=== PATIENT | male | born 1955 | race Caucasian/White ===

== ENCOUNTER 2019-09-21 15:20 | Inpatient (IN) | payer MEDICARE ==
[~2019-09-21] VITALS: Ht 172.7 cm; Wt 65.2 kg
[2019-09-21 15:52] LABS: Basophils # (auto) 0.1 10 ^3/uL (0-0.2); Basophils % (auto) 0.5 % (0.0-2.0); Eosinophils # (auto) 0 10 ^3/uL (0-0.8); Hematocrit 40.3 % (41.0-53.0); Hemoglobin 13.6 g/dL (13.5-17.5); Lymphocytes # (auto) 0.5 10 ^3/uL (0.4-5.4); Lymphocytes % (auto) 2.5 % (10.0-50.0); Mean Corpuscular Hemoglobin 29.3 pg (28.0-32.0); Mean Corpuscular Hgb Conc. 33.7 g/dL (32.0-36.0); Monocytes # (auto) 1.9 10 ^3/uL (0-1.3); Monocytes % (auto) 9.1 % (0.0-12.0); Neutrophils # (auto) 18.2 10 ^3/uL (1.6-8.6); Neutrophils % (auto) 87.9 % (37.0-80.0); Platelet Count (auto) 355 10^3/uL (140-450); Red Blood Cells 4.63 10^6/uL (4.5-5.90); Red Cell Distribution Width 14.8 % (11.8-14.3); White Blood Cell 20.7 10^3/uL (4.4-10.8)
[2019-09-21 16:08] LABS: Albumin 3.5 g/dL (3.4-5.0); BUN/Creatinine Ratio 14.9; Potassium 3.7 mmol/L (3.5-5.1)
[2019-09-21 16:20] LABS: Bilirubin, Total 0.9 mg/dL (0.2-1.0); Total Protein 8.4 g/dL (6.4-8.2)
[2019-09-21] MEDS ORDERED: SODIUM CHLORIDE 0.9% 500 ML IV ONE ×2 (17:45→21:45)
[2019-09-21] MEDS ORDERED: cefTRIAXone 1GM/50ML D5W 50 ML IV ONE (17:45)
[2019-09-21] MEDS ORDERED: levoFLOXacin 500MG 100 ML IV ONE (19:15)
[2019-09-21] MEDS ORDERED: ASPirin-EC 81 mg tab PO ONE (21:15)
[2019-09-21] MEDS ORDERED: ONDANSETRON HCL 4 MG/2 ML VIAL IV ONE (21:15)
[2019-09-21] MEDS ORDERED: KETOROLAC TROMETH 15 mg/ml 1ML VL IV ONE (21:30)
[2019-09-21] MEDS ORDERED: TEMAZEPAM 15 MG CAP PO PRN (21:45)
[2019-09-21] MEDS ORDERED: TAMSULOSIN HYDROCHLORIDE 0.4 MG CAP PO ONE (21:45)
[2019-09-21] MEDS ORDERED: ACETAMINOPHEN 325 MG TAB PO PRN (21:45)
[2019-09-21] MEDS ORDERED: ONDANSETRON HCL 4 MG/2 ML VIAL IV PRN (21:45)
[2019-09-21] MEDS ORDERED: MORPHINE SULF INJ 2 MG/ML SYRINGE 1ML IV PRN (22:00)
[2019-09-21] MEDS ORDERED: NITROGLYCERIN 0.4 MG SL TAB SL PRN (22:00)
[2019-09-21 22:32] LABS: Urine Bacteria MOD /hpf (None Seen); Urine Blood 1+ /uL (Negative); Urine Specific Gravity 1.007 (1.001-1.035); Urine WBC 126 /hpf (0 - 3); Urine WBC Clumps PRESENT /hpf (None Seen)
[2019-09-21 22:47] LABS: Alcohol, Urine < 3.0 mg/dL (0-5); Amphetamine Screen, Urine POSITIVE (NEGATIVE); Barbiturate Scree,Urine NEGATIVE (NEGATIVE); Benzodiazephine Screen, Urine NEGATIVE (NEGATIVE); Cannabinoid Screen, Urine NEGATIVE (NEGATIVE); Cocaine Screen, Urine NEGATIVE (NEGATIVE); Phencyclidine Screen, Urine NEGATIVE (NEGATIVE)
[2019-09-21 22:55] LABS: Opiate Scree,Urine NEGATIVE (NEGATIVE)
[2019-09-21] MEDS: SODIUM CHLORIDE 0.9% 1,000 ML IV SCH (23:00)
[2019-09-21] MEDS ORDERED: LABETALOL HCL 5 MG/ML 4ML SYRINGE IV ONE (23:00)
[2019-09-21] MEDS ORDERED: LABETALOL HCL 5 MG/ML ML 20ML VIAL IV ONE (23:28)
[2019-09-22] VITALS (8 sets, daily range): BP systolic 121–139; BP diastolic 75–95
[2019-09-22 06:56] LABS: Basophils # (auto) 0.1 10 ^3/uL (0-0.2); Basophils % (auto) 0.5 % (0.0-2.0); Eosinophils # (auto) 0 10 ^3/uL (0-0.8); Eosinophils % (auto) 0.1 % (0.0-7.0); Hematocrit 40.3 % (41.0-53.0); Hemoglobin 13.9 g/dL (13.5-17.5); Lymphocytes # (auto) 2.1 10 ^3/uL (0.4-5.4); Lymphocytes % (auto) 11.2 % (10.0-50.0); Mean Corpuscular Hemoglobin 30.2 pg (28.0-32.0); Mean Corpuscular Hgb Conc. 34.5 g/dL (32.0-36.0); Mean Corpuscular Volume 87.4 fL (80.0-100.0); Monocytes # (auto) 2.9 10 ^3/uL (0-1.3); Monocytes % (auto) 15.4 % (0.0-12.0); Neutrophils # (auto) 13.6 10 ^3/uL (1.6-8.6); Neutrophils % (auto) 72.8 % (37.0-80.0); Platelet Count (auto) 315 10^3/uL (140-450); Red Blood Cells 4.61 10^6/uL (4.5-5.90); White Blood Cell 18.6 10^3/uL (4.4-10.8)
[2019-09-22 07:18] LABS: Albumin 2.8 g/dL (3.4-5.0); Calcium 8.6 mg/dL (8.5-10.1); Potassium 4.2 mmol/L (3.5-5.1)
[2019-09-22 07:20] LABS: BUN/Creatinine Ratio 15.4
[2019-09-22 07:23] LABS: Bilirubin, Total 0.7 mg/dL (0.2-1.0); Total Protein 7.4 g/dL (6.4-8.2)
[2019-09-22] MEDS: cefTRIAXone 1GM/50ML D5W 50 ML IV SCH (08:22)
[2019-09-22] MEDS: SODIUM CHLORIDE 0.9% 1,000 ML IV SCH (08:23)
[2019-09-22] MEDS: PANTOPRAZOLE 40 MG/10 ML VIAL INJ IV SCH (09:46)
[2019-09-22] MEDS: METOPROLOL TARTRATE 50 MG TAB PO SCH ×2 (09:47→21:44)
[2019-09-22] MEDS ORDERED: ASPirin 81 mg TAB PO SCH (10:00)
[2019-09-22] MEDS: TAMSULOSIN HYDROCHLORIDE 0.4 MG CAP PO SCH (17:25)
[2019-09-22] MEDS ORDERED: MAGNESIUM OXIDE 400 MG TAB PO ONE (20:00)
[2019-09-23] MEDS: SODIUM CHLORIDE 0.9% 1,000 ML IV SCH ×2 (04:48→13:54)
[2019-09-23 05:00] VITALS: BP 135/87
[2019-09-23 05:42] LABS: Basophils # (auto) 0.1 10 ^3/uL (0-0.2); Basophils % (auto) 0.8 % (0.0-2.0); Eosinophils # (auto) 0.2 10 ^3/uL (0-0.8); Eosinophils % (auto) 1.4 % (0.0-7.0); Hematocrit 39.3 % (41.0-53.0); Hemoglobin 13.3 g/dL (13.5-17.5); Lymphocytes # (auto) 1.8 10 ^3/uL (0.4-5.4); Lymphocytes % (auto) 15.3 % (10.0-50.0); Mean Corpuscular Hemoglobin 29.5 pg (28.0-32.0); Mean Corpuscular Hgb Conc. 33.8 g/dL (32.0-36.0); Mean Corpuscular Volume 87.3 fL (80.0-100.0); Monocytes % (auto) 16.5 % (0.0-12.0); Nucleated Red Blood Cells % 0.1 %; Platelet Count (auto) 311 10^3/uL (140-450); Red Cell Distribution Width 15.1 % (11.8-14.3); White Blood Cell 12.1 10^3/uL (4.4-10.8)
[2019-09-23 05:57] LABS: BUN/Creatinine Ratio 17.4; Calcium 8.6 mg/dL (8.5-10.1); Potassium 4.4 mmol/L (3.5-5.1)
[2019-09-23 09:00] VITALS: BP 143/92
[2019-09-23] MEDS: cefTRIAXone 1GM/50ML D5W 50 ML IV SCH (09:00)
[2019-09-23] MEDS ORDERED: ADENOSINE 63 MG in GIVE UN-DILUTED 0 ML IV ONE (09:15)
[2019-09-23] MEDS: MAGNESIUM OXIDE 400 MG TAB PO SCH (10:48)
[2019-09-23] MEDS: METOPROLOL TARTRATE 50 MG TAB PO SCH ×2 (10:48→22:01)
[2019-09-23] MEDS: PANTOPRAZOLE 40 MG/10 ML VIAL INJ IV SCH (10:48)
[2019-09-23] MEDS: ASPirin 81 mg TAB PO SCH (10:52)
[2019-09-23 13:00] VITALS: BP 154/90
[2019-09-23] MEDS: AMPICILLIN INJ 1 GM in SODIUM CHL 0.9% 50 ML IV SCH ×3 (13:14→23:37)
[2019-09-23 17:00] VITALS: BP 131/82
[2019-09-23] MEDS: TAMSULOSIN HYDROCHLORIDE 0.4 MG CAP PO SCH (18:06)
[2019-09-23 22:00] VITALS: BP 145/85
[2019-09-24 05:00] VITALS: BP 132/79
[2019-09-24] MEDS: AMPICILLIN INJ 1 GM in SODIUM CHL 0.9% 50 ML IV SCH ×4 (05:41→23:33)
[2019-09-24 06:40] LABS: Basophils # (auto) 0.1 10 ^3/uL (0-0.2); Basophils % (auto) 1.2 % (0.0-2.0); Eosinophils # (auto) 0.4 10 ^3/uL (0-0.8); Eosinophils % (auto) 3.8 % (0.0-7.0); Hematocrit 40.3 % (41.0-53.0); Hemoglobin 13.5 g/dL (13.5-17.5); Lymphocytes # (auto) 1.8 10 ^3/uL (0.4-5.4); Lymphocytes % (auto) 17.2 % (10.0-50.0); Mean Corpuscular Hemoglobin 29.3 pg (28.0-32.0); Mean Corpuscular Hgb Conc. 33.5 g/dL (32.0-36.0); Mean Corpuscular Volume 87.3 fL (80.0-100.0); Monocytes # (auto) 1.2 10 ^3/uL (0-1.3); Monocytes % (auto) 11.2 % (0.0-12.0); Neutrophils # (auto) 7.1 10 ^3/uL (1.6-8.6); Neutrophils % (auto) 66.6 % (37.0-80.0); Platelet Count (auto) 376 10^3/uL (140-450); Red Blood Cells 4.61 10^6/uL (4.5-5.90); Red Cell Distribution Width 14.6 % (11.8-14.3); White Blood Cell 10.6 10^3/uL (4.4-10.8)
[2019-09-24 07:01] LABS: Albumin 2.6 g/dL (3.4-5.0); Calcium 8.7 mg/dL (8.5-10.1); Potassium 4.4 mmol/L (3.5-5.1)
[2019-09-24 07:02] LABS: BUN/Creatinine Ratio 17.6
[2019-09-24 07:05] LABS: Bilirubin, Total 0.5 mg/dL (0.2-1.0); Total Protein 7.9 g/dL (6.4-8.2)
[2019-09-24 08:44] VITALS: BP 146/87
[2019-09-24] MEDS: MAGNESIUM OXIDE 400 MG TAB PO SCH (10:02)
[2019-09-24] MEDS: SODIUM CHLORIDE 0.9% 1,000 ML IV SCH ×2 (10:03→17:39)
[2019-09-24] MEDS: ASPirin 81 mg TAB PO SCH (10:03)
[2019-09-24] MEDS: PANTOPRAZOLE 40 MG/10 ML VIAL INJ IV SCH (10:03)
[2019-09-24] MEDS: METOPROLOL TARTRATE 50 MG TAB PO SCH ×2 (10:03→22:11)
[2019-09-24 12:29] VITALS: BP 133/81
[2019-09-24 16:33] VITALS: BP 137/78
[2019-09-24] MEDS: TAMSULOSIN HYDROCHLORIDE 0.4 MG CAP PO SCH (17:39)
[2019-09-24 22:00] VITALS: BP 148/79
[2019-09-25 05:00] VITALS: BP 142/85
[2019-09-25] MEDS: SODIUM CHLORIDE 0.9% 1,000 ML IV SCH ×2 (05:18→17:45)
[2019-09-25] MEDS: AMPICILLIN INJ 1 GM in SODIUM CHL 0.9% 50 ML IV SCH ×4 (05:37→23:39)
[2019-09-25 06:06] LABS: Basophils # (auto) 0.1 10 ^3/uL (0-0.2); Basophils % (auto) 0.9 % (0.0-2.0); Eosinophils # (auto) 0.5 10 ^3/uL (0-0.8); Eosinophils % (auto) 4.2 % (0.0-7.0); Hemoglobin 14.1 g/dL (13.5-17.5); Lymphocytes % (auto) 16.4 % (10.0-50.0); Mean Corpuscular Hemoglobin 29.6 pg (28.0-32.0); Mean Corpuscular Hgb Conc. 34.3 g/dL (32.0-36.0); Mean Corpuscular Volume 86.3 fL (80.0-100.0); Monocytes # (auto) 1.4 10 ^3/uL (0-1.3); Monocytes % (auto) 11.6 % (0.0-12.0); Neutrophils # (auto) 8.3 10 ^3/uL (1.6-8.6); Neutrophils % (auto) 66.9 % (37.0-80.0); Nucleated Red Blood Cells % 0.2 %; Platelet Count (auto) 412 10^3/uL (140-450); Red Blood Cells 4.75 10^6/uL (4.5-5.90); Red Cell Distribution Width 14.5 % (11.8-14.3); White Blood Cell 12.5 10^3/uL (4.4-10.8)
[2019-09-25 06:27] LABS: Albumin 2.9 g/dL (3.4-5.0); Calcium 9.1 mg/dL (8.5-10.1); Potassium 4.5 mmol/L (3.5-5.1)
[2019-09-25 06:31] LABS: BUN/Creatinine Ratio 18.2; Bilirubin, Total 0.3 mg/dL (0.2-1.0); Total Protein 8.2 g/dL (6.4-8.2)
[2019-09-25 09:09] VITALS: BP 150/86
[2019-09-25] MEDS: PANTOPRAZOLE 40 MG/10 ML VIAL INJ IV SCH (10:13)
[2019-09-25] MEDS: ASPirin 81 mg TAB PO SCH (10:13)
[2019-09-25] MEDS: METOPROLOL TARTRATE 50 MG TAB PO SCH ×2 (10:14→22:10)
[2019-09-25 13:00] VITALS: BP 136/86
[2019-09-25 16:38] VITALS: BP 132/78
[2019-09-25] MEDS: TAMSULOSIN HYDROCHLORIDE 0.4 MG CAP PO SCH (17:44)
[2019-09-25 22:00] VITALS: BP 140/75
[2019-09-26] MEDS ORDERED: SODIUM CHLORIDE 0.9% 1,000 ML IV SCH (00:01)
[2019-09-26 05:00] VITALS: BP 130/80
[2019-09-26 05:24] LABS: Basophils # (auto) 0.1 10 ^3/uL (0-0.2); Basophils % (auto) 1.2 % (0.0-2.0); Eosinophils # (auto) 0.6 10 ^3/uL (0-0.8); Eosinophils % (auto) 4.9 % (0.0-7.0); Hematocrit 42.7 % (41.0-53.0); Hemoglobin 14.3 g/dL (13.5-17.5); Lymphocytes # (auto) 2.9 10 ^3/uL (0.4-5.4); Lymphocytes % (auto) 25.4 % (10.0-50.0); Mean Corpuscular Hemoglobin 29.3 pg (28.0-32.0); Mean Corpuscular Hgb Conc. 33.4 g/dL (32.0-36.0); Mean Corpuscular Volume 87.8 fL (80.0-100.0); Monocytes # (auto) 1.3 10 ^3/uL (0-1.3); Monocytes % (auto) 11.7 % (0.0-12.0); Neutrophils # (auto) 6.5 10 ^3/uL (1.6-8.6); Neutrophils % (auto) 56.8 % (37.0-80.0); Platelet Count (auto) 421 10^3/uL (140-450); Red Blood Cells 4.86 10^6/uL (4.5-5.90); Red Cell Distribution Width 15.1 % (11.8-14.3); White Blood Cell 11.5 10^3/uL (4.4-10.8)
[2019-09-26 05:42] LABS: Albumin 2.7 g/dL (3.4-5.0); BUN/Creatinine Ratio 19.4; Calcium 8.8 mg/dL (8.5-10.1); INR 1.06 (0.9-1.15); Partial Thromboplastin Time 27.9 sec (23.64-32.05); Potassium 4.4 mmol/L (3.5-5.1)
[2019-09-26 05:45] LABS: Bilirubin, Total 0.4 mg/dL (0.2-1.0); Total Protein 8.1 g/dL (6.4-8.2)
[2019-09-26] MEDS: AMPICILLIN INJ 1 GM in SODIUM CHL 0.9% 50 ML IV SCH ×3 (06:07→18:40)
[2019-09-26] MEDS: SODIUM CHLORIDE 0.9% 1,000 ML IV SCH ×2 (06:08→21:42)
[2019-09-26 08:00] VITALS: BP 124/73
[2019-09-26] MEDS: PANTOPRAZOLE 40 MG/10 ML VIAL INJ IV SCH (10:05)
[2019-09-26] MEDS: ASPirin 81 mg TAB PO SCH (10:05)
[2019-09-26] MEDS: METOPROLOL TARTRATE 50 MG TAB PO SCH ×2 (10:06→21:42)
[2019-09-26 12:00] VITALS: BP 139/87
[2019-09-26 17:00] VITALS: BP 127/77
[2019-09-26] MEDS: TAMSULOSIN HYDROCHLORIDE 0.4 MG CAP PO SCH (18:40)
[2019-09-26 22:00] VITALS: BP 131/77
[2019-09-27] MEDS: AMPICILLIN INJ 1 GM in SODIUM CHL 0.9% 50 ML IV SCH ×4 (00:10→18:45)
[2019-09-27 05:00] VITALS: BP 122/72
[2019-09-27 06:38] LABS: Calcium 9.5 mg/dL (8.5-10.1); Potassium 4.5 mmol/L (3.5-5.1)
[2019-09-27 06:41] LABS: BUN/Creatinine Ratio 22.7
[2019-09-27 08:00] VITALS: BP 130/72
[2019-09-27] MEDS: PANTOPRAZOLE 40 MG/10 ML VIAL INJ IV SCH (09:56)
[2019-09-27] MEDS: METOPROLOL TARTRATE 50 MG TAB PO SCH ×2 (09:57→21:56)
[2019-09-27] MEDS: ASPirin 81 mg TAB PO SCH (09:57)
[2019-09-27] MEDS: SODIUM CHLORIDE 0.9% 1,000 ML IV SCH ×2 (09:57→19:58)
[2019-09-27 13:00] VITALS: BP 120/71
[2019-09-27 17:00] VITALS: BP 135/70
[2019-09-27] MEDS: TAMSULOSIN HYDROCHLORIDE 0.4 MG CAP PO SCH (18:45)
[2019-09-27 22:00] VITALS: BP 131/72
[2019-09-28 05:00] VITALS: BP 133/72
[2019-09-28] MEDS: SODIUM CHLORIDE 0.9% 1,000 ML IV SCH ×2 (05:45→15:56)
[2019-09-28] MEDS: AMPICILLIN INJ 1 GM in SODIUM CHL 0.9% 50 ML IV SCH ×5 (05:45→18:37)
[2019-09-28] MEDS: PANTOPRAZOLE 40 MG TAB PO SCH (05:46)
[2019-09-28 07:11] LABS: Basophils # (auto) 0.1 10 ^3/uL (0-0.2); Basophils % (auto) 0.9 % (0.0-2.0); Eosinophils # (auto) 0.4 10 ^3/uL (0-0.8); Eosinophils % (auto) 3.5 % (0.0-7.0); Hematocrit 40.5 % (41.0-53.0); Hemoglobin 13.8 g/dL (13.5-17.5); Lymphocytes # (auto) 3.4 10 ^3/uL (0.4-5.4); Lymphocytes % (auto) 26.5 % (10.0-50.0); Mean Corpuscular Hemoglobin 29.7 pg (28.0-32.0); Mean Corpuscular Hgb Conc. 34.1 g/dL (32.0-36.0); Mean Corpuscular Volume 87.2 fL (80.0-100.0); Monocytes # (auto) 1.2 10 ^3/uL (0-1.3); Monocytes % (auto) 9.2 % (0.0-12.0); Neutrophils # (auto) 7.6 10 ^3/uL (1.6-8.6); Neutrophils % (auto) 59.9 % (37.0-80.0); Nucleated Red Blood Cells % 0.1 %; Platelet Count (auto) 432 10^3/uL (140-450); Red Blood Cells 4.64 10^6/uL (4.5-5.90); Red Cell Distribution Width 14.5 % (11.8-14.3); White Blood Cell 12.6 10^3/uL (4.4-10.8)
[2019-09-28 07:23] LABS: INR 1.04 (0.9-1.15); Partial Thromboplastin Time 27.1 sec (23.64-32.05)
[2019-09-28 07:28] LABS: BUN/Creatinine Ratio 20.9; Calcium 9.2 mg/dL (8.5-10.1); Potassium 4.7 mmol/L (3.5-5.1)
[2019-09-28 09:00] VITALS: BP 122/70
[2019-09-28 13:00] VITALS: BP 140/83
[2019-09-28] MEDS: ASPirin 81 mg TAB PO SCH (15:55)
[2019-09-28] MEDS: METOPROLOL TARTRATE 50 MG TAB PO SCH ×2 (15:55→22:19)
[2019-09-28 17:29] VITALS: BP 135/80
[2019-09-28] MEDS: TAMSULOSIN HYDROCHLORIDE 0.4 MG CAP PO SCH (18:37)
[2019-09-28 22:00] VITALS: BP 132/73
[2019-09-29] MEDS: AMPICILLIN INJ 1 GM in SODIUM CHL 0.9% 50 ML IV SCH ×4 (01:04→18:35)
[2019-09-29] MEDS: SODIUM CHLORIDE 0.9% 1,000 ML IV SCH ×3 (01:30→22:33)
[2019-09-29 05:00] VITALS: BP_SYST 124; BP_SYST 134; BP_DIAS 72; BP_DIAS 79
[2019-09-29] MEDS: PANTOPRAZOLE 40 MG TAB PO SCH (06:00)
[2019-09-29] MEDS ORDERED: FUROSEMIDE 100 MG/10ML VIAL IV ONE ×2 (08:00→10:45)
[2019-09-29 09:02] LABS: Basophils # (auto) 0.1 10 ^3/uL (0-0.2); Basophils % (auto) 0.9 % (0.0-2.0); Eosinophils # (auto) 0.5 10 ^3/uL (0-0.8); Eosinophils % (auto) 3.6 % (0.0-7.0); Hematocrit 39.4 % (41.0-53.0); Hemoglobin 13.3 g/dL (13.5-17.5); Lymphocytes # (auto) 2.8 10 ^3/uL (0.4-5.4); Lymphocytes % (auto) 22.5 % (10.0-50.0); Mean Corpuscular Hemoglobin 29.4 pg (28.0-32.0); Mean Corpuscular Hgb Conc. 33.8 g/dL (32.0-36.0); Mean Corpuscular Volume 87.1 fL (80.0-100.0); Monocytes # (auto) 1.2 10 ^3/uL (0-1.3); Monocytes % (auto) 9.8 % (0.0-12.0); Neutrophils # (auto) 7.9 10 ^3/uL (1.6-8.6); Neutrophils % (auto) 63.2 % (37.0-80.0); Nucleated Red Blood Cells % 0.1 %; Platelet Count (auto) 431 10^3/uL (140-450); Red Blood Cells 4.53 10^6/uL (4.5-5.90); Red Cell Distribution Width 14.5 % (11.8-14.3); White Blood Cell 12.6 10^3/uL (4.4-10.8)
[2019-09-29 09:19] LABS: BUN/Creatinine Ratio 22.5; Calcium 8.8 mg/dL (8.5-10.1); Potassium 4.5 mmol/L (3.5-5.1)
[2019-09-29] MEDS: METOPROLOL TARTRATE 50 MG TAB PO SCH ×2 (10:00→22:00)
[2019-09-29] MEDS: ASPirin 81 mg TAB PO SCH (10:00)
[2019-09-29] MEDS ORDERED: ceFAZolin 1GM/50ML 50 ML IV ONE (14:51)
[2019-09-29] MEDS ORDERED: SODIUM CHLORIDE LOCK 10 ML ONE (16:05)
[2019-09-29] MEDS ORDERED: MIDAZOLAM HCL 1MG/1ML-2 ML VIAL ONE (16:05)
[2019-09-29] MEDS ORDERED: ONDANSETRON HCL 4 MG/2 ML VIAL ONE (16:05)
[2019-09-29] MEDS ORDERED: fentaNYL CITRATE 100 MCG/2 ML VL ONE (16:05)
[2019-09-29] MEDS ORDERED: PROPOFOL 10 MG/ML 20 ML IV ONE (16:05)
[2019-09-29] MEDS ORDERED: METOCLOPRAMIDE HCL 5MG/ml INJ 2ml VIAL IV PRN (17:15)
[2019-09-29] MEDS ORDERED: HYDROmorphone HCL 2 MG/ML VL IV PRN (17:15)
[2019-09-29] MEDS ORDERED: fentaNYL CITRATE 100 MCG/2 ML VL IV PRN (17:15)
[2019-09-29] MEDS ORDERED: MORPHINE SULFATE 4 MG/ML SYR/VIAL IV PRN (17:15)
[2019-09-29] MEDS: TAMSULOSIN HYDROCHLORIDE 0.4 MG CAP PO SCH (18:35)
[2019-09-29 22:00] VITALS: BP 116/62
[2019-09-30 05:00] VITALS: BP 127/70
[2019-09-30 06:13] LABS: Calcium 8.8 mg/dL (8.5-10.1); Potassium 3.9 mmol/L (3.5-5.1)
[2019-09-30 06:16] LABS: BUN/Creatinine Ratio 22.1
[2019-09-30] MEDS: PANTOPRAZOLE 40 MG TAB PO SCH (06:22)
[2019-09-30] MEDS: AMPICILLIN INJ 1 GM in SODIUM CHL 0.9% 50 ML IV SCH ×5 (06:22→17:46)
[2019-09-30] MEDS: SODIUM CHLORIDE 0.9% 1,000 ML IV SCH ×2 (07:30→17:46)
[2019-09-30 09:00] VITALS: BP_SYST 145; BP_SYST 166; BP_DIAS 100; BP_DIAS 86
[2019-09-30] MEDS: FINASTERIDE 5 MG TAB PO SCH (10:21)
[2019-09-30] MEDS: METOPROLOL TARTRATE 50 MG TAB PO SCH ×2 (10:22→22:08)
[2019-09-30] MEDS: ASPirin 81 mg TAB PO SCH (10:22)
[2019-09-30 13:00] VITALS: BP 138/81
[2019-09-30 16:43] VITALS: BP 121/75
[2019-09-30] MEDS: TAMSULOSIN HYDROCHLORIDE 0.4 MG CAP PO SCH (17:47)
[2019-09-30 22:00] VITALS: BP 130/69
[2019-10-01] MEDS: AMPICILLIN INJ 1 GM in SODIUM CHL 0.9% 50 ML IV SCH ×4 (01:00→18:53)
[2019-10-01 05:00] VITALS: BP 126/76
[2019-10-01 05:40] LABS: Basophils # (auto) 0.1 10 ^3/uL (0-0.2); Basophils % (auto) 1.2 % (0.0-2.0); Eosinophils # (auto) 0.3 10 ^3/uL (0-0.8); Eosinophils % (auto) 2.9 % (0.0-7.0); Hematocrit 40.2 % (41.0-53.0); Hemoglobin 13.5 g/dL (13.5-17.5); Lymphocytes % (auto) 29.6 % (10.0-50.0); Mean Corpuscular Hemoglobin 29.4 pg (28.0-32.0); Mean Corpuscular Hgb Conc. 33.6 g/dL (32.0-36.0); Mean Corpuscular Volume 87.5 fL (80.0-100.0); Monocytes # (auto) 1.3 10 ^3/uL (0-1.3); Monocytes % (auto) 12.4 % (0.0-12.0); Neutrophils # (auto) 5.5 10 ^3/uL (1.6-8.6); Neutrophils % (auto) 53.9 % (37.0-80.0); Nucleated Red Blood Cells % 0.1 %; Platelet Count (auto) 434 10^3/uL (140-450); Red Cell Distribution Width 14.3 % (11.8-14.3); White Blood Cell 10.2 10^3/uL (4.4-10.8)
[2019-10-01 05:49] LABS: Albumin 2.9 g/dL (3.4-5.0); BUN/Creatinine Ratio 23.3; Calcium 8.8 mg/dL (8.5-10.1); Potassium 4.4 mmol/L (3.5-5.1)
[2019-10-01 05:51] LABS: Bilirubin, Total 0.4 mg/dL (0.2-1.0); Total Protein 7.8 g/dL (6.4-8.2)
[2019-10-01] MEDS: PANTOPRAZOLE 40 MG TAB PO SCH (06:49)
[2019-10-01 08:00] VITALS: BP 126/76
[2019-10-01 08:30] VITALS: BP 127/75
[2019-10-01] MEDS: METOPROLOL TARTRATE 50 MG TAB PO SCH ×2 (09:51→22:18)
[2019-10-01] MEDS: ASPirin 81 mg TAB PO SCH (09:51)
[2019-10-01] MEDS: FINASTERIDE 5 MG TAB PO SCH (09:51)
[2019-10-01 12:36] VITALS: BP 136/77
[2019-10-01 17:00] VITALS: BP 141/79
[2019-10-01] MEDS: TAMSULOSIN HYDROCHLORIDE 0.4 MG CAP PO SCH (18:53)
[2019-10-01 21:29] VITALS: BP 134/65
[2019-10-02] VITALS (8 sets, daily range): BP systolic 109–146; BP diastolic 53–77
[2019-10-02] MEDS: AMPICILLIN INJ 1 GM in SODIUM CHL 0.9% 50 ML IV SCH ×5 (00:23→23:52)
[2019-10-02 06:23] LABS: Basophils # (auto) 0.2 10 ^3/uL (0-0.2); Basophils % (auto) 2.2 % (0.0-2.0); Eosinophils # (auto) 0.4 10 ^3/uL (0-0.8); Eosinophils % (auto) 3.9 % (0.0-7.0); Hematocrit 38.6 % (41.0-53.0); Hemoglobin 12.9 g/dL (13.5-17.5); Lymphocytes # (auto) 3.4 10 ^3/uL (0.4-5.4); Lymphocytes % (auto) 33.5 % (10.0-50.0); Mean Corpuscular Hemoglobin 29.3 pg (28.0-32.0); Mean Corpuscular Hgb Conc. 33.4 g/dL (32.0-36.0); Mean Corpuscular Volume 87.8 fL (80.0-100.0); Monocytes # (auto) 1.2 10 ^3/uL (0-1.3); Monocytes % (auto) 12.2 % (0.0-12.0); Neutrophils # (auto) 4.9 10 ^3/uL (1.6-8.6); Neutrophils % (auto) 48.2 % (37.0-80.0); Nucleated Red Blood Cells % 0.1 %; Platelet Count (auto) 403 10^3/uL (140-450); Red Cell Distribution Width 14.6 % (11.8-14.3); White Blood Cell 10.1 10^3/uL (4.4-10.8)
[2019-10-02 06:42] LABS: Albumin 2.6 g/dL (3.4-5.0); BUN/Creatinine Ratio 21.9; Calcium 8.7 mg/dL (8.5-10.1); Potassium 4.5 mmol/L (3.5-5.1)
[2019-10-02 06:45] LABS: Bilirubin, Total 0.2 mg/dL (0.2-1.0); Total Protein 7.2 g/dL (6.4-8.2)
[2019-10-02] MEDS: PANTOPRAZOLE 40 MG TAB PO SCH (06:49)
[2019-10-02] MEDS: ASPirin 81 mg TAB PO SCH (09:41)
[2019-10-02] MEDS: METOPROLOL TARTRATE 50 MG TAB PO SCH ×2 (09:41→23:08)
[2019-10-02] MEDS: FINASTERIDE 5 MG TAB PO SCH (09:41)
[2019-10-02] MEDS: TAMSULOSIN HYDROCHLORIDE 0.4 MG CAP PO SCH (17:56)
[2019-10-03 04:56] LABS: Basophils # (auto) 0.2 10 ^3/uL (0-0.2); Basophils % (auto) 1.9 % (0.0-2.0); Eosinophils # (auto) 0.4 10 ^3/uL (0-0.8); Hematocrit 38.7 % (41.0-53.0); Hemoglobin 12.9 g/dL (13.5-17.5); Lymphocytes # (auto) 3.2 10 ^3/uL (0.4-5.4); Lymphocytes % (auto) 28.8 % (10.0-50.0); Mean Corpuscular Hemoglobin 29.2 pg (28.0-32.0); Mean Corpuscular Hgb Conc. 33.4 g/dL (32.0-36.0); Mean Corpuscular Volume 87.5 fL (80.0-100.0); Monocytes # (auto) 1.2 10 ^3/uL (0-1.3); Monocytes % (auto) 10.3 % (0.0-12.0); Neutrophils # (auto) 6.2 10 ^3/uL (1.6-8.6); Platelet Count (auto) 396 10^3/uL (140-450); Red Blood Cells 4.43 10^6/uL (4.5-5.90); Red Cell Distribution Width 14.7 % (11.8-14.3); White Blood Cell 11.2 10^3/uL (4.4-10.8)
[2019-10-03 05:00] VITALS: BP 108/75
[2019-10-03 05:15] LABS: Albumin 2.8 g/dL (3.4-5.0); Calcium 8.6 mg/dL (8.5-10.1); Potassium 4.6 mmol/L (3.5-5.1)
[2019-10-03 05:19] LABS: BUN/Creatinine Ratio 21.7; Bilirubin, Total 0.3 mg/dL (0.2-1.0); Total Protein 7.5 g/dL (6.4-8.2)
[2019-10-03 05:30] LABS: INR 1.05 (0.9-1.15); Partial Thromboplastin Time 27.6 sec (23.64-32.05)
[2019-10-03] MEDS: PANTOPRAZOLE 40 MG TAB PO SCH (05:54)
[2019-10-03] MEDS: AMPICILLIN INJ 1 GM in SODIUM CHL 0.9% 50 ML IV SCH ×2 (05:54→11:45)
[2019-10-03 08:00] VITALS: BP 126/66
[2019-10-03 09:02] VITALS: BP 126/66
[2019-10-03] MEDS ORDERED: IODIXANOL 320MG/ML 100ML BTL IV ONE (09:21)
[2019-10-03] MEDS ORDERED: LIDOCAINE 2%HCL (LOCAL ANESTH.) INJ 20ML MDV ONE (09:21)
[2019-10-03] MEDS ORDERED: ANGIOMAX 250 MG VIAL IV ONE (09:33)
[2019-10-03] MEDS ORDERED: VERAPAMIL 2.5MG/ML INJ 2ML VIAL IV ONE (09:33)
[2019-10-03] MEDS ORDERED: fentaNYL CITRATE 100 MCG/2 ML VL ONE (09:33)
[2019-10-03] MEDS ORDERED: MIDAZOLAM HCL 1MG/1ML-2 ML VIAL ONE (09:33)
[2019-10-03] MEDS ORDERED: HEPARIN SODIUM (PORCINE) 5000 UNITS/ML 1ML VIAL ONE (09:33)
[2019-10-03] MEDS ORDERED: SODIUM CHL 0.9% 0 ML ONE (09:33)
[2019-10-03] MEDS: METOPROLOL TARTRATE 50 MG TAB PO SCH (11:42)
[2019-10-03] MEDS: ASPirin 81 mg TAB PO SCH (11:44)
[2019-10-03] MEDS: FINASTERIDE 5 MG TAB PO SCH (11:44)
[2019-10-03 13:00] VITALS: BP 121/56
[2019-10-03 16:27] VITALS: BP 117/60
[2019-10-03] MEDS ORDERED: SODIUM CHLORIDE 0.9% 1,000 ML IV ONE (17:15)
[2019-10-03] MEDS: TAMSULOSIN HYDROCHLORIDE 0.4 MG CAP PO SCH (18:23)
[2019-10-03] MEDS: METOPROLOL TARTRATE 25 MG TAB PO SCH (21:55)
[2019-10-03 22:00] VITALS: BP 121/71
[2019-10-04 05:00] VITALS: BP 126/71
[2019-10-04] MEDS: PANTOPRAZOLE 40 MG TAB PO SCH (05:58)
[2019-10-04 06:50] LABS: Calcium 9.5 mg/dL (8.5-10.1); Magnesium 1.9 mg/dL (1.6-2.6); Potassium 4.6 mmol/L (3.5-5.1)
[2019-10-04 06:53] LABS: BUN/Creatinine Ratio 22.8
[2019-10-04 09:00] VITALS: BP 141/88
[2019-10-04] MEDS ORDERED: MAGNESIUM OXIDE 400 MG TAB PO ONE (10:00)
[2019-10-04] MEDS: FINASTERIDE 5 MG TAB PO SCH (10:20)
[2019-10-04] MEDS: ASPirin 81 mg TAB PO SCH (10:20)
[2019-10-04] MEDS: METOPROLOL TARTRATE 25 MG TAB PO SCH ×2 (10:20→21:23)
[2019-10-04 13:00] VITALS: BP 138/72
[2019-10-04 14:54] VITALS: BP 141/88
[2019-10-04 17:00] VITALS: BP 130/74
[2019-10-04] MEDS: TAMSULOSIN HYDROCHLORIDE 0.4 MG CAP PO SCH (19:06)
[2019-10-04 21:44] VITALS: BP 119/77
[2019-10-05 04:46] VITALS: BP 110/82
[2019-10-05] MEDS: PANTOPRAZOLE 40 MG TAB PO SCH (05:50)
[2019-10-05 06:23] LABS: BUN/Creatinine Ratio 23.9; Potassium 4.3 mmol/L (3.5-5.1)
[2019-10-05 09:00] VITALS: BP 122/68
[2019-10-05] MEDS: ASPirin 81 mg TAB PO SCH (10:09)
[2019-10-05] MEDS: METOPROLOL TARTRATE 25 MG TAB PO SCH (10:10)
[2019-10-05] MEDS: FINASTERIDE 5 MG TAB PO SCH (10:11)
[2019-10-05 17:00] VITALS: BP 151/77
== END 2019-10-05 18:30 | disposition home or self-care (01) | DRG 853 ==
LOC: ER 15:20 → EDBD 15:20 → TELE 15:21 → TELE-WESTW 23:19
PROVIDERS: ADMIT Nurse Practitioner; ATTEND Family Medicine
PROC: 0T768DZ Dilation of Right Ureter with Intraluminal Device, Via Natural or Artificial Opening Endoscopic (ICD-10-PCS; 2019-09-29)
PROC: 4A023N7 Measurement of Cardiac Sampling and Pressure, Left Heart, Percutaneous Approach (ICD-10-PCS; principal; 2019-10-03)
PROC: B211YZZ Fluoroscopy of Multiple Coronary Arteries using Other Contrast (ICD-10-PCS; 2019-10-03)
PROC: B215YZZ Fluoroscopy of Left Heart using Other Contrast (ICD-10-PCS; 2019-10-03)
DX: A41.9 Sepsis, unspecified organism (principal); I50.23 Acute on chronic systolic (congestive) heart failure; I21.A1 Myocardial infarction type 2; N39.0 Urinary tract infection, site not specified; N17.9 Acute kidney failure, unspecified; N10 Acute pyelonephritis; I13.0 Hypertensive heart and chronic kidney disease with heart failure and stage 1 through stage 4 chronic kidney disease, or unspecified chronic kidney disease; N13.30 Unspecified hydronephrosis; N13.9 Obstructive and reflux uropathy, unspecified; E86.0 Dehydration; R33.9 Retention of urine, unspecified; F15.10 Other stimulant abuse, uncomplicated; N18.3 Chronic kidney disease, stage 3 (moderate); R65.20 Severe sepsis without septic shock; B95.1 Streptococcus, group B, as the cause of diseases classified elsewhere; Z91.19 Patient's noncompliance with other medical treatment and regimen; Z88.5 Allergy status to narcotic agent; Z87.891 Personal history of nicotine dependence
CPT/HCPCS: 36415; 71045; 74018; 74176; 76000; 76775; 78452; 78707; 80048; 80053; 80307; 81001; 82962; 83605; 83735; 83880; 84154; 84484; 85025; 85610; 85730; 86850; 86900; 86901; 87040; 87086; 93005; 93017; 93306; 93458; 96365; 96367; 96375; 97163; 99152; C9113; G0378; J0153; J0690; J0696; J1956; J2250; J2405; J2704; Q9967

== ENCOUNTER 2019-10-30 16:00 | Emergency (ER) | payer MEDICARE ==
[~2019-10-30] VITALS: Ht 167.6 cm; Wt 72.6 kg
[2019-10-30 17:20] VITALS: BP 141/74
[2019-10-30] MEDS ORDERED: cefTRIAXone W LIDOCAINE 1 GM IM IM ONE (17:30)
[2019-10-30] MEDS ORDERED: cefTRIAXone SOD 1,000 MG VL ONE (17:44)
== END 2019-10-30 17:51 | disposition home or self-care (01) ==
LOC: ER 16:00
DX: Z46.6 Encounter for fitting and adjustment of urinary device (principal); N39.0 Urinary tract infection, site not specified; I10 Essential (primary) hypertension; Z87.891 Personal history of nicotine dependence
CPT/HCPCS: 81002; 96372; 99283; J0696

== ENCOUNTER → 2019-10-31 | Emergency (ER) | payer MEDICARE ==
[~2019-10-31] VITALS: Ht 167.6 cm; Wt 81.6 kg
[2019-10-31 11:27] VITALS: BP 147/76
== END | disposition home or self-care (01) ==
LOC: EDUNIT# 11:16 → ER 11:25 → EDBD 11:25
DX: Z46.6 Encounter for fitting and adjustment of urinary device (principal); R33.9 Retention of urine, unspecified; I10 Essential (primary) hypertension; F17.210 Nicotine dependence, cigarettes, uncomplicated; Z88.5 Allergy status to narcotic agent
CPT/HCPCS: 51702

== ENCOUNTER 2019-11-10 23:59 | Emergency (ER) | payer MEDICARE ==
[~2019-11-10] VITALS: Ht 167.6 cm; Wt 72.6 kg
[2019-11-11 01:59] LABS: Basophils # (auto) 0.1 10 ^3/uL (0-0.2); Basophils % (auto) 0.6 % (0.0-2.0); Eosinophils # (auto) 0.2 10 ^3/uL (0-0.8); Hematocrit 36.5 % (41.0-53.0); Lymphocytes # (auto) 1.6 10 ^3/uL (0.4-5.4); Lymphocytes % (auto) 7.9 % (10.0-50.0); Mean Corpuscular Hgb Conc. 32.9 g/dL (32.0-36.0); Mean Corpuscular Volume 88.2 fL (80.0-100.0); Monocytes % (auto) 10.3 % (0.0-12.0); Neutrophils # (auto) 15.9 10 ^3/uL (1.6-8.6); Neutrophils % (auto) 80.2 % (37.0-80.0); Platelet Count (auto) 617 10^3/uL (140-450); Red Blood Cells 4.14 10^6/uL (4.5-5.90); Red Cell Distribution Width 14.8 % (11.8-14.3); White Blood Cell 19.8 10^3/uL (4.4-10.8)
[2019-11-11 02:20] LABS: Calcium 8.8 mg/dL (8.5-10.1)
[2019-11-11 02:23] LABS: BUN/Creatinine Ratio 13.9
[2019-11-11 02:25] LABS: Urine Bacteria NONE SEEN /hpf (None Seen); Urine Blood 3+ /uL (Negative); Urine WBC 3213 /hpf (0 - 3)
[2019-11-11 02:26] LABS: Bilirubin, Total 0.5 mg/dL (0.2-1.0); Total Protein 7.8 g/dL (6.4-8.2)
[2019-11-11 02:26] LABS: Urine Specific Gravity 1.018 (1.001-1.035)
[2019-11-11 02:34] LABS: Amphetamine Screen, Urine POSITIVE (NEGATIVE); Barbiturate Scree,Urine NEGATIVE (NEGATIVE); Benzodiazephine Screen, Urine NEGATIVE (NEGATIVE); Cannabinoid Screen, Urine POSITIVE (NEGATIVE); Cocaine Screen, Urine NEGATIVE (NEGATIVE); Opiate Scree,Urine NEGATIVE (NEGATIVE); Phencyclidine Screen, Urine NEGATIVE (NEGATIVE)
[2019-11-11 02:45] VITALS: BP 147/95
[2019-11-11] MEDS ORDERED: cefTRIAXone SOD 1,000 MG VL IM ONE (02:45)
== END 2019-11-11 03:09 | disposition home or self-care (01) ==
LOC: EDBD 23:59 → ER 11-11 00:01
DX: R33.9 Retention of urine, unspecified (principal); R10.9 Unspecified abdominal pain; R53.83 Other fatigue; I10 Essential (primary) hypertension; F17.210 Nicotine dependence, cigarettes, uncomplicated
CPT/HCPCS: 36415; 51702; 80053; 80307; 81001; 83605; 84153; 85025; 87040; 87086; 93005; 96372; 99284; J0696; 87088; 87186

== ENCOUNTER 2019-12-25 23:25 | Inpatient (IN) | payer MEDICARE ==
[~2019-12-25] VITALS: Ht 167.6 cm; Wt 62.9 kg
[2019-12-26 00:13] LABS: Urine Amorphous Crystal MOD /hpf (None Seen); Urine Bacteria MANY /hpf (None Seen); Urine Blood 3+ /uL (Negative); Urine Specific Gravity 1.013 (1.001-1.035); Urine WBC 4303 /hpf (0 - 3); Urine WBC Clumps PRESENT /hpf (None Seen)
[2019-12-26] MEDS ORDERED: cefTRIAXone SOD 1,000 MG VL IM ONE (03:00)
[2019-12-26 03:04] LABS: Calcium 9.2 mg/dL (8.5-10.1); Potassium 4.5 mmol/L (3.5-5.1)
[2019-12-26 03:07] LABS: Bilirubin, Total 0.5 mg/dL (0.2-1.0)
[2019-12-26 03:26] LABS: Hemoglobin 14.1 g/dL (13.5-17.5)
[2019-12-26 03:30] LABS: Hematocrit 43.3 % (41.0-53.0); Mean Corpuscular Hemoglobin 29.2 pg (28.0-32.0); Mean Corpuscular Hgb Conc. 32.7 g/dL (32.0-36.0); Mean Corpuscular Volume 89.2 fL (80.0-100.0); Platelet Count (auto) 529 10^3/uL (140-450); Red Blood Cells 4.85 10^6/uL (4.5-5.90); White Blood Cell 16.1 10^3/uL (4.4-10.8)
[2019-12-26 03:36] LABS: Basophils % (manual) 0 (0.0-2.0); Blast Cells 0; Eosinophils % (manual) 0 (0-7); Metamyelocytes % 0; Myelocytes % 0; Promyelocytes % 0; Reactive Lymphocytes 0
[2019-12-26] MEDS ORDERED: LIDOCAINE 1% HCL (LOCAL ANESTH.) INJ 20ML MDV ONE (04:33)
[2019-12-26] MEDS ORDERED: SODIUM CHLORIDE 0.9% 2,000 ML IV ONE (04:45)
[2019-12-26] MEDS ORDERED: DOCUSATE SOD 100 MG CAP PO PRN (05:00)
[2019-12-26] MEDS ORDERED: ACETAMINOPHEN 325 MG TAB PO PRN (05:00)
[2019-12-26] MEDS ORDERED: ONDANSETRON HCL 4 MG/2 ML VIAL IV PRN (05:00)
[2019-12-26] MEDS ORDERED: cloNIDine HCL 0.1 MG TAB PO PRN (05:00)
[2019-12-26 05:13] LABS: Band Neutrophils % (manual) 3; Lymphocytes % (manual) 33 (10.0-50.0); Monocytes % (manual) 13 (0-12)
[2019-12-26 06:26] LABS: Basophils # (auto) 0.1 10 ^3/uL (0-0.2); Basophils % (auto) 0.8 % (0.0-2.0); Eosinophils # (auto) 0.4 10 ^3/uL (0-0.8); Eosinophils % (auto) 3.1 % (0.0-7.0); Hematocrit 40.9 % (41.0-53.0); Hemoglobin 13.6 g/dL (13.5-17.5); Lymphocytes # (auto) 2.2 10 ^3/uL (0.4-5.4); Lymphocytes % (auto) 18.4 % (10.0-50.0); Mean Corpuscular Hemoglobin 29.4 pg (28.0-32.0); Mean Corpuscular Hgb Conc. 33.3 g/dL (32.0-36.0); Mean Corpuscular Volume 88.3 fL (80.0-100.0); Monocytes % (auto) 16.6 % (0.0-12.0); Neutrophils # (auto) 7.5 10 ^3/uL (1.6-8.6); Neutrophils % (auto) 61.1 % (37.0-80.0); Platelet Count (auto) 527 10^3/uL (140-450); Red Blood Cells 4.63 10^6/uL (4.5-5.90); Red Cell Distribution Width 14.1 % (11.8-14.3); White Blood Cell 12.2 10^3/uL (4.4-10.8)
[2019-12-26 06:54] LABS: Calcium 8.7 mg/dL (8.5-10.1); Potassium 4.2 mmol/L (3.5-5.1)
[2019-12-26 06:57] LABS: BUN/Creatinine Ratio 19.2
[2019-12-26] MEDS: SODIUM CHLORIDE 0.9% 1,000 ML IV SCH ×2 (06:58→21:38)
--- NOTE | 2019-12-26 08:11 | NUR ---
Report Report received from MODULAR SET CREW MEMBERMargot.
--- NOTE | 2019-12-26 08:30 | NUR ---
Patient Arrived Patient arrived to unit, no signs of distress at this time. Respirations even and unlabored. Safety precautions in place, patient oriented to room. Will continue to monitor.
[2019-12-26] MEDS ORDERED: TAMS0.4C36 (08:57)
[2019-12-26 09:02] VITALS: BP 140/80
--- NOTE | 2019-12-26 10:47 | NUR ---
at Station Dr. Casillas at station. Per , placed order for urology consult.
[2019-12-26] MEDS: TAMSULOSIN HYDROCHLORIDE 0.4 MG CAP PO SCH (11:07)
[2019-12-26] MEDS: FINASTERIDE 5 MG TAB PO SCH (11:07)
--- NOTE | 2019-12-26 11:40 | NUR ---
Called Received call from Dr. Butler. Patient to be scheduled for TURP on . New orders received.
[2019-12-26] MEDS: cefTRIAXone 1GM/50ML D5W 50 ML IV SCH (15:00)
--- NOTE | 2019-12-26 15:00 | NUR ---
Urine Sample Urine Sample sent to lab; obtained from Viera Catheter, urine is pale yellow, cloudy and contains sediment.
[2019-12-26 16:12] LABS: Amphetamine Screen, Urine POSITIVE (NEGATIVE); Barbiturate Scree,Urine NEGATIVE (NEGATIVE); Benzodiazephine Screen, Urine NEGATIVE (NEGATIVE); Cannabinoid Screen, Urine POSITIVE (NEGATIVE); Cocaine Screen, Urine NEGATIVE (NEGATIVE); Opiate Scree,Urine NEGATIVE (NEGATIVE); Phencyclidine Screen, Urine NEGATIVE (NEGATIVE)
[2019-12-26 16:17] LABS: Alcohol, Urine < 3.0 mg/dL (0-10)
[2019-12-26 16:57] VITALS: BP 137/79
--- NOTE | 2019-12-26 19:15 | NUR ---
Closing Note Report given to NOC RN, Tanya. Patient is currently sitting up in bed watching t.v. AOx4, patient shows no signs of distress at this time. Respirations even and unlabored. Safety precautions are in place.
[2019-12-26 21:59] VITALS: BP 142/79
[2019-12-27] MEDS: SODIUM CHLORIDE 0.9% 1,000 ML IV SCH ×2 (03:19→21:28)
[2019-12-27 05:00] VITALS: BP 159/84
[2019-12-27 06:27] LABS: Basophils # (auto) 0.1 10 ^3/uL (0-0.2); Lymphocytes # (auto) 1.7 10 ^3/uL (0.4-5.4); Monocytes # (auto) 1.8 10 ^3/uL (0-1.3); Neutrophils # (auto) 7.9 10 ^3/uL (1.6-8.6)
[2019-12-27 06:29] LABS: Basophils % (auto) 0.8 % (0.0-2.0); Eosinophils # (auto) 0.6 10 ^3/uL (0-0.8); Eosinophils % (auto) 5.2 % (0.0-7.0); Hematocrit 36.8 % (41.0-53.0); Hemoglobin 12.2 g/dL (13.5-17.5); Lymphocytes % (auto) 14.1 % (10.0-50.0); Mean Corpuscular Hgb Conc. 33.1 g/dL (32.0-36.0); Mean Corpuscular Volume 87.5 fL (80.0-100.0); Monocytes % (auto) 14.8 % (0.0-12.0); Neutrophils % (auto) 65.1 % (37.0-80.0); Nucleated Red Blood Cells % 0.2 %; Platelet Count (auto) 478 10^3/uL (140-450); Red Blood Cells 4.21 10^6/uL (4.5-5.90); Red Cell Distribution Width 13.8 % (11.8-14.3); White Blood Cell 12.1 10^3/uL (4.4-10.8)
[2019-12-27 06:48] LABS: Potassium 4.7 mmol/L (3.5-5.1)
[2019-12-27 06:57] LABS: BUN/Creatinine Ratio 24.2; Calcium 8.6 mg/dL (8.5-10.1)
--- NOTE | 2019-12-27 07:30 | NUR ---
Opening Shift Note Report received and assumed care of patient, awake,alert and oriented No S/S of distress/SOB,No c/o pain.Instructed on POC,disease process,nursing routines and turning q 2 hour, call light within reach patient reminded,instructed to call for assistance,patient verbalized understanding. will continue to monitor for changes Q1hr and PRN.
--- NOTE | 2019-12-27 07:45 | NUR ---
IV site accidentally pulled by patient,patient reassured will re start a new one,verbalized understanding.
--- NOTE | 2019-12-27 08:00 | NUR ---
IV G#20 re started to left wrist
[2019-12-27 09:01] VITALS: BP 152/78
[2019-12-27] MEDS: cefTRIAXone 1GM/50ML D5W 50 ML IV SCH (10:29)
[2019-12-27] MEDS: FINASTERIDE 5 MG TAB PO SCH (10:29)
[2019-12-27] MEDS: TAMSULOSIN HYDROCHLORIDE 0.4 MG CAP PO SCH (10:29)
[2019-12-27] MEDS ORDERED: DEXTROSE (50%) 50ML SYRG IV PRN (11:30)
[2019-12-27] MEDS ORDERED: amLODIPine BESYLATE 5 MG TAB PO ONE (11:30)
[2019-12-27] MEDS: InsuLIN REG 1unit/0.01ml Soln (100units/ml) SC SCH ×3 (12:08→21:28)
[2019-12-27] MEDS: ACCU-CHEK COMFORT CURVE STRIP VI SCH ×3 (12:08→21:28)
[2019-12-27 12:49] VITALS: BP 151/74
--- NOTE | 2019-12-27 16:00 | NUR ---
ASLEEP,RESTING QUIETLY NO DISTRESS
[2019-12-27 17:08] VITALS: BP 147/81
--- NOTE | 2019-12-27 19:23 | NUR ---
STATUS UNCHANGED,REPORT GIVEN TO INCOMING NOC SHIFT RN
--- NOTE | 2019-12-27 21:00 | NUR ---
REFUSED ACCU CHECK NOW. REQUESTED IF I COULD CHECK BLOOD SUGAR, INSTEAD IN THE AM. NOTED.
[2019-12-27 22:00] VITALS: BP 137/79
--- NOTE | 2019-12-27 23:00 | NUR ---
PATIENT ACCIDENTALLY PULLED OUT HIS IV WHILE GETTING OUT OF BED. STARTED A NEW IV ACCESS ON THE RIGHT HAND, GAUGE 22. BENIGN AND PATENT.
[2019-12-28 04:55] VITALS: BP 135/85
[2019-12-28] MEDS: ACCU-CHEK COMFORT CURVE STRIP VI SCH ×4 (05:35→21:45)
[2019-12-28] MEDS: InsuLIN REG 1unit/0.01ml Soln (100units/ml) SC SCH ×4 (05:35→21:45)
[2019-12-28 06:30] LABS: Potassium 4.6 mmol/L (3.5-5.1)
[2019-12-28 06:43] LABS: BUN/Creatinine Ratio 23.8; Calcium 8.8 mg/dL (8.5-10.1)
--- NOTE | 2019-12-28 07:35 | NUR ---
RECEIVED REPORT AND ASSUMED CARE OF PT. A/OX4. DENIED S/S ACUTE DISTRESS. UPDATE PT WITH POC. BED AT LOWEST POSITION.CALL LIGHT AND BELONGINGS WITHIN REACH. WILL CONT TO MONITOR
[2019-12-28 08:53] VITALS: BP 162/106
[2019-12-28] MEDS: TAMSULOSIN HYDROCHLORIDE 0.4 MG CAP PO SCH (09:43)
[2019-12-28] MEDS: FINASTERIDE 5 MG TAB PO SCH (09:43)
[2019-12-28] MEDS: cefTRIAXone 1GM/50ML D5W 50 ML IV SCH (09:44)
[2019-12-28] MEDS ORDERED: amLODIPine BESYLATE 5 MG TAB PO SCH (10:00)
[2019-12-28] MEDS ORDERED: hydrALAZINE HCL 20 MG/ML VL IV PRN (12:00)
[2019-12-28 12:57] VITALS: BP 138/87
[2019-12-28] MEDS ORDERED: levoFLOXacin 500MG 100 ML IV ONE (15:15)
[2019-12-28] MEDS: SODIUM CHLORIDE 0.9% 1,000 ML IV SCH (15:17)
[2019-12-28 17:00] VITALS: BP 126/90
--- NOTE | 2019-12-28 20:00 | NUR ---
Opening Shift Note Assumed care of patient, awake and alert. No S/S of distress/SOB or pain. Instructed on POC and to call for assist PRN. Bed in lowest locked position, call light within reach, side rails up x2, fall precautions in place. Will continue to monitor for changes Q1hr and PRN.
[2019-12-28 22:00] VITALS: BP 149/95
[2019-12-29 05:00] VITALS: BP 143/87
--- NOTE | 2019-12-29 06:00 | NUR ---
Rounds Patient refusing CHG wipes and linen change at this time. Patient stating he would like it to be done at a later time. Will endorse to day shift RN.
[2019-12-29 06:33] LABS: Basophils # (auto) 0.1 10 ^3/uL (0-0.2); Basophils % (auto) 0.8 % (0.0-2.0); Eosinophils # (auto) 0.6 10 ^3/uL (0-0.8); Eosinophils % (auto) 3.5 % (0.0-7.0); Hematocrit 38.8 % (41.0-53.0); Hemoglobin 12.8 g/dL (13.5-17.5); Lymphocytes # (auto) 2.2 10 ^3/uL (0.4-5.4); Lymphocytes % (auto) 12.3 % (10.0-50.0); Mean Corpuscular Hemoglobin 28.8 pg (28.0-32.0); Mean Corpuscular Hgb Conc. 32.8 g/dL (32.0-36.0); Mean Corpuscular Volume 87.8 fL (80.0-100.0); Monocytes % (auto) 11.7 % (0.0-12.0); Neutrophils # (auto) 12.6 10 ^3/uL (1.6-8.6); Neutrophils % (auto) 71.7 % (37.0-80.0); Nucleated Red Blood Cells % 0.1 %; Platelet Count (auto) 542 10^3/uL (140-450); Red Blood Cells 4.43 10^6/uL (4.5-5.90); White Blood Cell 17.6 10^3/uL (4.4-10.8)
[2019-12-29] MEDS: ACCU-CHEK COMFORT CURVE STRIP VI SCH ×4 (06:34→22:58)
[2019-12-29] MEDS: InsuLIN REG 1unit/0.01ml Soln (100units/ml) SC SCH ×4 (06:34→22:58)
[2019-12-29 06:40] LABS: INR 1.07 (0.9-1.15); Partial Thromboplastin Time 32.2 sec (23.64-32.05)
[2019-12-29 06:47] LABS: Potassium 4.5 mmol/L (3.5-5.1)
--- NOTE | 2019-12-29 07:50 | NUR ---
Opening Shift Note Assumed care of patient, asleep but easily aroused. No S/S of distress/SOB or pain. Instructed on POC and to call for assist PRN, will continue to monitor for changes Q1hr and PRN. NPO status maintained for procedure today.
[2019-12-29 09:00] VITALS: BP 141/86
[2019-12-29] MEDS: TAMSULOSIN HYDROCHLORIDE 0.4 MG CAP PO SCH (09:55)
[2019-12-29] MEDS: amLODIPine BESYLATE 5 MG TAB PO SCH (09:55)
[2019-12-29] MEDS: FINASTERIDE 5 MG TAB PO SCH (09:56)
[2019-12-29] MEDS ORDERED: levoFLOXacin 250MG 50 ML IV SCH (10:00)
--- NOTE | 2019-12-29 11:50 | NUR ---
Est energy needs 0955-3149 kcal (25-30 kcal/kg BW 65.7kg) Est protein needs 39-53g (0.6-0.8 g/kg BW 65.7kg r/t acute renal failure) Will reassess prn Addendum: 12/29/19 at [address] Amended: Links added.
[2019-12-29 13:00] VITALS: BP 129/77
[2019-12-29] MEDS ORDERED: PIPERACILLIN-TAZOB 3.375GM 100 ML IV ONE (13:45)
--- NOTE | 2019-12-29 15:45 | NUR ---
Off Unit Patient brought to PACU for procedure with Dr. Butler
[2019-12-29] MEDS ORDERED: MIDAZOLAM HCL 1MG/1ML-2 ML VIAL ONE (15:47)
[2019-12-29] MEDS ORDERED: fentaNYL CITRATE 100 MCG/2 ML VL ONE (15:47)
[2019-12-29] MEDS ORDERED: MEPERIDINE HCL (50 MG/ML) 1 ML VIAL ONE (15:47)
[2019-12-29] MEDS ORDERED: MORPHINE SULFATE 4 MG/ML SYR/VIAL IV PRN (16:00)
[2019-12-29] MEDS ORDERED: ONDANSETRON HCL 4 MG/2 ML VIAL IV PRN (16:00)
[2019-12-29] MEDS ORDERED: ePHEDrine SULFATE 50 MG/ML AMP IV PRN (16:00)
[2019-12-29] MEDS ORDERED: MIDAZOLAM HCL 1MG/1ML-2 ML VIAL IV PRN (16:00)
[2019-12-29] MEDS ORDERED: LABETALOL HCL 5 MG/ML 4ML SYRINGE IV PRN (16:00)
[2019-12-29] MEDS ORDERED: HYDROmorphone HCL 2 MG/ML VL IV PRN (16:00)
[2019-12-29] MEDS ORDERED: ACCU-CHEK COMFORT CURVE STRIP VI ONE (16:00)
[2019-12-29] MEDS ORDERED: PROPOFOL 10 MG/ML 20 ML IV ONE (16:24)
--- NOTE | 2019-12-29 18:10 | NUR ---
On Unit Patient brought back to unit from PACU after having TURP and stent removal done. Patient is awake but drowsy. No complaints of pain. Bed locked in lowest position, call light placed within reach and patient encouraged to call for assistance. Bed alarm on for safety. CBI in process, urine pale yellow with no sediments or signs of bleeding. Abdomen flat, soft and non-tender. Will continue to monitor.
[2019-12-29] MEDS: PIPERACILLIN-TAZOB 3.375GM 100 ML IV SCH ×2 (18:14→23:44)
[2019-12-29] MEDS: SODIUM CHLORIDE 0.9% 1,000 ML IV SCH (18:22)
--- NOTE | 2019-12-29 18:48 | NUR ---
CBI Urine 2300mls pale yellow urine emptied, no sediments or blood visible.
[2019-12-29 21:53] VITALS: BP 136/80
[2019-12-30 05:00] VITALS: BP 117/77
[2019-12-30 05:25] LABS: Basophils # (auto) 0 10 ^3/uL (0-0.2); Basophils % (auto) 0.1 % (0.0-2.0); Eosinophils # (auto) 0 10 ^3/uL (0-0.8); Hematocrit 37.8 % (41.0-53.0); Hemoglobin 12.3 g/dL (13.5-17.5); Lymphocytes # (auto) 0.9 10 ^3/uL (0.4-5.4); Lymphocytes % (auto) 4.6 % (10.0-50.0); Mean Corpuscular Hemoglobin 28.7 pg (28.0-32.0); Mean Corpuscular Hgb Conc. 32.6 g/dL (32.0-36.0); Mean Corpuscular Volume 87.9 fL (80.0-100.0); Monocytes # (auto) 0.2 10 ^3/uL (0-1.3); Monocytes % (auto) 1.2 % (0.0-12.0); Neutrophils # (auto) 18.1 10 ^3/uL (1.6-8.6); Neutrophils % (auto) 94.1 % (37.0-80.0); Platelet Count (auto) 550 10^3/uL (140-450); Red Cell Distribution Width 13.7 % (11.8-14.3); White Blood Cell 19.2 10^3/uL (4.4-10.8)
[2019-12-30 05:31] LABS: BUN/Creatinine Ratio 22.5; Calcium 8.8 mg/dL (8.5-10.1); Magnesium 1.8 mg/dL (1.6-2.6)
[2019-12-30] MEDS: PIPERACILLIN-TAZOB 3.375GM 100 ML IV SCH ×3 (05:39→18:07)
[2019-12-30] MEDS: ACCU-CHEK COMFORT CURVE STRIP VI SCH ×4 (06:40→22:26)
[2019-12-30] MEDS: InsuLIN REG 1unit/0.01ml Soln (100units/ml) SC SCH ×4 (06:59→22:30)
[2019-12-30 08:52] VITALS: BP 124/78
[2019-12-30] MEDS: TAMSULOSIN HYDROCHLORIDE 0.4 MG CAP PO SCH (10:04)
[2019-12-30] MEDS: FINASTERIDE 5 MG TAB PO SCH (10:04)
[2019-12-30] MEDS: amLODIPine BESYLATE 5 MG TAB PO SCH (10:05)
[2019-12-30] MEDS: SODIUM CHLORIDE 0.9% 1,000 ML IV SCH (10:06)
[2019-12-30] MEDS ORDERED: MAGNESIUM SULFATE 1GM/100ML 100 ML IV ONE (11:30)
[2019-12-30] MEDS: BELLADONNA ALKAL/OPIUM (16.2/30MG) RECT SUPP PR SCH (11:43)
[2019-12-30 12:54] VITALS: BP 144/95
[2019-12-30 17:00] VITALS: BP 133/76
--- NOTE | 2019-12-30 19:10 | NUR ---
Opening Shift Note Assumed care of patient. Patient is awake, alert, and oriented X 4. No S/S of respiratory distress, no pain. Respirations are regular and non-labored. Bed in lowest position, brakes locked, call light within reach, bed rail up x 2. CBI at bed side and is not functioning. IV is patent and asymptomatic. POC discussed with the patient. Patient instructed to call for assistance PRN. Will continue to monitor for changes Q1hr and PRN.
[2019-12-30 20:00] VITALS: BP 125/70
[2019-12-30 22:00] VITALS: BP 125/70
[2019-12-31] MEDS: PIPERACILLIN-TAZOB 3.375GM 100 ML IV SCH ×5 (00:14→23:43)
[2019-12-31] MEDS: SODIUM CHLORIDE 0.9% 1,000 ML IV SCH ×2 (01:55→18:18)
[2019-12-31 05:00] VITALS: BP 116/77
--- NOTE | 2019-12-31 05:45 | NUR ---
IV removal/insertion Patient pulled accidently his IV out. Catheter is fully intact. No bleeding from the insertion site. Pressure dressing applied and Co band wrapped around. Patient tolerated well. New IV access obtained via clean sterile technique by inserting 20 gauge catheter at left forearm after 1 attempt. IV secured properly. No trauma to site. Patient tolerated procedure well.
[2019-12-31] MEDS: ACCU-CHEK COMFORT CURVE STRIP VI SCH ×4 (06:37→22:06)
[2019-12-31] MEDS: InsuLIN REG 1unit/0.01ml Soln (100units/ml) SC SCH ×4 (06:37→22:06)
[2019-12-31 06:48] LABS: Basophils # (auto) 0.2 10 ^3/uL (0-0.2); Basophils % (auto) 0.6 % (0.0-2.0); Eosinophils # (auto) 0.1 10 ^3/uL (0-0.8); Eosinophils % (auto) 0.5 % (0.0-7.0); Hematocrit 39.7 % (41.0-53.0); Hemoglobin 12.6 g/dL (13.5-17.5); Lymphocytes # (auto) 3.6 10 ^3/uL (0.4-5.4); Lymphocytes % (auto) 13.3 % (10.0-50.0); Mean Corpuscular Hgb Conc. 31.7 g/dL (32.0-36.0); Mean Corpuscular Volume 88.2 fL (80.0-100.0); Monocytes # (auto) 2.1 10 ^3/uL (0-1.3); Monocytes % (auto) 7.8 % (0.0-12.0); Neutrophils # (auto) 21.1 10 ^3/uL (1.6-8.6); Neutrophils % (auto) 77.8 % (37.0-80.0); Nucleated Red Blood Cells % 0.1 %; Platelet Count (auto) 594 10^3/uL (140-450); Red Cell Distribution Width 14.1 % (11.8-14.3); White Blood Cell 27.1 10^3/uL (4.4-10.8)
[2019-12-31 07:08] LABS: Calcium 8.5 mg/dL (8.5-10.1); Magnesium 1.8 mg/dL (1.6-2.6); Potassium 4.4 mmol/L (3.5-5.1)
[2019-12-31 07:11] LABS: BUN/Creatinine Ratio 26.2
--- NOTE | 2019-12-31 07:30 | NUR ---
Opening Shift Note Assumed care of patient, awake and alert. No S/S of distress/SOB or pain. Instructed on POC and to call for assist PRN, will continue to monitor for changes Q1hr and PRN.
[2019-12-31 08:55] VITALS: BP 125/69
[2019-12-31] MEDS: amLODIPine BESYLATE 5 MG TAB PO SCH (09:47)
[2019-12-31] MEDS: TAMSULOSIN HYDROCHLORIDE 0.4 MG CAP PO SCH (09:47)
[2019-12-31] MEDS: FINASTERIDE 5 MG TAB PO SCH (09:47)
[2019-12-31] MEDS: BELLADONNA ALKAL/OPIUM (16.2/30MG) RECT SUPP PR SCH (09:52)
--- NOTE | 2019-12-31 12:10 | NUR ---
Dr. Duong in to see patient as hospitalist.
[2019-12-31 12:43] VITALS: BP 140/89
[2019-12-31 16:48] VITALS: BP 124/76
--- NOTE | 2019-12-31 19:20 | NUR ---
Opening Shift Note Received report from Annie KILPATRICK. Assumed care of patient, awake and alert. No S/S of distress/SOB or pain. Instructed on POC and to call for assist PRN, will continue to monitor for changes Q1hr and PRN.
[2019-12-31 22:00] VITALS: BP 113/72
[2020-01-01 05:00] VITALS: BP 106/65
[2020-01-01] MEDS: PIPERACILLIN-TAZOB 3.375GM 100 ML IV SCH ×2 (06:07→12:00)
[2020-01-01] MEDS: InsuLIN REG 1unit/0.01ml Soln (100units/ml) SC SCH ×2 (06:29→11:30)
[2020-01-01] MEDS: ACCU-CHEK COMFORT CURVE STRIP VI SCH ×2 (06:29→11:30)
[2020-01-01 06:52] LABS: Basophils # (auto) 0.1 10 ^3/uL (0-0.2); Basophils % (auto) 0.4 % (0.0-2.0); Eosinophils # (auto) 0.7 10 ^3/uL (0-0.8); Eosinophils % (auto) 3.8 % (0.0-7.0); Hematocrit 38.6 % (41.0-53.0); Hemoglobin 12.7 g/dL (13.5-17.5); Lymphocytes # (auto) 3.2 10 ^3/uL (0.4-5.4); Lymphocytes % (auto) 18.2 % (10.0-50.0); Mean Corpuscular Hemoglobin 28.7 pg (28.0-32.0); Mean Corpuscular Hgb Conc. 32.9 g/dL (32.0-36.0); Mean Corpuscular Volume 87.2 fL (80.0-100.0); Monocytes % (auto) 11.6 % (0.0-12.0); Neutrophils # (auto) 11.6 10 ^3/uL (1.6-8.6); Platelet Count (auto) 585 10^3/uL (140-450); Red Blood Cells 4.43 10^6/uL (4.5-5.90); Red Cell Distribution Width 13.8 % (11.8-14.3); White Blood Cell 17.6 10^3/uL (4.4-10.8)
[2020-01-01 07:13] LABS: Potassium 4.4 mmol/L (3.5-5.1)
[2020-01-01 07:23] LABS: INR 1.07 (0.9-1.15); Partial Thromboplastin Time 28.8 sec (23.64-32.05)
[2020-01-01 07:25] LABS: Albumin 2.5 g/dL (3.4-5.0); BUN/Creatinine Ratio 22.7; Calcium 8.6 mg/dL (8.5-10.1); Phosphorus 3.9 mg/dL (2.5-4.90)
[2020-01-01 07:27] LABS: Bilirubin, Total 0.4 mg/dL (0.2-1.0); Total Protein 7.7 g/dL (6.4-8.2)
--- NOTE | 2020-01-01 07:30 | NUR ---
Opening Shift Note Assumed care of patient, awake and alert. No S/S of distress/SOB or pain. Instructed on POC and to call for assist PRN, will continue to monitor for changes Q1hr and PRN. Viera catheter patent. Urine pale yellow some sediment noted.
[2020-01-01 09:00] VITALS: BP 117/83
[2020-01-01] MEDS: BELLADONNA ALKAL/OPIUM (16.2/30MG) RECT SUPP PR SCH (10:00)
[2020-01-01] MEDS: TAMSULOSIN HYDROCHLORIDE 0.4 MG CAP PO SCH (10:34)
[2020-01-01] MEDS: amLODIPine BESYLATE 5 MG TAB PO SCH (10:34)
[2020-01-01] MEDS: FINASTERIDE 5 MG TAB PO SCH (10:34)
[2020-01-01 12:38] VITALS: BP 123/70
--- NOTE | 2020-01-01 12:47 | NUR ---
Nutrition Followup Notes Pt wt is 62.9 kg Pt is with a Renal Standard diet, appetite is good aeb ave 88% x4 PO intake per RN doc. Pt with no noted distress per RN doc. Noted pt is not with HD. Please see recommendations noted below under Comments. Will continue to monitor PO status, skin status, pertinent labs and weight trends. Will f/u in 3-5 days. Est energy needs 1015-0372 kcal (25-30 kcal/kg BW 65.7kg) Est protein needs 39-53g (0.6-0.8 g/kg BW 65.7kg r/t acute renal failure) Will reassess prn LABS: Cl 110 H, BUN 42 H, Cr 1.85 H, GFR 39 L, Alb 2.5 L GI: Pt had 1 BM on 12/31 per RN doc BS: 19 low risk Please refer to wound assessment report for full details. PES: Altered nutrition related labs r/t current medical condition of ARF aeb pt with elevated RFTs Comments 1) Continue to monitor po intake, labs, skin 2) Suggest a Renal Specific 40gPro,2gNa,K2,lowphos diet 3) Refer pt to OPD on dc 3) Continue current plan of care
--- NOTE | 2020-01-01 13:37 | NUR ---
Dr. Sanchez in to see patient as hospitalist.
[2020-01-01] MEDS ORDERED: FIN5T PO (16:09)
[2020-01-01] MEDS ORDERED: DOCU100C8 PO (16:09)
[2020-01-01] MEDS ORDERED: GLIP5TAB12 PO (16:09)
[2020-01-01] MEDS ORDERED: CEPH-37 PO (16:09)
[2020-01-01] MEDS ORDERED: AML5T PO (16:09)
[2020-01-01] MEDS ORDERED: TAM04C PO (16:09)
[2020-01-01 16:28] VITALS: BP 123/70
[2020-01-01 16:50] VITALS: BP 118/70
--- NOTE | 2020-01-01 17:05 | NUR ---
Viera bag converted to leg bag. Patient education given re emptying of leg bag.
--- NOTE | 2020-01-01 17:45 | NUR ---
Discharge instructions given as ordered. Encourage to follow up with PMD as instructed. All questions and concerns addressed. Patient verbalized understanding. Medication reconciliation form completed and copy given to patient. IV removed with catheter intact, pressure dressing applied. T Patient taken to taxi via wheelchair with all personal belongings, accompanied by staff. No distress noted at time of departure.
== END 2020-01-01 17:45 | disposition home or self-care (01) | DRG 665 ==
LOC: ER 23:26 → OVERFLOW 23:27 → WEST WING 12-26 08:17
PROVIDERS: ADMIT Hospitalist; ATTEND Internal Medicine
PROC: 0VT08ZZ Resection of Prostate, Via Natural or Artificial Opening Endoscopic (ICD-10-PCS; principal; 2019-12-29 16:11)
PROC: 0TP97DZ Removal of Intraluminal Device from Ureter, Via Natural or Artificial Opening (ICD-10-PCS; 2019-12-29 16:11)
DX: T83.511A Infection and inflammatory reaction due to indwelling urethral catheter, initial encounter (principal); A41.01 Sepsis due to Methicillin susceptible Staphylococcus aureus; N17.9 Acute kidney failure, unspecified; N13.8 Other obstructive and reflux uropathy; N13.6 Pyonephrosis; N40.1 Benign prostatic hyperplasia with lower urinary tract symptoms; N18.3 Chronic kidney disease, stage 3 (moderate); R33.8 Other retention of urine; I12.9 Hypertensive chronic kidney disease with stage 1 through stage 4 chronic kidney disease, or unspecified chronic kidney disease; N32.0 Bladder-neck obstruction; N32.3 Diverticulum of bladder; R73.03 Prediabetes; R31.0 Gross hematuria; F15.90 Other stimulant use, unspecified, uncomplicated; B95.2 Enterococcus as the cause of diseases classified elsewhere; D63.8 Anemia in other chronic diseases classified elsewhere; Y84.6 Urinary catheterization as the cause of abnormal reaction of the patient, or of later complication, without mention of misadventure at the time of the procedure; Z90.79 Acquired absence of other genital organ(s); Z88.5 Allergy status to narcotic agent; Z91.19 Patient's noncompliance with other medical treatment and regimen; Z79.899 Other long term (current) drug therapy; Y92.89 Other specified places as the place of occurrence of the external cause
CPT/HCPCS: 36415; 71045; 74176; 80048; 80053; 80061; 80307; 81001; 82962; 83036; 83735; 84100; 85007; 85025; 85027; 85610; 85730; 87086; 87088; 87186; 96372; G0378; J0696; J1815; J1956; J2001; J2250; J2405; J2543; J2704; J7042

== ENCOUNTER 2020-02-01 09:47 | Emergency (ER) | payer MEDICARE ==
[~2020-02-01] VITALS: Ht 167.6 cm; Wt 61.2 kg
[~2020-02-01 09:47] MED LIST: AML5T PO; CEPH-37 PO; DOCU100C8 PO; FIN5T PO; GLIP5TAB12 PO; TAM04C PO
[2020-02-01 11:27] VITALS: BP 122/80
[2020-02-01 12:12] LABS: Basophils # (auto) 0.1 10 ^3/uL (0-0.2); Basophils % (auto) 1.1 % (0.0-2.0); Eosinophils # (auto) 0.6 10 ^3/uL (0-0.8); Hematocrit 39.2 % (41.0-53.0); Hemoglobin 12.5 g/dL (13.5-17.5); Lymphocytes # (auto) 2.9 10 ^3/uL (0.4-5.4); Lymphocytes % (auto) 28.2 % (10.0-50.0); Mean Corpuscular Hemoglobin 27.6 pg (28.0-32.0); Mean Corpuscular Hgb Conc. 31.8 g/dL (32.0-36.0); Mean Corpuscular Volume 86.8 fL (80.0-100.0); Monocytes # (auto) 1.1 10 ^3/uL (0-1.3); Monocytes % (auto) 11.1 % (0.0-12.0); Neutrophils # (auto) 5.5 10 ^3/uL (1.6-8.6); Neutrophils % (auto) 53.6 % (37.0-80.0); Red Blood Cells 4.52 10^6/uL (4.5-5.90); Red Cell Distribution Width 14.7 % (11.8-14.3); White Blood Cell 10.3 10^3/uL (4.4-10.8)
[2020-02-01 12:24] LABS: Urine Blood 2+ /uL (Negative); Urine Budding Yeast OCCASIONAL /hpf (None Seen); Urine Specific Gravity 1.019 (1.001-1.035); Urine WBC 1552 /hpf (0 - 3); Urine WBC Clumps PRESENT /hpf (None Seen)
[2020-02-01 12:24] LABS: Calcium 8.6 mg/dL (8.5-10.1); Potassium 3.9 mmol/L (3.5-5.1)
[2020-02-01 12:25] LABS: Urine Bacteria MODERATE /hpf (None Seen)
[2020-02-01 12:28] LABS: BUN/Creatinine Ratio 11.6; Bilirubin, Total 0.3 mg/dL (0.2-1.0); Total Protein 7.9 g/dL (6.4-8.2)
[2020-02-01 12:41] LABS: Platelet Count (auto) 538 10^3/uL (140-450)
[2020-02-01] MEDS ORDERED: cefTRIAXone SOD 1,000 MG VL IM ONE (15:30)
== END 2020-02-01 16:07 | disposition home or self-care (01) ==
LOC: ER 09:47
DX: N39.0 Urinary tract infection, site not specified (principal); F17.210 Nicotine dependence, cigarettes, uncomplicated; I10 Essential (primary) hypertension; Z88.6 Allergy status to analgesic agent; Z46.6 Encounter for fitting and adjustment of urinary device; Z76.0 Encounter for issue of repeat prescription
CPT/HCPCS: 36415; 80053; 81001; 85025; 96372; 99283; J0696

== ENCOUNTER 2020-02-28 11:55 | Emergency (ER) | payer MEDICARE ==
[~2020-02-28] VITALS: Ht 167.6 cm; Wt 65.8 kg
[2020-02-28 15:34] VITALS: BP 126/84
[2020-02-28] MEDS ORDERED: LIDOCAINE 2% JELLY 11ml (GLYDO) ONE (16:01)
[2020-02-28 17:35] LABS: Urine Bacteria MANY /hpf (None Seen); Urine Blood 3+ /uL (Negative); Urine WBC 3913 /hpf (0 - 3); Urine WBC Clumps PRESENT /hpf (None Seen)
[2020-02-28] MEDS ORDERED: cefTRIAXone SOD 1,000 MG VL IM ONE (18:00)
[2020-02-28 18:12] LABS: Urine Specific Gravity 1.015 (1.001-1.035)
== END 2020-02-28 17:19 | disposition home or self-care (01) ==
LOC: ER 11:55
DX: T83.511D Infection and inflammatory reaction due to indwelling urethral catheter, subsequent encounter (principal); N39.0 Urinary tract infection, site not specified
CPT/HCPCS: 81001; 87086; 96372; 99283; J0696

== ENCOUNTER 2023-01-11 10:56 | Emergency (ER) | payer BC, MEDICARE ==
[~2023-01-11] VITALS: Ht 167.6 cm; Wt 59.0 kg
[~2023-01-11 10:56] MED LIST changes: +DOCU-265 PO; -DOCU100C8 PO; -TAM04C PO; +TAMS-35 PO
[2023-01-11 11:50] LABS: Basophils # (auto) 0.1 10 ^3/uL (0-0.2); Basophils % (auto) 0.6 % (0.0-2.0); Eosinophils # (auto) 0 10 ^3/uL (0-0.8); Eosinophils % (auto) 0.3 % (0.0-7.0); Hematocrit 51.5 % (41.0-53.0); Hemoglobin 17.1 g/dL (13.5-17.5); Lymphocytes # (auto) 2.5 10 ^3/uL (0.4-5.4); Lymphocytes % (auto) 24.9 % (10.0-50.0); Mean Corpuscular Hemoglobin 29.3 pg (28.0-32.0); Mean Corpuscular Hgb Conc. 33.2 g/dL (32.0-36.0); Mean Corpuscular Volume 88.2 fL (80.0-100.0); Monocytes # (auto) 1.8 10 ^3/uL (0-1.3); Monocytes % (auto) 17.9 % (0.0-12.0); Neutrophils # (auto) 5.6 10 ^3/uL (1.6-8.6); Neutrophils % (auto) 56.3 % (37.0-80.0); Nucleated Red Blood Cells % 0.3 %; Red Blood Cells 5.84 10^6/uL (4.5-5.90); Red Cell Distribution Width 14.5 % (11.8-14.3)
[2023-01-11 12:01] LABS: Calcium 8.6 mg/dL (8.5-10.1); Potassium 3.8 mmol/L (3.5-5.1)
[2023-01-11 12:11] LABS: Bilirubin, Total 0.3 mg/dL (0.2-1.0); Total Protein 8.4 g/dL (6.4-8.2)
[2023-01-11] MEDS ORDERED: ONDANSETRON HCL 4 MG/2 ML VIAL IV ONE (16:00)
[2023-01-11] MEDS ORDERED: SODIUM CHLORIDE 0.9% 1,000 ML IV ONE (16:00)
[2023-01-11 19:02] LABS: Urine Bacteria NONE SEEN /hpf (None Seen); Urine Blood 2+ /uL (Negative); Urine WBC 3193 /hpf (0 - 3); Urine WBC Clumps PRESENT /hpf (None Seen)
[2023-01-11 19:05] LABS: Urine Specific Gravity 1.018 (1.001-1.035)
[2023-01-11] MEDS ORDERED: ZOFR4T PO (19:27)
[2023-01-11] MEDS ORDERED: BACDST PO (19:29)
[2023-01-11] MEDS ORDERED: cefTRIAXone 1GM/50ML D5W 50 ML IV ONE (19:30)
[2023-01-11 20:00] VITALS: BP 120/73
== END 2023-01-11 20:23 | disposition home or self-care (01) ==
LOC: EDBD 10:56 → ER 10:56
DX: N32.0 Bladder-neck obstruction (principal); N13.30 Unspecified hydronephrosis; N32.3 Diverticulum of bladder; N30.00 Acute cystitis without hematuria; E11.22 Type 2 diabetes mellitus with diabetic chronic kidney disease; I12.9 Hypertensive chronic kidney disease with stage 1 through stage 4 chronic kidney disease, or unspecified chronic kidney disease; N18.9 Chronic kidney disease, unspecified; F17.210 Nicotine dependence, cigarettes, uncomplicated; F12.10 Cannabis abuse, uncomplicated; F15.10 Other stimulant abuse, uncomplicated; Z88.6 Allergy status to analgesic agent
CPT/HCPCS: 36415; 74176; 80053; 81001; 82962; 83605; 83690; 85025; 93005; 96361; 96365; 96375; 99285; J0696; J2405; J7030

== ENCOUNTER 2023-10-20 16:13 | Inpatient (IN) | payer BC, MEDICAID ==
[~2023-10-20] VITALS: Ht 172.7 cm; Wt 63.2 kg
[~2023-10-20 16:13] MED LIST changes: +BACDST PO; -GLIP5TAB12 PO; +GLIP5TAB21 PO; +ZOFR4T PO
[2023-10-20 19:56] LABS: Basophils # (auto) 0.1 10 ^3/uL (0-0.2); Basophils % (auto) 0.6 % (0.0-2.0); Eosinophils # (auto) 0.3 10 ^3/uL (0-0.8); Eosinophils % (auto) 1.7 % (0.0-7.0); Hemoglobin 15.7 g/dL (13.5-17.5); Lymphocytes # (auto) 1.8 10 ^3/uL (0.4-5.4); Mean Corpuscular Hemoglobin 29.2 pg (28.0-32.0); Mean Corpuscular Hgb Conc. 33.3 g/dL (32.0-36.0); Mean Corpuscular Volume 87.5 fL (80.0-100.0); Monocytes # (auto) 1.4 10 ^3/uL (0-1.3); Neutrophils # (auto) 12.5 10 ^3/uL (1.6-8.6); Neutrophils % (auto) 77.7 % (37.0-80.0); Nucleated Red Blood Cells % 0.2 %; Red Blood Cells 5.37 10^6/uL (4.5-5.90); Red Cell Distribution Width 14.1 % (11.8-14.3); White Blood Cell 16.1 10^3/uL (4.4-10.8)
[2023-10-20 20:13] LABS: Alanine Aminotransferase 18 U/L (7-40); Albumin 3.9 g/dL (3.2-4.8); Alkaline Phosphatase 77 U/L (46-116); Anion Gap 4 (5-15); Aspartate Aminotransferase 11 U/L (13-40); BUN/Creatinine Ratio 15.5 (10.0-20.0); Bilirubin, Total 0.3 mg/dL (0.2-1.0); Blood Urea Nitrogen 28 mg/dL (9-23); Calcium 11.3 mg/dL (8.7-10.4); Carbon Dioxide 30 mmol/L (20-30); Chloride 100 mmol/L (98-107); Glucose 150 mg/dL (74-106); Lipase 46 U/L (12-53); Potassium 4.4 mmol/L (3.5-5.1); Sodium 134 mmol/L (136-145); Total Protein 7.5 g/dL (5.7-8.2)
[2023-10-20 20:26] LABS: Urine Bacteria None Seen /hpf (None Seen)
[2023-10-20 20:34] LABS: Urine Amorphous Crystal FEW /hpf (None Seen); Urine Blood Negative /uL (Negative); Urine Clarity Clear (Clear); Urine Color Yellow (Yellow); Urine Protein, UAD 2+ (Negative); Urine Urobilinogen Normal (Negative); Urine WBC 23 /hpf (0 - 3); Urine pH 5.5 (5.0-9.0)
[2023-10-20] MEDS ORDERED: DEXTROSE (50%) 50ML SYRG IV PRN (22:30)
[2023-10-20] MEDS ORDERED: ACETAMINOPHEN 325 MG TAB PO PRN (22:30)
[2023-10-20] MEDS ORDERED: NITROGLYCERIN 0.4 MG SL TAB SL PRN (22:30)
[2023-10-20] MEDS ORDERED: ONDANSETRON HCL 4 MG/2 ML VIAL IV PRN (22:30)
[2023-10-20] MEDS ORDERED: HYDROcodone-ACET 5/325MG TAB PO PRN (22:30)
[2023-10-20] MEDS ORDERED: MORPHINE SULFATE INJ 2 MG/ml SYRG IV PRN (22:30)
[2023-10-20] MEDS: ONDANSETRON HCL 4 MG/2 ML VIAL IV ONE (23:07)
[2023-10-20] MEDS: FUROSEMIDE 40 MG/4 ML VIAL IV ONE (23:07)
[2023-10-20] MEDS: SODIUM CHLORIDE 0.9% 1,000 ML IV ONE (23:07)
[2023-10-20] MEDS: cefTRIAXone 1GM/50ML D5W 50 ML IV ONE (23:08)
[2023-10-21 01:09] LABS: INR 1.02 (0.9-1.15); Partial Thromboplastin Time 30.5 SEC (24.5-34.5); Prothrombin Time 10.7 sec (9.3-11.8)
[2023-10-21] MEDS ORDERED: hydrALAZINE HCL 20 MG/ML VL IV PRN (03:30)
[2023-10-21 05:32] LABS: Basophils # (auto) 0.1 10 ^3/uL (0-0.2); Basophils % (auto) 0.5 % (0.0-2.0); Eosinophils # (auto) 0.2 10 ^3/uL (0-0.8); Eosinophils % (auto) 1.3 % (0.0-7.0); Hematocrit 45.4 % (41.0-53.0); Hemoglobin 15.1 g/dL (13.5-17.5); Lymphocytes # (auto) 2.1 10 ^3/uL (0.4-5.4); Lymphocytes % (auto) 10.8 % (10.0-50.0); Mean Corpuscular Hemoglobin 29.1 pg (28.0-32.0); Mean Corpuscular Hgb Conc. 33.2 g/dL (32.0-36.0); Mean Corpuscular Volume 87.7 fL (80.0-100.0); Monocytes # (auto) 1.7 10 ^3/uL (0-1.3); Neutrophils % (auto) 78.4 % (37.0-80.0); Red Blood Cells 5.18 10^6/uL (4.5-5.90); Red Cell Distribution Width 14.7 % (11.8-14.3); White Blood Cell 19.2 10^3/uL (4.4-10.8)
[2023-10-21 05:42] LABS: Chloride 103 mmol/L (98-107); Potassium 4.4 mmol/L (3.5-5.1); Sodium 133 mmol/L (136-145)
[2023-10-21 05:43] LABS: Anion Gap 5 (5-15); Calcium 9.8 mg/dL (8.7-10.4); Carbon Dioxide 25 mmol/L (20-30)
[2023-10-21 05:48] LABS: BUN/Creatinine Ratio 15.6 (10.0-20.0); Blood Urea Nitrogen 26 mg/dL (9-23); Glucose 133 mg/dL (74-106)
[2023-10-21] MEDS: ACCU-CHEK COMFORT CURVE STRIP VI SCH (06:45)
[2023-10-21] MEDS: InsuLIN REG 1unit/0.01ml Soln (100units/ml) SC SCH (06:54)
[2023-10-21 07:55] VITALS: PULSE 117; RESP 22; O2SAT 96
[2023-10-21 10:00] VITALS: PULSE 109; RESP 18; O2SAT 95
[2023-10-21] MEDS: AZITHROMYCIN 500MG/ 250ML 250 ML IV SCH (10:51)
[2023-10-21 13:00] VITALS: BP 129/75; PULSE 106; RESP 19; TEMP 98.4; O2SAT 96
[2023-10-21 17:00] VITALS: BP 115/86; PULSE 112; RESP 20; TEMP 99.9; O2SAT 98
[2023-10-21 20:00] VITALS: PULSE 127; PULSE 89; RESP 17; O2SAT 98
[2023-10-21] MEDS: methylPREDNISolone SOD SUCC 40 MG/ML VL IV SCH (21:20)
[2023-10-21] MEDS: cefTRIAXone 1GM/50ML D5W 50 ML IV SCH (21:25)
[2023-10-21 22:00] VITALS: BP 129/83; PULSE 89; RESP 19; TEMP 98.6; O2SAT 98
[2023-10-22 01:00] VITALS: BP 126/82; PULSE 43; RESP 20; TEMP 98.5; O2SAT 93
[2023-10-22 05:00] VITALS: BP 117/80; PULSE 63; RESP 18; TEMP 98.6; O2SAT 92
[2023-10-22 05:39] LABS: Hematocrit 47.7 % (41.0-53.0); Hemoglobin 15.7 g/dL (13.5-17.5); Mean Corpuscular Hemoglobin 28.9 pg (28.0-32.0); Mean Corpuscular Volume 87.8 fL (80.0-100.0); Red Blood Cells 5.43 10^6/uL (4.5-5.90); Red Cell Distribution Width 14.1 % (11.8-14.3); White Blood Cell 19.8 10^3/uL (4.4-10.8)
[2023-10-22 05:42] LABS: Chloride 102 mmol/L (98-107); Potassium 4.6 mmol/L (3.5-5.1); Sodium 134 mmol/L (136-145)
[2023-10-22 05:43] LABS: Anion Gap 9 (5-15); Calcium 9.7 mg/dL (8.7-10.4); Carbon Dioxide 23 mmol/L (20-30)
[2023-10-22 05:48] LABS: BUN/Creatinine Ratio 19.8 (10.0-20.0); Blood Urea Nitrogen 33 mg/dL (9-23); Glucose 204 mg/dL (74-106)
[2023-10-22 05:54] LABS: Basophils % (manual) 0 (0.0-2.0); Blast Cells 0; Eosinophils % (manual) 0 (0-7); Metamyelocytes % 0; Myelocytes % 0; Promyelocytes % 0; Reactive Lymphocytes 0
[2023-10-22 06:44] LABS: Band Neutrophils % (manual) 2; Lymphocytes % (manual) 6 (10.0-50.0); Monocytes % (manual) 2 (0-12); Platelet Estimate Increased
[2023-10-22 08:00] VITALS: PULSE 89; PULSE 97; RESP 18; O2SAT 96
[2023-10-22 09:00] VITALS: BP 125/84; PULSE 66; RESP 18; TEMP 98; O2SAT 100
[2023-10-22] MEDS: NICOTINE 14 MG/24HR TOPICAL PATCH TD SCH (09:47)
[2023-10-22] MEDS: DOCUSATE SOD 100 MG CAP PO PRN (11:58)
[2023-10-22 13:00] VITALS: BP 126/87; PULSE 98; RESP 16; TEMP 98.2; O2SAT 91
[2023-10-22 16:30] VITALS: BP 139/74; PULSE 106; RESP 17; TEMP 98.1; O2SAT 90
== END 2023-10-22 17:54 | disposition home or self-care (01) | DRG 177 ==
LOC: ER 16:13 → TELE 22:33 → TELE-WESTW 10-21 09:53
PROVIDERS: ADMIT Nurse Practitioner Family; ATTEND Nurse Practitioner Family
DX: J15.69 Pneumonia due to other Gram-negative bacteria (principal); J96.01 Acute respiratory failure with hypoxia; N17.0 Acute kidney failure with tubular necrosis; J90 Pleural effusion, not elsewhere classified; J44.1 Chronic obstructive pulmonary disease with (acute) exacerbation; N39.0 Urinary tract infection, site not specified; J44.0 Chronic obstructive pulmonary disease with (acute) lower respiratory infection; J15.9 Unspecified bacterial pneumonia; E11.9 Type 2 diabetes mellitus without complications; E27.8 Other specified disorders of adrenal gland; F17.210 Nicotine dependence, cigarettes, uncomplicated; I10 Essential (primary) hypertension; N26.1 Atrophy of kidney (terminal); N28.89 Other specified disorders of kidney and ureter; N40.0 Benign prostatic hyperplasia without lower urinary tract symptoms; F15.90 Other stimulant use, unspecified, uncomplicated; Z79.4 Long term (current) use of insulin; Z82.5 Family history of asthma and other chronic lower respiratory diseases
CPT/HCPCS: 36415; 71045; 74176; 76604; 80048; 80053; 81001; 82962; 83605; 83690; 84484; 85007; 85025; 85027; 85610; 85730; 87040; G0378; J1815; J2405

== ENCOUNTER 2024-01-07 08:40 | Inpatient (IN) | payer BC, MEDICAID ==
[~2024-01-07] VITALS: Ht 167.6 cm; Wt 77.8 kg
[2024-01-07] MEDS: SODIUM CHLORIDE 0.9% 1,000 ML IV ONE ×2 (09:06)
[2024-01-07 09:13] LABS: Eosinophils # (auto) 0 10 ^3/uL (0-0.8); Eosinophils % (auto) 0.1 % (0.0-7.0); Hemoglobin 18.2 g/dL (13.5-17.5); Lymphocytes # (auto) 1.6 10 ^3/uL (0.4-5.4)
[2024-01-07] MEDS: ONDANSETRON HCL 4 MG/2 ML VIAL IV ONE (09:13)
[2024-01-07 09:16] LABS: Basophils # (auto) 0.1 10 ^3/uL (0-0.2); Basophils % (auto) 0.3 % (0.0-2.0); Hematocrit 53.6 % (41.0-53.0); Lymphocytes % (auto) 8.8 % (10.0-50.0); Mean Corpuscular Hemoglobin 29.6 pg (28.0-32.0); Mean Corpuscular Hgb Conc. 33.9 g/dL (32.0-36.0); Mean Corpuscular Volume 87.2 fL (80.0-100.0); Monocytes # (auto) 1.4 10 ^3/uL (0-1.3); Monocytes % (auto) 7.6 % (0.0-12.0); Neutrophils # (auto) 15.1 10 ^3/uL (1.6-8.6); Neutrophils % (auto) 83.2 % (37.0-80.0); Nucleated Red Blood Cells % 0.1 %; Red Blood Cells 6.15 10^6/uL (4.5-5.90); Red Cell Distribution Width 15.4 % (11.8-14.3); White Blood Cell 18.2 10^3/uL (4.4-10.8)
[2024-01-07 09:23] LABS: Chloride 104 mmol/L (98-107); Potassium 3.9 mmol/L (3.5-5.1); Sodium 134 mmol/L (136-145)
[2024-01-07 09:24] LABS: Anion Gap 9 (5-15); Calcium 9.4 mg/dL (8.5-10.1); Carbon Dioxide 21 mmol/L (20-30)
[2024-01-07 09:29] LABS: BUN/Creatinine Ratio 23.5 (10.0-20.0); Blood Urea Nitrogen 32 mg/dL (9-23); Glucose 192 mg/dL (74-106)
[2024-01-07 09:50] VITALS: PULSE 79; RESP 16; O2SAT 95
[2024-01-07 11:10] LABS: Urine Bacteria None Seen /hpf (None Seen)
[2024-01-07 11:26] LABS: Urine Blood 1+ /uL (Negative); Urine Clarity Clear (Clear); Urine Color Yellow (Yellow); Urine Mucus FEW (None Seen); Urine Protein, UAD 3+ (Negative); Urine Urobilinogen Normal (Negative); Urine WBC 15 /hpf (0 - 3)
[2024-01-07 11:39] LABS: Amphetamine Screen, Urine Pos (NEGATIVE); Barbiturate Scree,Urine Neg (NEGATIVE); Benzodiazephine Screen, Urine Neg (NEGATIVE)
[2024-01-07 11:40] LABS: Cannabinoid Screen, Urine Pos (NEGATIVE); Cocaine Screen, Urine Neg (NEGATIVE); Opiate Scree,Urine Neg (NEGATIVE); Phencyclidine Screen, Urine Neg (NEGATIVE)
[2024-01-07] MEDS: cloNIDine HCL 0.1 MG TAB PO ONE (11:45)
[2024-01-07] MEDS ORDERED: VANCOMYCIN PER PHARMACY 0 MG IV SCH (11:45)
[2024-01-07] MEDS ORDERED: SODIUM CHLORIDE 0.9% 1,000 ML IV SCH (12:00)
[2024-01-07] MEDS: SODIUM CHLORIDE 0.9% 1,900 ML IV ONE (12:20)
[2024-01-07] MEDS: cefTRIAXone 1GM/50ML D5W 50 ML IV ONE (12:20)
[2024-01-07 12:55] LABS: Alanine Aminotransferase 22 U/L (7-40); Albumin 4.2 g/dL (3.2-4.8); Alkaline Phosphatase 101 U/L (46-116); Aspartate Aminotransferase 19 U/L (13-40); Bilirubin, Direct 0.2 mg/dL (<0.3); Blood Alcohol < 3.0 mg/dL (<10); Cholesterol 132 mg/dL (< 200); HDL Cholesterol 54 mg/dL (40-59); LDL Cholesterol 64 mg/dL (< 100); Triglycerides 73 mg/dL (< 150)
[2024-01-07 12:56] LABS: Bilirubin, Total 0.5 mg/dL (0.2-1.0); Total Protein 7.6 g/dL (5.7-8.2)
[2024-01-07 13:51] LABS: Lipase 34 U/L (12-53)
[2024-01-07] MEDS ORDERED: ONDANSETRON HCL 4 MG/2 ML VIAL IV PRN (15:45)
[2024-01-07] MEDS ORDERED: DEXTROSE (50%) 50ML SYRG IV PRN (15:45)
[2024-01-07] MEDS ORDERED: ACETAMINOPHEN 325 MG TAB PO PRN (15:45)
[2024-01-07] MEDS ORDERED: MORPHINE SULFATE INJ 2 MG/ml SYRG IV PRN (15:45)
[2024-01-07] MEDS ORDERED: NITROGLYCERIN 0.4 MG SL TAB SL PRN (15:45)
[2024-01-07] MEDS ORDERED: METOPROLOL TARTRATE 1MG/1ML-5ML VIAL IV PRN (16:00)
[2024-01-07] MEDS: VANCOMYCIN 1GM/200ML 200 ML IV ONE (16:31)
[2024-01-07] MEDS: IOHEXOL 300 MG/ML 100ML BOTTLE IJ ONE (16:40)
[2024-01-07] MEDS: ACCU-CHEK COMFORT CURVE STRIP VI SCH (17:00)
[2024-01-07] MEDS: InsuLIN REG 1unit/0.01ml Soln (100units/ml) SC SCH (17:00)
[2024-01-07 18:47] VITALS: BP 169/100; PULSE 92; RESP 16; TEMP 97.9; O2SAT 93
[2024-01-07] MEDS: SODIUM CHLORIDE 0.9% 1,000 ML IV SCH (18:57)
[2024-01-07 20:00] VITALS: PULSE 101; PULSE 89; RESP 18; O2SAT 98
[2024-01-07] MEDS: metroNIDAZOLE 500MG/100ML 100 ML IV ONE (20:29)
[2024-01-07] MEDS ORDERED: hydrALAZINE HCL 20 MG/ML VL IV PRN (20:30)
[2024-01-07 21:00] VITALS: BP 148/87; PULSE 101; RESP 18; TEMP 98.4; O2SAT 100
[2024-01-07] MEDS: PANTOPRAZOLE 40 MG/10 ML VIAL INJ IV SCH (21:43)
[2024-01-07] MEDS: LISINOPRIL 20 MG TAB PO SCH (21:43)
[2024-01-07] MEDS: METOPROLOL TARTRATE 25 MG TAB PO SCH (21:46)
[2024-01-08] VITALS (7 sets, daily range): BP systolic 99–136; BP diastolic 55–68; PULSE 51–87; RESP 14–19; TEMP 98–98.9; O2SAT 93–99
[2024-01-08] MEDS: metroNIDAZOLE 500MG/100ML 100 ML IV SCH (05:07)
[2024-01-08 07:42] LABS: Basophils # (auto) 0.1 10 ^3/uL (0-0.2); Basophils % (auto) 0.4 % (0.0-2.0); Eosinophils # (auto) 0.1 10 ^3/uL (0-0.8); Eosinophils % (auto) 0.5 % (0.0-7.0); Hematocrit 47.3 % (41.0-53.0); Hemoglobin 15.8 g/dL (13.5-17.5); Lymphocytes # (auto) 3.3 10 ^3/uL (0.4-5.4); Lymphocytes % (auto) 22.1 % (10.0-50.0); Mean Corpuscular Hemoglobin 29.5 pg (28.0-32.0); Mean Corpuscular Hgb Conc. 33.5 g/dL (32.0-36.0); Mean Corpuscular Volume 88.1 fL (80.0-100.0); Monocytes # (auto) 1.6 10 ^3/uL (0-1.3); Monocytes % (auto) 10.7 % (0.0-12.0); Neutrophils % (auto) 66.3 % (37.0-80.0); Nucleated Red Blood Cells % 0.1 %; Red Blood Cells 5.36 10^6/uL (4.5-5.90); Red Cell Distribution Width 15.3 % (11.8-14.3)
[2024-01-08 07:49] LABS: Anion Gap 6 (5-15); Carbon Dioxide 22 mmol/L (20-30); Chloride 110 mmol/L (98-107); Potassium 4.3 mmol/L (3.5-5.1); Sodium 138 mmol/L (136-145)
[2024-01-08 07:50] LABS: Calcium 8.7 mg/dL (8.7-10.4)
[2024-01-08 07:55] LABS: BUN/Creatinine Ratio 18.8 (10.0-20.0); Blood Urea Nitrogen 25 mg/dL (9-23); Glucose 100 mg/dL (74-106)
[2024-01-08] MEDS: cefTRIAXone 1GM/50ML D5W 50 ML IV SCH (08:46)
[2024-01-09] VITALS (7 sets, daily range): BP systolic 124–142; BP diastolic 55–77; PULSE 53–79; RESP 14–17; TEMP 97.8–98.7; O2SAT 93–97
[2024-01-09 05:45] LABS: Basophils # (auto) 0.1 10 ^3/uL (0-0.2); Eosinophils # (auto) 0.2 10 ^3/uL (0-0.8); Eosinophils % (auto) 1.8 % (0.0-7.0); Hematocrit 41.9 % (41.0-53.0); Hemoglobin 13.9 g/dL (13.5-17.5); Lymphocytes # (auto) 4.5 10 ^3/uL (0.4-5.4); Lymphocytes % (auto) 34.4 % (10.0-50.0); Mean Corpuscular Hemoglobin 29.4 pg (28.0-32.0); Mean Corpuscular Hgb Conc. 33.2 g/dL (32.0-36.0); Mean Corpuscular Volume 88.4 fL (80.0-100.0); Monocytes # (auto) 1.4 10 ^3/uL (0-1.3); Monocytes % (auto) 11.1 % (0.0-12.0); Neutrophils # (auto) 6.7 10 ^3/uL (1.6-8.6); Neutrophils % (auto) 51.7 % (37.0-80.0); Nucleated Red Blood Cells % 0.2 %; Red Blood Cells 4.74 10^6/uL (4.5-5.90); Red Cell Distribution Width 15.2 % (11.8-14.3)
[2024-01-09 05:48] LABS: Anion Gap 6 (5-15); Calcium 8.8 mg/dL (8.5-10.1); Carbon Dioxide 23 mmol/L (20-30); Chloride 109 mmol/L (98-107); Potassium 4.4 mmol/L (3.5-5.1); Sodium 138 mmol/L (136-145)
[2024-01-09 05:54] LABS: BUN/Creatinine Ratio 21.9 (10.0-20.0); Blood Urea Nitrogen 32 mg/dL (9-23); Glucose 106 mg/dL (74-106)
[2024-01-09] MEDS ORDERED: METO25TA5 PO (15:24)
[2024-01-09] MEDS ORDERED: METR-344 PO (15:24)
[2024-01-09] MEDS ORDERED: LISI10TA34 PO (15:24)
== END 2024-01-09 16:46 | disposition home or self-care (01) | DRG 392 ==
LOC: ER 08:46 → TELE-WESTW 15:36 → TELE 15:36 → WEST WING 18:00 → TELE-WESTW 01-08 02:32 → WEST WING 01-08 12:45
PROVIDERS: ADMIT Hospitalist; ATTEND Internal Medicine
DX: K52.9 Noninfective gastroenteritis and colitis, unspecified (principal); I42.9 Cardiomyopathy, unspecified; E11.65 Type 2 diabetes mellitus with hyperglycemia; F15.10 Other stimulant abuse, uncomplicated; I10 Essential (primary) hypertension; F12.10 Cannabis abuse, uncomplicated; Z87.891 Personal history of nicotine dependence; Z88.5 Allergy status to narcotic agent; Z79.899 Other long term (current) drug therapy
CPT/HCPCS: 36415; 71045; 74177; 80048; 80061; 80076; 80307; 80320; 81001; 82962; 83036; 83605; 83690; 85025; 87040; 93306; 96361; 96365; 96367; 96375; C9113; G0378; J1815; J2405; J3490

== ENCOUNTER 2024-07-04 13:50 | Inpatient (IN) | payer BC, MEDICAID ==
[2024-07-04] VITALS (8 sets, daily range): BP systolic 110; BP diastolic 66; PULSE 115–122; RESP 18–28; TEMP 98.1; O2SAT 90–96
[~2024-07-04] VITALS: Ht 167.6 cm; Wt 96.0 kg
[~2024-07-04 13:50] MED LIST changes: -AML5T PO; -BACDST PO; -CEPH-37 PO; -DOCU-265 PO; -FIN5T PO; -GLIP5TAB21 PO; +LISI10TA34 PO; +METO25TA5 PO; +METR-344 PO; -TAMS-35 PO; -ZOFR4T PO
--- NOTE | 2024-07-04 14:20 | ED.PDOC ---
SOB-HPI HPI Comments 69 year old male GAGE presents to the ED with chief complaint of SOB. Patient reports that he has been experiencing SOB with associated right sided 5/10 chest pain, bilateral leg swelling, and cough with green phlegm production since last night at 8pm. Patient relays that he was at his sister's house today when he also experienced a syncopal episode, prompting his sister to call 911. Patient admits to cigarette, marijuana, and methamphetamine usage. Patient notes history of COPD, A-Fib, and HTN. Patient denies any fever, N/V/D, dizziness, headache, or chills. Chief Complaint: Shortness of Breath Time Seen by MD: 14:17 Primary Care Provider: ARISTEO Bridges notes: Nurses Notes, Bottler Helper Notes, Medications, Allergies Information Source: Patient, Emergency Med Personnel Mode of Arrival: EMS Severity: Moderate Timing: Hours Duration: Since onset Context: At Rest PE Risk Factors: None History of: COPD Prehospital treatment: Oxygen Modifying Factors: Nothing Associated Signs and Symptoms: Cough, Chest Pain Quality: Sharp Radiation: No Radiation Location: Chest (R) If cough with SOB: Productive, Green Past Medical History PAST MEDICAL HISTORY: AFIB, COPD, DM, High Lipids, HTN Surgical History: Hernia Repair Surgical History (Other): Cataract surgery Family History Family History: Reviewed,noncontributory to illness, Family hx of DM Social History Smoker: Cigarettes Alcohol: Denies ETOH Use Drugs: Marijuana, Methamphetamine Lives In: Home Constitutional: denies: chills, diaphoresis, fatigue, fever, malaise, sweats, weakness, others EENTM: denies: blurred vision, double vision, ear bleeding, ear discharge, ear drainage, ear pain, ear ringing, eye pain, eye redness, hearing loss, mouth pain, mouth swelling, nasal discharge, nose bleeding, nose congestion, nose pain, photophobia, tearing, throat pain, throat swelling, voice changes, others Respiratory: reports: cough, shortness of breath; denies: hemoptysis, orthopnea, SOB at rest, SOB with excertion, stridor, wheezing, others Cardiovascular: reports: chest pain, edema (Legs), syncope; denies: dizzy spells, diaphoresis, Dyspnea on exertion, irregular heart beat, left arm pain, lightheadedness, palpitations, PND, others Gastrointestinal: denies: abdomen distended, abdominal pain, blood streaked bowels, constipated, diarrhea, dysphagia, difficulty swallowing, hematemesis, melena, nausea, poor appetite, poor fluid intake, rectal bleeding, rectal pain, vomiting, others Genitourinary: denies: burning, dysuria, flank pain, frequency, hematuria, incontinence, penile discharge, penile sore, pain, testicle pain, testicle swelling, urgency, others Neurological: denies: dizziness, fainting, headache, left sided numbness, left sided weakness, numbness, paresthesia, pre-existing deficit, right sided numbness, right sided weakness, seizure, speech problems, tingling, tremors, weakness, others Musculoskeletal: denies: back pain, gout, joint pain, joint swelling, muscle pain, muscle stiffness, neck pain, others Integumetry: denies: bruises, change in color, change in hair/nails, dryness, laceration, lesions, lumps, rash, wounds, others Allergic/Immunocompromised: denies: Difficulty Healing, Frequent Infections, Hives, Itching, others Hematologic/Lymphatic: denies: anemia, blood clots, easy bleeding, easy bruising, swollen glands, others Endocrine: denies: excessive hunger, excessive sweating, excessive thirst, excessive urination, flushing, intolerance to cold, intolerance to heat, unexplained weight gain, unexplained weight loss, others Psychiatric: denies: anxiety, bipolar disorder, depression, hopeless, panic disorder, schizophrenia, sleepless, suicidal, others All Other Systems: Reviewed and Negative Physical Exam General Appearance: Moderate Distress HEENT: Normal ENT Inspection, Pharynx Normal, TMs Normal Neck: Full Range of Motion, Non-Tender, Normal, Normal Inspection Respiratory: Chest Non-Tender, Decreased Breath Sounds, Lungs Clear, No Accessory Muscle Use, Respiratory Distress Cardiovascular: No Edema, No JVD, No Murmur, No Gallop, Tachycardia Breast Exam: Deferred Gastrointestinal: No Organomegaly, Non Tender, No Pulsatile Mass, Normal Bowel Sounds, Soft Genitalia: Deferred Pelvic: Deferred Rectal: Deferred Extremities: No calf tenderness, Normal capillary refill, Normal inspection, N ormal range of motion, Non-tender, No pedal edema Musculoskeletal : Apperance: Normal Neurologic: Alert, photographic processor II-XII nml as Tested, No Motor Deficits, Normal Affect, Normal Mood, No Sensory Deficits Cerebellar Function: Normal Reflexes: Normal Skin: Dry, Normal Color, Warm Lymphatic: No Adenopathy EKG EKG : Pulse Rate (adult): 129 Cardiac Rhythm: ST Block: None ST: Nonsp Was a procedure done? Was a procedure done?: No Differential Dx Differential Diagnosis: Asthma, Bronchitis, CHF, Pneumonia, Other (Pleural effusion) X-Ray, Labs, Meds, VS Vital Signs Date Time Temp Pulse Resp B/P (MAP) Pulse Ox O2 Delivery O2 Flow Rate FiO2 07/04/24 15:20 124 07/04/24 14:13 98.1 126 39 109/65 (80) 94 98.1 07/04/24 14:13 95 Nasal Cannula* 5 40 07/04/24 14:00 98.9 128 26 110/73 (85) 95 07/04/24 13:54 129 Lab Test 07/04/24 16:38 07/04/24 15:00 Range/Units Troponin I High Sensitivity Pending 440 *H </=54 ng/L White Blood Count 12.7 H 4.4-10.8 10^3/uL Red Blood Count 5.17 4.5-5.90 10^6/uL Hemoglobin 15.6 13.5-17.5 g/dL Hematocrit 47.4 41.0-53.0 % Mean Corpuscular Volume 91.7 80.0-100.0 fL Mean Corpuscular Hemoglobin 30.1 28.0-32.0 pg Mean Corpuscular Hemoglobin Concent 32.8 32.0-36.0 g/dL Red Cell Distribution Width 13.8 11.8-14.3 % Platelet Count 256 140-450 10^3/uL Mean Platelet Volume 7.9 6.9-10.8 fL Neutrophils (%) (Auto) 37.0-80.0 % Lymphocytes (%) (Auto) 10.0-50.0 % Monocytes (%) (Auto) 0.0-12.0 % Basophils (%) (Auto) 0.0-2.0 % Neutrophils # (Auto) 1.6-8.6 10 ^3/uL Lymphocytes # (Auto) 0.4-5.4 10 ^3/uL Monocytes # (Auto) 0-1.3 10 ^3/uL Differential Total Cells Counted 100.0 100 Neutrophils % (Manual) 61 37.0-80.0 Band Neutrophils % (Manual) 5 Lymphocytes % (Manual) 15 10.0-50.0 Monocytes % (Manual) 12 0-12 Eosinophils % (Manual) 0 0-7 Basophils % (Manual) 0 0.0-2.0 Metamyelocytes % (manual) 1 Myelocytes % (Manual) 0 Promyelocytes % (Manual) 0 Blast Cells % (Manual) 0 Reactive Lymphocytes 6 Platelet Estimate Adequate Sodium Level 139 136-145 mmol/L Potassium Level 4.5 3.5-5.1 mmol/L Chloride Level 108 H 98-107 mmol/L Carbon Dioxide Level 22 20-31 mmol/L Anion Gap 9 5-15 Blood Urea Nitrogen 38 H 9-23 mg/dL Creatinine 2.09 H 0.700-1.30 mg/dL Glomerular Filtration Rate Calc 33 >90 mL/min BUN/Creatinine Ratio 18.2 10.0-20.0 Serum Glucose 124 H 74-106 mg/dL Lactic Acid Level 2.8 *H 0.4-2.0 mmol/L Calcium Level 9.1 8.7-10.4 mg/dL Magnesium Level 1.3 L 1.6-2.6 mg/dL B-Type Natriuretic Peptide 837.83 0-100 pg/mL Current Medications Medications (Trade) Dose Ordered Sig/Antoinette Route Start Time Stop Time Status Last Admin Methylprednisolone Sodium Succinate (Solu Medrol) 125 mg ONCE ONCE IV 07/04/24 14:45 07/04/24 14:46 DC 07/04/24 14:53 Ceftriaxone Sodium 50 ml @ 100 mls/hr ONCE ONCE IV 07/04/24 15:30 07/04/24 15:59 DC 07/04/24 15:39 The chest x-ray shows: IMPRESSION: Ebnfy-asbfylb-vcit-left lower lung zone opacities which may represent pneumonia in the right clinical setting. The patient was given Solu-Medrol 125 mg IV push The lactic acid level is pending The blood culture x2 is being drawn After the blood cultures were drawn, the patient was being given Rocephin 1 g IV piggyback The patient was started on Rocephin IV piggyback for the bilateral pneumonia The patient's CBC shows an elevated white blood cell count of 12.7 The patient's troponin level came back initially elevated at 440 The BNP is elevated at 837 The lactic acid level is at 2.8 The patient was being admitted with the elevated troponin level as well as the other abnormalities We have discussed findings with the patient and he is in agreement with the management. Images Reviewed?: Images reviewed and evaluated by me Time of 1ST Reevaluation: 17:10 Reevaluation 1ST: Unchanged Patient Education/Counseling: Diagnosis, Treatment, Prognosis Family Education/Counseling: No Family Present Departure 1 Departure Time of Disposition: 15:25 Impression: Primary Impression: Bilateral pneumonia Qualified Codes: J18.9 - Pneumonia, unspecified organism Additional Impressions: Acute respiratory failure Qualified Codes: J96.01 - Acute respiratory failure with hypoxia Hyperkalemia Disposition: ADMITTED INPATIENT Admit to: [facility] Condition: Fair Critical Care Note Critical Care Time?: Yes (35 min-critical care time only) Stability Stability form required: Yes Unstable for transfer: Telemetry monitoring (Telemetry monitoring required), ED Physician Assesment (Clinical assesment) Heart Score Heart Score: Heart Score Response (Comments) Value History N/A 0 EKG N/A 0 Age N/A 0 Risk Factors N/A 0 Troponin N/A 0 Total 0 I personally scribed for MIKA LOPEZ MD ([email or web address]) on 07/04/24 at 14:20. Electronically submitted by Darrel Cam ([email or web address]). MIKA LOPEZ MD Jul 04, 2024 14:20
[2024-07-04] MEDS: methylPREDNISolone SOD SUCC 125 MG/2 ML VL IV ONE (14:53)
--- NOTE | 2024-07-04 15:07 | DVH ---
CHEST RADIOGRAPH Indication: sob Technique: Single frontal view of the chest was obtained Comparison: XY CHEST PORTABLE on DOS: 01/07/24, XY CHEST PORTABLE on DOS: 10/21/23, CHEST XRAY 1 VIEW o n DOS: 12/28/19 FINDINGS: Lines and Tubes: None Lungs: Right lower lung zone opacification. Minimal left lower lung zone opacification. Pleura: No effusion. No pneumothorax. Cardiomediastinal contours: Unremarkable Bones: No acute osseous abnormality. IMPRESSION: Bkudj-tgaujht-wwtd-left lower lung zone opacities which may represent pneumonia in the right clinical setting.
[2024-07-04] MEDS: cefTRIAXone 1GM/50ML D5W 50 ML IV ONE (15:39)
[2024-07-04 15:43] LABS: Anion Gap 9 (5-15); Carbon Dioxide 22 mmol/L (20-31); Potassium 4.5 mmol/L (3.5-5.1); Sodium 139 mmol/L (136-145)
[2024-07-04 15:44] LABS: Calcium 9.1 mg/dL (8.7-10.4)
[2024-07-04 15:49] LABS: BUN/Creatinine Ratio 18.2 (10.0-20.0)
[2024-07-04 15:50] LABS: Blood Urea Nitrogen 38 mg/dL (9-23); Chloride 108 mmol/L (98-107); Glucose 124 mg/dL (74-106)
[2024-07-04 15:51] LABS: Magnesium 1.3 mg/dL (1.6-2.6)
[2024-07-04 15:54] LABS: Lactic Acid w/Reflex 2.8 mmol/L (0.4-2.0)
[2024-07-04 16:18] LABS: Hematocrit 47.4 % (41.0-53.0); Hemoglobin 15.6 g/dL (13.5-17.5); Mean Corpuscular Hemoglobin 30.1 pg (28.0-32.0); Mean Corpuscular Hgb Conc. 32.8 g/dL (32.0-36.0); Mean Corpuscular Volume 91.7 fL (80.0-100.0); Platelet Count (auto) 256 10^3/uL (140-450); Red Blood Cells 5.17 10^6/uL (4.5-5.90); Red Cell Distribution Width 13.8 % (11.8-14.3); White Blood Cell 12.7 10^3/uL (4.4-10.8)
[2024-07-04 16:19] LABS: Basophils % (manual) 0 (0.0-2.0); Blast Cells 0; Eosinophils % (manual) 0 (0-7); Myelocytes % 0; Promyelocytes % 0
[2024-07-04 16:50] LABS: Band Neutrophils % (manual) 5; Lymphocytes % (manual) 15 (10.0-50.0); Metamyelocytes % 1; Monocytes % (manual) 12 (0-12); Platelet Estimate Adequate; Reactive Lymphocytes 6
[2024-07-04] MEDS ORDERED: MORPHINE SULFATE INJ 2 MG/ml SYRG IV PRN (17:00)
[2024-07-04] MEDS ORDERED: HYDROcodone-ACET 5/325MG TAB PO PRN (17:00)
[2024-07-04] MEDS: ALBUTEROL SULF 2.5 MG/0.5ML(0.5%) NEB SOLN NEB SCH (18:08)
[2024-07-04] MEDS: IPRATROPIUM BROM 0.5 MG/2.5ML INH SOL NEB SCH (18:08)
[2024-07-04 19:02] LABS: Urine Bacteria None Seen /hpf (None Seen)
--- NOTE | 2024-07-04 19:11 | ECG ---
[facility] Test Date: 2024-07-04 Test Time: 13:54:06 Pat Name: LESLEY ABEBE Department: ER Room: [address] [place] [address] Gender: M Packing Floor Worker: VIPUL : 1955 Requested By: ALYX LOWERY Order Number: [id number] Reading MD: Larry Cuellar Measurements Intervals [place] Rate: 129 P: 87 DE: 121 QRS: 91 QRSD: 73 T: 62 QT: 316 QTc: 463 Interpretive Statements Sinus tachycardia Multiple premature complexes, vent & supraven Aberrant complex Right axis deviation Borderline T wave abnormalities Electronically Signed On 07-05-2024 13:10:35 PST by Larry Cuellar Please click the below link to view image of tracing.
[2024-07-04 19:14] LABS: Urine Blood Negative /uL (Negative); Urine Clarity Clear (Clear); Urine Color Yellow (Yellow); Urine Mucus FEW (None Seen); Urine Protein, UAD 2+ (Negative); Urine Specific Gravity 1.018 (1.001-1.035); Urine Squamous Epithelial Cell FEW /hpf (<5); Urine Urobilinogen Normal (Negative); Urine WBC 1 /hpf (0 - 3); Urine pH 5.5 (5.0-9.0)
[2024-07-04 19:17] LABS: Hemoglobin 16.4 g/dL (13.5-17.5); Mean Corpuscular Hemoglobin 30.8 pg (28.0-32.0); Mean Corpuscular Hgb Conc. 33.4 g/dL (32.0-36.0); Mean Corpuscular Volume 92.1 fL (80.0-100.0); Platelet Count (auto) 267 10^3/uL (140-450); Red Blood Cells 5.32 10^6/uL (4.5-5.90); White Blood Cell 10.3 10^3/uL (4.4-10.8)
[2024-07-04 19:19] LABS: Basophils % (manual) 0 (0.0-2.0); Blast Cells 0; Eosinophils % (manual) 0 (0-7); Metamyelocytes % 0; Myelocytes % 0; Promyelocytes % 0
[2024-07-04 19:24] LABS: INR 1.18 (0.9-1.15); Partial Thromboplastin Time 32.5 SEC (24.5-34.5); Prothrombin Time 12.4 sec (9.3-11.8)
[2024-07-04] MEDS ORDERED: HEPARIN DRIP/D5W 100UNITS/ML 250 ML IV SCH (19:45)
[2024-07-04 20:58] LABS: Band Neutrophils % (manual) 17; Lymphocytes % (manual) 19 (10.0-50.0); Monocytes % (manual) 10 (0-12); Platelet Estimate Adequate; Reactive Lymphocytes 4
[2024-07-04] MEDS: HEPARIN SODIUM (PORCINE) 5000 UNITS/ML 1ML VIAL IV ONE (21:02)
[2024-07-04] MEDS: HEPARIN DRIP/D5W 100UNITS/ML 250 ML IV SCH (21:03)
--- NOTE | 2024-07-04 22:40 | DVHINCON2 ---
Date of service: Jul 04, 2024 Referring Physician Eldon Maki MD Reason for Consultation Acute hypoxic respiratory failure History of Present Illness A 69-year-old man with past medical history of diabetes mellitus, current smoker, who presents to the ED with c/o shortness of breath. Patient reported sudden onset shortness of breath for 2 hours prior to presentation. Chest x-ray was notable for [id number]-left lower lung zone opacities which may represent pneumonia. Patient was admitted for further care and pulmonary consultation is requested for evaluation and management of acute hypoxic respiratory failure. Review of Systems: 14-point review of systems negative unless otherwise noted above. Past Medical History: Diabetes mellitus. Past Surgical History: None. Medications: Reviewed. Allergies: Codeine Family History: Emphysema Social History: Smoker. No alcohol or illicit drug use. Family History: FHx: emphysema G8 MOTHER, Allergies: Coded Allergies: Codeine (Verified Allergy, Severe, 10/31/19) Home Meds Active Scripts Metronidazole (Flagyl) 500 Mg Tab, 1 TAB PO TID, #14 TAB Prov:DIOGO MITCHELL MD 01/09/24 Lisinopril (Lisinopril) 10 Mg Tab, 10 MG PO BID, #60 TAB Prov:DIOGO MITCHELL MD 01/09/24 Metoprolol Tartrate (Metoprolol Tartrate) 25 Mg Tab, 1 TAB PO BID, #60 TAB 1 Refill Prov:DIOGO MITCHELL MD 01/09/24 Current Medications Current Medications Medications (Trade) Dose Ordered Sig/Antoinette Route PRN Reason Start Time Stop Time Status Last Admin Acetaminophen/ Hydrocodone Bitart ([place] 5/325MG Tab) 1 tab Q4HP PRN PO MODERATE PAIN (4-6 PAIN SCALE) 07/04/24 17:00 Hold Ondansetron HCl (Zofran) 4 mg Q4HP PRN IV NAUSEA / VOMITING 07/04/24 17:00 Enoxaparin Sodium (Lovenox) 30 mg DAILY SC 07/05/24 10:00 07/04/24 18:44 DC Acetaminophen (Tylenol Tablet) 650 mg Q6HP PRN PO PAIN SCALE 1-3 OR TEMP>100.4 07/04/24 17:00 Nitroglycerin (Ntrostat Sublingual) 0.4 mg Q5MINP PRN SL FOR CHEST PAIN 07/04/24 17:00 Morphine Sulfate 2 mg Q30M PRN IV FOR CHEST PAIN 07/04/24 17:00 Hold Piperacillin Sod/ Tazobactam Sod 100 ml @ 25 mls/hr Q12HR IV 07/04/24 22:00 Albuterol (Ventolin Medneb) 2.5 mg Q4HWA [facility] 07/04/24 18:00 07/04/24 22:06 Ipratropium [place] (Atrovent Medneb) 0.5 mg Q4HWA [facility] 07/04/24 18:00 07/04/24 22:06 Methylprednisolone Sodium Succinate (Solu Medrol) 60 mg Q8HR IV 07/04/24 22:00 Heparin Sodium/ Dextrose 250 ml @ 7 mls/hr Q24H IV 07/04/24 19:45 07/04/24 20:22 DC Heparin Sodium/ Dextrose 250 ml @ 7 mls/hr Q24H IV 07/04/24 20:30 07/04/24 21:03 Vital Signs Vital Signs Date Time Temp Pulse Resp B/P (MAP) Pulse Ox O2 Delivery O2 Flow Rate FiO2 07/04/24 22:11 117 20 96 07/04/24 20:00 99.0 97/52 (67) 99.0 07/04/24 19:30 Nasal Cannula* 5 40 Physical Exam Gen.: Patient lying in bed in no apparent distress. On supplemental oxygen. Head: Normocephalic, atraumatic. Eyes: EOMI/PERRLA. Ears: Normal hearing. Normal anatomy. Neck/trachea: Trachea midline, supple. Nose: Normal external anatomy. Mouth: Moist mucous membranes. Chest: Decreased air entry bilaterally. No wheezing or rhonchi. Cardiovascular: Positive S1, positive S2. Regular rate and rhythm. Abdomen: Positive bowel sounds in all 4 quadrants. Soft, non-tender, non- distended. : Deferred. Rectal: Deferred. Skin: Warm, dry. Intact. Extremities: 2+ radial pulses bilaterally. No lower extremity edema. Neuro: Awake, alert, oriented x3. No gross motor or sensory deficits. Cranial nerves II through XII intact. Gait not assessed. Labs/Diagnostic Data Labs Test 07/04/24 18:55 07/04/24 18:38 07/04/24 17:46 07/04/24 15:00 Range/Units White Blood Count 10.3 4.4-10.8 10^3/uL Red Blood Count 5.32 4.5-5.90 10^6/uL Hemoglobin 16.4 13.5-17.5 g/dL Hematocrit 49.0 41.0-53.0 % Mean Corpuscular Volume 92.1 80.0-100.0 fL Mean Corpuscular Hemoglobin 30.8 28.0-32.0 pg Mean Corpuscular Hemoglobin Concent 33.4 32.0-36.0 g/dL Red Cell Distribution Width 14.0 11.8-14.3 % Platelet Count 267 140-450 10^3/uL Mean Platelet Volume 7.5 6.9-10.8 fL Neutrophils (%) (Auto) 37.0-80.0 % Lymphocytes (%) (Auto) 10.0-50.0 % Monocytes (%) (Auto) 0.0-12.0 % Basophils (%) (Auto) 0.0-2.0 % Neutrophils # (Auto) 1.6-8.6 10 ^3/uL Lymphocytes # (Auto) 0.4-5.4 10 ^3/uL Monocytes # (Auto) 0-1.3 10 ^3/uL Differential Total Cells Counted 100.0 100 Neutrophils % (Manual) 50 37.0-80.0 Band Neutrophils % (Manual) 17 Lymphocytes % (Manual) 19 10.0-50.0 Monocytes % (Manual) 10 0-12 Eosinophils % (Manual) 0 0-7 Basophils % (Manual) 0 0.0-2.0 Metamyelocytes % (manual) 0 Myelocytes % (Manual) 0 Promyelocytes % (Manual) 0 Blast Cells % (Manual) 0 Reactive Lymphocytes 4 Platelet Estimate Adequate Prothrombin Time 12.4 H 9.3-11.8 sec Prothrombin Time INR 1.18 H 0.9-1.15 Activated Partial Thromboplast Time 32.5 24.5-34.5 SEC Urine Color Yellow Yellow Urine Clarity Clear Clear Urine pH 5.5 5.0-9.0 Urine Specific [place] 1.018 1.001-1.035 Urine Protein 2+ H Negative Urine Ketones Negative Negative Urine Blood Negative Negative /uL Urine Nitrite Negative Negative Urine Bilirubin Negative Negative Urine Urobilinogen Normal Negative mg/dL Urine Leukocyte Esterase Negative Negative /uL Urine RBC 1 0 - 3 /hpf Urine WBC 1 0 - 3 /hpf Urine Squamous Epithelial Cells Few <5 /hpf Urine Bacteria None seen None Seen /hpf Urine Mucus Few None Seen Urine Glucose Normal Normal mg/dL Lactic Acid Level 2.4 *H 0.4-2.0 mmol/L Troponin I High Sensitivity 628 *H </=54 ng/L Sodium Level 139 136-145 mmol/L Potassium Level 4.5 3.5-5.1 mmol/L Chloride Level 108 H 98-107 mmol/L Carbon Dioxide Level 22 20-31 mmol/L Anion Gap 9 5-15 Blood Urea Nitrogen 38 H 9-23 mg/dL Creatinine 2.09 H 0.700-1.30 mg/dL Glomerular Filtration Rate Calc 33 >90 mL/min BUN/Creatinine Ratio 18.2 10.0-20.0 Serum Glucose 124 H 74-106 mg/dL Calcium Level 9.1 8.7-10.4 mg/dL Magnesium Level 1.3 L 1.6-2.6 mg/dL B-Type Natriuretic Peptide 837.83 0-100 pg/mL Assessment Impression: Acute hypoxic respiratory failure Acute exacerbation of COPD Nicotine dependence Cough Dyspnea Elevated troponin/NSTEMI DM type II Acute kidney injury. Plan: Supplemental oxygen 5 LPM NC Titrate to keep O2 sats above 92%. Taper O2 as tolerated. Continue bronchodilators. Continue antibiotics IV steroids Incentive spirometry Cardiology was consulted d/t elevated troponin. Nephrology consulted for ANGELA Monitor renal function. Monitor electrolytes. Supplement as necessary. Monitor ins and outs. Smoking cessation discussed for greater than 10 minutes Pt has no desire to quit at this time. DVT prophylaxis. Prognosis: Poor given patient's multiple co-morbidities. Rest of plan per hospitalist and other consultants. Thank you Dr. Eldon Maki MD, for allowing me to participate in this patient's care. Further recommendations will depend on the patient's clinical course. Please do not hesitate to contact me if you have any questions or concerns. This medical document was created using an electronic medical record system with [employer] system. Although these documentations are being carefully reviewed, there may still be some phonetic and typographical changes. The errors are purely typographical, due to imperfection on the software program, and do not reflect any compromise in the patient's medical care. Plan discussed with: Patient, Other (RN/MD Maki) KOKI HANSEN MD Jul 04, 2024 22:40
[2024-07-04] MEDS: methylPREDNISolone SOD SUCC 125 MG/2 ML VL IV SCH (22:53)
[2024-07-04] MEDS: PIPERACILLIN-TAZOB 3.375GM 100 ML IV SCH (22:54)
[2024-07-05] VITALS (15 sets, daily range): BP systolic 116–118; BP diastolic 74–79; PULSE 77–113; RESP 18–23; TEMP 97.7–98.8; O2SAT 91–100
--- NOTE | 2024-07-05 01:12 | DVHHP2 ---
Admitting Diagnosis: Pneumonia, ANGELA, elevated troponin History of Present Illness History Source: Patient Exam Limitations: No limitations HPI Mr. Hector Vuong is a 69 year old male with a history of a fib, COPD, HLD, hypertension, DM who presents with a chief complaint of shortness of breath. Patient reports that he has been experiencing SOB with associated right sided non radiating 5/10 chest pain, bilateral leg swelling, and cough with green phlegm production x 1 day. Patient endorses he was walking out in the cold from his sisters home where he resides without a jacket in the cold. Patient reports he smokes 1 pack of cigarettes daily and smokes methamphetamine last used x 2 days ago. Patient denies headaches, dizziness, nausea, vomiting, fevers, chills. Patient admitted for further evaluation. Home Meds Active Scripts Metronidazole (Flagyl) 500 Mg Tab, 1 TAB PO TID, #14 TAB Prov:DIOGO MITCHELL MD 01/09/24 Lisinopril (Lisinopril) 10 Mg Tab, 10 MG PO BID, #60 TAB Prov:DIOGO MITCHELL MD 01/09/24 Metoprolol Tartrate (Metoprolol Tartrate) 25 Mg Tab, 1 TAB PO BID, #60 TAB 1 Re fill Prov:DIOGO MITCHELL MD 01/09/24 Past Medical History Cardiac: AFIB, HTN, Hyperlipidemia Pulmonary: COPD Central Nervous System: No pertinent Hx GI: No pertinent Hx Hemotology/Oncology: No pertinent Hx Hepatobiliary: No pertinent Hx Psychiatric: No pertinent Hx Musculoskeletal: No pertinent Hx Rheumotologic: No pertinent Hx Infectious Disease: No peritnent Hx ENT: No pertinent Hx Renal/: No pertinent Hx Endocrine: NIDDM Dermatology: No pertinent Hx Patient Family History: FHx: emphysema G8 MOTHER, Smoker: 1 pack per day Alocohol: None Drugs: Amphetimines Lives with: With family Domestic Violence: Neg Review of Systems Constitutional: No symptom reported Ears, Nose, & Throat: No symptom reported Eyes: No symptom reported Pulmonary/Respiratory: Dyspnea, Cough (productive cough) Cardiovascular: Chest Pain Gastrointestinal: No symptom reported Genitourinary: No symptom reported Musculoskeletal: No symptom reported Skin: No symptom reported Psychiatric: No symptom reported Endocrine: No symptom reported Hemotologic/Lymphatic: No symptom reported H&P Exam Vital Signs Vital Signs Date Time Temp Pulse Resp B/P (MAP) Pulse Ox O2 Delivery O2 Flow Rate FiO2 07/05/24 00:00 112 07/04/24 22:11 20 96 07/04/24 21:45 Nasal Cannula* 5 40 07/04/24 20:00 99.0 97/52 (67) 99.0 General Appeara: Well developed, Well nourished Head Exam: Normal inspection Neck Exam: Normal inspection, Non-tender, Normal alignment Eye Exam: bilateral eye Normal inspection, bilateral eye PERRL, bilateral eye EOMI Ear Exam: bilateral ear Auricle normal Nasal Exam: Normal inspection Mouth: Normal Inspection Pulmonary/Respiratory: Normal inspection, Chest non-tender, Crackles, Rhonci Cardiovascular/Chest: Normal inspection, Regular rate, Normal Rhythm Peripheral Pulses: 2+ dorsalis pedis (R), 2+ dorsalis pedis (L), 2+ Radial (R), 2+ Radial (L) Abdominal Exam: Normal bowel sounds, Soft Rectal Exam: Deferred [employer] Exam: Normal hearing, Normal speech, PERRL Neuro/Mental St: Alert, Oriented Appearance: Appropriate appearance, Appropriate insight Eye contact/ Speech: Cooperative, Good eye contact, Normal speech Thoughts/Psych: Normal thought pattern Skin Exam: Normal inspection, Normal color, Warm/dry Labs/Xrays Labs Test 07/04/24 18:55 07/04/24 18:38 07/04/24 17:46 07/04/24 15:00 Range/Units White Blood Count 10.3 4.4-10.8 10^3/uL Red Blood Count 5.32 4.5-5.90 10^6/uL Hemoglobin 16.4 13.5-17.5 g/dL Hematocrit 49.0 41.0-53.0 % Mean Corpuscular Volume 92.1 80.0-100.0 fL Mean Corpuscular Hemoglobin 30.8 28.0-32.0 pg Mean Corpuscular Hemoglobin Concent 33.4 32.0-36.0 g/dL Red Cell Distribution Width 14.0 11.8-14.3 % Platelet Count 267 140-450 10^3/uL Mean Platelet Volume 7.5 6.9-10.8 fL Neutrophils (%) (Auto) 37.0-80.0 % Lymphocytes (%) (Auto) 10.0-50.0 % Monocytes (%) (Auto) 0.0-12.0 % Basophils (%) (Auto) 0.0-2.0 % Neutrophils # (Auto) 1.6-8.6 10 ^3/uL Lymphocytes # (Auto) 0.4-5.4 10 ^3/uL Monocytes # (Auto) 0-1.3 10 ^3/uL Differential Total Cells Counted 100.0 100 Neutrophils % (Manual) 50 37.0-80.0 Band Neutrophils % (Manual) 17 Lymphocytes % (Manual) 19 10.0-50.0 Monocytes % (Manual) 10 0-12 Eosinophils % (Manual) 0 0-7 Basophils % (Manual) 0 0.0-2.0 Metamyelocytes % (manual) 0 Myelocytes % (Manual) 0 Promyelocytes % (Manual) 0 Blast Cells % (Manual) 0 Reactive Lymphocytes 4 Platelet Estimate Adequate Prothrombin Time 12.4 H 9.3-11.8 sec Prothrombin Time INR 1.18 H 0.9-1.15 Activated Partial Thromboplast Time 32.5 24.5-34.5 SEC Urine Color Yellow Yellow Urine Clarity Clear Clear Urine pH 5.5 5.0-9.0 Urine Specific [place] 1.018 1.001-1.035 Urine Protein 2+ H Negative Urine Ketones Negative Negative Urine Blood Negative Negative /uL Urine Nitrite Negative Negative Urine Bilirubin Negative Negative Urine Urobilinogen Normal Negative mg/dL Urine Leukocyte Esterase Negative Negative /uL Urine RBC 1 0 - 3 /hpf Urine WBC 1 0 - 3 /hpf Urine Squamous Epithelial Cells Few <5 /hpf Urine Bacteria None seen None Seen /hpf Urine Mucus Few None Seen Urine Glucose Normal Normal mg/dL Lactic Acid Level 2.4 *H 0.4-2.0 mmol/L Troponin I High Sensitivity 628 *H </=54 ng/L Sodium Level 139 136-145 mmol/L Potassium Level 4.5 3.5-5.1 mmol/L Chloride Level 108 H 98-107 mmol/L Carbon Dioxide Level 22 20-31 mmol/L Anion Gap 9 5-15 Blood Urea Nitrogen 38 H 9-23 mg/dL Creatinine 2.09 H 0.700-1.30 mg/dL Glomerular Filtration Rate Calc 33 >90 mL/min BUN/Creatinine Ratio 18.2 10.0-20.0 Serum Glucose 124 H 74-106 mg/dL Calcium Level 9.1 8.7-10.4 mg/dL Magnesium Level 1.3 L 1.6-2.6 mg/dL B-Type Natriuretic Peptide 837.83 0-100 pg/mL Assessment/Plan Problem List: (1) Pneumonia (2) COPD (chronic obstructive pulmonary disease) (3) Elevated troponin (4) Acute kidney injury Plan 69 yo male with known history of a fib, COPD, Hyperlipidemia, hypertension, DM presents to the hospital with shortness of breath, chest pain. Patient found to have 1. Pneumonia 2. COPD exacerbation 3. Acute Kidney Injury 4. Elevated troponin levels Admit Telemetry unit Pulmonology consultation, Duo Neb treatments, IV steroids, IV antibiotic Nephrology consultation, monitor BMP Cardiology consultation, 2D echo, serial troponin levels, ASA, Heparin drip per pharmacy ACS protocol Discussed all above with patient who verbalizes agreement and understanding of care plan. All questions were answered. Discussed assessment and care plan with supervising MD . Plan discussed with: Patient, Other Code Visit Code Visit Total Time (mins): 45 Additional Comments Additional Comments Additional Comments Patient was seen and evaluated by me. Currently patient was on heparin drip. I agree with the assessment and plan as outlined by my nurse practitioner. PAMELA BYRD Jul 05, 2024 01:12 CARLEEN GUARDADO MD Jul 05, 2024 17:57
[2024-07-05 03:41] LABS: Basophils # (auto) 0 10 ^3/uL (0-0.2); Basophils % (auto) 0.2 % (0.0-2.0); Eosinophils # (auto) 0 10 ^3/uL (0-0.8); Hematocrit 52.9 % (41.0-53.0); Hemoglobin 16.9 g/dL (13.5-17.5); Lymphocytes % (auto) 7.3 % (10.0-50.0); Mean Corpuscular Hemoglobin 30.6 pg (28.0-32.0); Mean Corpuscular Hgb Conc. 32.1 g/dL (32.0-36.0); Mean Corpuscular Volume 95.4 fL (80.0-100.0); Monocytes % (auto) 6.7 % (0.0-12.0); Neutrophils # (auto) 12.3 10 ^3/uL (1.6-8.6); Neutrophils % (auto) 85.8 % (37.0-80.0); Nucleated Red Blood Cells % 0.1 %; Platelet Count (auto) 226 10^3/uL (140-450); Red Blood Cells 5.54 10^6/uL (4.5-5.90); Red Cell Distribution Width 14.6 % (11.8-14.3); White Blood Cell 14.3 10^3/uL (4.4-10.8)
[2024-07-05 03:47] LABS: Alanine Aminotransferase 20 U/L (7-40); Albumin 3.4 g/dL (3.2-4.8); Anion Gap 10 (5-15); Aspartate Aminotransferase 26 U/L (13-40); BUN/Creatinine Ratio 14.2 (10.0-20.0); Calcium 9.1 mg/dL (8.7-10.4); Chloride 106 mmol/L (98-107); Total Protein 6.6 g/dL (5.7-8.2)
[2024-07-05 03:53] LABS: INR 1.32 (0.9-1.15); Prothrombin Time 13.7 sec (9.3-11.8)
[2024-07-05 04:10] LABS: Alkaline Phosphatase 42 U/L (46-116); Bilirubin, Total 1.4 mg/dL (0.2-1.0); Blood Urea Nitrogen 29 mg/dL (9-23); Carbon Dioxide 18 mmol/L (20-31); Glucose 186 mg/dL (74-106); Potassium 5.3 mmol/L (3.5-5.1); Sodium 134 mmol/L (136-145)
[2024-07-05] MEDS: HEPARIN SODIUM (PORCINE) 5000 UNITS/ML 1ML VIAL ONE (04:41)
[2024-07-05] MEDS: HEPARIN SODIUM (PORCINE) 5000 UNITS/ML 1ML VIAL IV ONE (04:41)
[2024-07-05] MEDS: HEPARIN DRIP/D5W 100UNITS/ML 250 ML IV SCH ×3 (04:42→18:31)
[2024-07-05] MEDS: SODIUM BICARB 8.4% 50Meq/50ml SYR Vial IV ONE (05:36)
[2024-07-05] MEDS: SODIUM CHLORIDE 0.9% 1,000 ML IV SCH (10:00)
[2024-07-05] MEDS ORDERED: ENOXAPARIN SOD 30 MG/0.3 ML SYRINGE SC SCH (10:00)
[2024-07-05 11:30] LABS: Chloride 103 mmol/L (98-107); Potassium 4.9 mmol/L (3.5-5.1); Sodium 136 mmol/L (136-145)
[2024-07-05 11:31] LABS: Anion Gap 8 (5-15); Calcium 8.8 mg/dL (8.7-10.4); Carbon Dioxide 25 mmol/L (20-31)
[2024-07-05 11:36] LABS: BUN/Creatinine Ratio 22.7 (10.0-20.0)
[2024-07-05 11:38] LABS: Blood Urea Nitrogen 45 mg/dL (9-23); Glucose 262 mg/dL (74-106)
[2024-07-05 11:39] LABS: INR 1.34 (0.9-1.15); Partial Thromboplastin Time 40.2 SEC (24.5-34.5); Prothrombin Time 13.9 sec (9.3-11.8)
--- NOTE | 2024-07-05 12:54 | DVHSR ---
APPROVED REPORT EXAM: Two-dimensional and M-mode echocardiogram with Doppler and color Doppler. Blood Pressure: 118/75 mmHg INDICATION Congestive Heart Failure RISK FACTORS Height: 66, Weight: 130 DIMENSIONS LVDd (3.8-5.7cm)LA (2D)4.2 (1.9-4.0cm)Aortic Root3.4 (2.0-3.7cm) LVDs (2.5-4.0cm)LA (MM) (1.9-4.0cm)Aortic Cusp Exc1.8 (1.5-2.0cm) EF (%) 35.0 (55-70%)Rt. Atrium3.6 (1.9-4.0cm)Asc. Aorta cm Mitral Valve MitralMitral Stenosis E wave0.67m/sMV Mean GR.mmHg A wave1.02m/sMV Peak GR.62mmHg E/A ratio0.72D MVAcm2 DECEL [id number] 1/2 [id number] IVRTmsDop MVA4.94cm2 Aortic Valve Aortic ValveAortic Stenosis V10.86m/Aleksey Mean GR.3mmHg V21.21m/Aleksey Peak GR.6mmHg LVOT Diameter2.0 (1.8-2.4cm)Doppler AVA2.23cm2 Pulmonic Valve V20.68m/s Tricuspid Valve TR Velocity2.42m/s [id number] Conclusion Technically good study. Sinus rhythm. Left atrial enlargement. Valves are normal. EF of 35% with global hypokinesis. Dopplers unremarkable. Mild MR and mild pulmonic insufficiency. Mild tricuspid insufficiency. No pericardial effusion masses or vegetations.
--- NOTE | 2024-07-05 13:44 | DVHINCON2 ---
Date of service: Jul 05, [address] Maki Reason for Consultation Acute kidney injury History of Present Illness 69-year-old male with past medical history of congestive heart failure, methamphetamine abuse, COPD presents to the hospital complaining of shortness of breath and weakness. Patient is admitted for this reason. Nephrology consulted due to elevated creatinine level. 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 appears to have kidney function approximately stage III Allergies: Coded Allergies: Codeine (Verified Allergy, Severe, 10/31/19) Home Meds Active Scripts Metronidazole (Flagyl) 500 Mg Tab, 1 TAB PO TID, #14 TAB Prov:DIOGO MITCHELL MD 01/09/24 Lisinopril (Lisinopril) 10 Mg Tab, 10 MG PO BID, #60 TAB Prov:DIOGO MITCHELL MD 01/09/24 Metoprolol Tartrate (Metoprolol Tartrate) 25 Mg Tab, 1 TAB PO BID, #60 TAB 1 Refill Prov:DIOGO MITCHELL MD 01/09/24 Current Medications Current Medications Medications (Trade) Dose Ordered Sig/Antoinette Route PRN Reason Start Time Stop Time Status Last Admin Acetaminophen/ Hydrocodone Bitart ([place] 5/325MG Tab) 1 tab Q4HP PRN PO MODERATE PAIN (4-6 PAIN SCALE) 07/04/24 17:00 Hold Ondansetron HCl (Zofran) 4 mg Q4HP PRN IV NAUSEA / VOMITING 07/04/24 17:00 Enoxaparin Sodium (Lovenox) 30 mg DAILY SC 07/05/24 10:00 07/04/24 18:44 DC Acetaminophen (Tylenol Tablet) 650 mg Q6HP PRN PO PAIN SCALE 1-3 OR TEMP>100.4 07/04/24 17:00 Nitroglycerin (Ntrostat Sublingual) 0.4 mg Q5MINP PRN SL FOR CHEST PAIN 07/04/24 17:00 Morphine Sulfate 2 mg Q30M PRN IV FOR CHEST PAIN 07/04/24 17:00 Hold Piperacillin Sod/ Tazobactam Sod 100 ml @ 25 mls/hr Q12HR IV 07/04/24 22:00 07/05/24 10:00 Albuterol (Ventolin Medneb) 2.5 mg Q4HWA [facility] 07/04/24 18:00 07/05/24 09:36 Ipratropium [place] (Atrovent Medneb) 0.5 mg Q4HWA NEB 07/04/24 18:00 07/05/24 09:36 Methylprednisolone Sodium Succinate (Solu Medrol) 60 mg Q8HR IV 07/04/24 22:00 07/05/24 06:46 Heparin Sodium/ Dextrose 250 ml @ 7 mls/hr Q24H IV 07/04/24 19:45 07/04/24 20:22 DC Heparin Sodium/ Dextrose 250 ml @ 7 mls/hr Q24H IV 07/04/24 20:30 07/05/24 04:38 DC 07/04/24 21:03 Heparin Sodium/ Dextrose 250 ml @ 10 mls/hr Q24H IV 07/05/24 04:45 07/05/24 13:03 DC 07/05/24 04:42 Sodium Chloride 1,000 ml @ 75 mls/hr [id number] IV 07/05/24 10:00 07/05/24 10:00 Heparin Sodium/ Dextrose 250 ml @ 12 mls/hr [id number] IV 07/05/24 13:15 Family History: FHx: emphysema G8 MOTHER, Review of Systems Shortness of breath H&P Exam Vital Signs/I&O Vital Sign Date Time Temp Pulse Resp B/P (MAP) Pulse Ox O2 Delivery O2 Flow Rate FiO2 07/05/24 09:42 107 20 98 07/05/24 09:36 Nasal Cannula* 4 36 07/05/24 09:06 118/79 (92) 07/04/24 22:00 97.8 97.8 Intake and Output 07/04/24 07/05/24 19:00 07:00 Intake Total 174.25 ml Balance 174.25 ml Intake IV Total 174.25 ml Physical Exam Elderly male Nonacute distress Abdomen is soft No pitting edema Labs/Diagnostic Data Labs/Diagnostic Data Laboratory Tests Test 07/05/24 11:00 07/05/24 03:01 07/04/24 18:55 07/04/24 18:38 Range/Units Prothrombin Time 13.9 H 13.7 H 12.4 H 9.3-11.8 sec Prothrombin Time INR 1.34 H 1.32 H 1.18 H 0.9-1.15 Activated Partial Thromboplast Time 40.2 H 35.0 H 32.5 24.5-34.5 SEC Sodium Level 136 134 #L 136-145 mmol/L Potassium Level 4.9 5.3 H 3.5-5.1 mmol/L Chloride Level 103 106 98-107 mmol/L Carbon Dioxide Level 25 18 L 20-31 mmol/L Anion Gap 8 10 5-15 Blood Urea Nitrogen 45 #H 29 H 9-23 mg/dL Creatinine 1.98 H 2.04 H 0.700-1.30 mg/dL Glomerular Filtration Rate Calc 36 34 >90 mL/min BUN/Creatinine Ratio 22.7 H 14.2 10.0-20.0 Serum Glucose 262 H 186 H 74-106 mg/dL Calcium Level 8.8 9.1 8.7-10.4 mg/dL White Blood Count 14.3 #H 10.3 4.4-10.8 10^3/uL Red Blood Count 5.54 5.32 4.5-5.90 10^6/uL Hemoglobin 16.9 16.4 13.5-17.5 g/dL Hematocrit 52.9 49.0 41.0-53.0 % Mean Corpuscular Volume 95.4 92.1 80.0-100.0 fL Mean Corpuscular Hemoglobin 30.6 30.8 28.0-32.0 pg Mean Corpuscular Hemoglobin Concent 32.1 33.4 32.0-36.0 g/dL Red Cell Distribution Width 14.6 H 14.0 11.8-14.3 % Platelet Count 226 267 140-450 10^3/uL Mean Platelet Volume 7.6 7.5 6.9-10.8 fL Neutrophils (%) (Auto) 85.8 H 37.0-80.0 % Lymphocytes (%) (Auto) 7.3 L 10.0-50.0 % Monocytes (%) (Auto) 6.7 0.0-12.0 % Eosinophils (%) (Auto) 0.0 0.0-7.0 % Basophils (%) (Auto) 0.2 0.0-2.0 % Neutrophils # (Auto) 12.3 H 1.6-8.6 10 ^3/uL Lymphocytes # (Auto) 1.0 0.4-5.4 10 ^3/uL Monocytes # (Auto) 1.0 0-1.3 10 ^3/uL Eosinophils # (Auto) 0 0-0.8 10 ^3/uL Basophils # (Auto) 0 0-0.2 10 ^3/uL Nucleated Red Blood Cells 0.1 % Total Bilirubin 1.4 H 0.2-1.0 mg/dL Aspartate Amino Transferase (AST) 26 13-40 U/L Alanine Aminotransferase (ALT) 20 7-40 U/L Alkaline Phosphatase 42 L 46-116 U/L Total Protein 6.6 5.7-8.2 g/dL Albumin 3.4 3.2-4.8 g/dL Differential Total Cells Counted 100.0 100 Neutrophils % (Manual) 50 37.0-80.0 Band Neutrophils % (Manual) 17 Lymphocytes % (Manual) 19 10.0-50.0 Monocytes % (Manual) 10 0-12 Eosinophils % (Manual) 0 0-7 Basophils % (Manual) 0 0.0-2.0 Metamyelocytes % (manual) 0 Myelocytes % (Manual) 0 Promyelocytes % (Manual) 0 Blast Cells % (Manual) 0 Reactive Lymphocytes 4 Platelet Estimate Adequate Urine Color Yellow Yellow Urine Clarity Clear Clear Urine pH 5.5 5.0-9.0 Urine Specific [place] 1.018 1.001-1.035 Urine Protein 2+ H Negative Urine Ketones Negative Negative Urine Blood Negative Negative /uL Urine Nitrite Negative Negative Urine Bilirubin Negative Negative Urine Urobilinogen Normal Negative mg/dL Urine Leukocyte Esterase Negative Negative /uL Urine RBC 1 0 - 3 /hpf Urine WBC 1 0 - 3 /hpf Urine Squamous Epithelial Cells Few <5 /hpf Urine Bacteria None seen None Seen /hpf Urine Mucus Few None Seen Urine Glucose Normal Normal mg/dL Test 07/04/24 17:46 07/04/24 16:38 07/04/24 15:00 Range/Units Lactic Acid Level 2.4 *H 2.8 *H 0.4-2.0 mmol/L Troponin I High Sensitivity 628 *H 466 *H 440 *H </=54 ng/L White Blood Count 12.7 H 4.4-10.8 10^3/uL Red Blood Count 5.17 4.5-5.90 10^6/uL Hemoglobin 15.6 13.5-17.5 g/dL Hematocrit 47.4 41.0-53.0 % Mean Corpuscular Volume 91.7 80.0-100.0 fL Mean Corpuscular Hemoglobin 30.1 28.0-32.0 pg Mean Corpuscular Hemoglobin Concent 32.8 32.0-36.0 g/dL Red Cell Distribution Width 13.8 11.8-14.3 % Platelet Count 256 140-450 10^3/uL Mean Platelet Volume 7.9 6.9-10.8 fL Neutrophils (%) (Auto) 37.0-80.0 % Lymphocytes (%) (Auto) 10.0-50.0 % Monocytes (%) (Auto) 0.0-12.0 % Basophils (%) (Auto) 0.0-2.0 % Neutrophils # (Auto) 1.6-8.6 10 ^3/uL Lymphocytes # (Auto) 0.4-5.4 10 ^3/uL Monocytes # (Auto) 0-1.3 10 ^3/uL Differential Total Cells Counted 100.0 100 Neutrophils % (Manual) 61 37.0-80.0 Band Neutrophils % (Manual) 5 Lymphocytes % (Manual) 15 10.0-50.0 Monocytes % (Manual) 12 0-12 Eosinophils % (Manual) 0 0-7 Basophils % (Manual) 0 0.0-2.0 Metamyelocytes % (manual) 1 Myelocytes % (Manual) 0 Promyelocytes % (Manual) 0 Blast Cells % (Manual) 0 Reactive Lymphocytes 6 Platelet Estimate Adequate Sodium Level 139 136-145 mmol/L Potassium Level 4.5 3.5-5.1 mmol/L Chloride Level 108 H 98-107 mmol/L Carbon Dioxide Level 22 20-31 mmol/L Anion Gap 9 5-15 Blood Urea Nitrogen 38 H 9-23 mg/dL Creatinine 2.09 H 0.700-1.30 mg/dL Glomerular Filtration Rate Calc 33 >90 mL/min BUN/Creatinine Ratio 18.2 10.0-20.0 Serum Glucose 124 H 74-106 mg/dL Calcium Level 9.1 8.7-10.4 mg/dL Magnesium Level 1.3 L 1.6-2.6 mg/dL B-Type Natriuretic Peptide 837.83 0-100 pg/mL Assessment Acute kidney injury hemodynamically mediated Chronic kidney disease stage IIIA History of cardiomyopathy likely in the setting of methamphetamine abuse Pneumonia Sepsis Elevated troponin; non ST elevated myocardial infarction Hyperkalemia now resolved IV antibiotics treatment pneumonia IV fluid Avoid hypotension Obtain urine protein creatinine ratio given positive 2+ protein Obtain serologies in urinary drug screen patient endorsed recent methamphetamine abuse. Avoid contrast studies and avoid nonsteroidal agents at this time Plan discussed with: Patient RUI SHAFER MD Jul 05, 2024 13:44
--- NOTE | 2024-07-05 15:04 | DVHPN2 ---
Progress Note - Dictate Date Seen: Jul 05, 2024 Medical Necessity Reason Pt with a Central, PICC or Fol: No Subjective Patient seen and examined at bedside. Remains on supplemental oxygen Overnight events reviewed. vital signs Vital Sign Date Time Temp Pulse Resp B/P (MAP) Pulse Ox O2 Delivery O2 Flow Rate FiO2 07/05/24 14:06 106 19 99 07/05/24 14:00 Nasal Cannula 4.0 07/05/24 14:00 36 07/05/24 09:06 118/79 (92) 07/04/24 22:00 97.8 97.8 Total Intake and Output 07/04/24 07/04/24 07/05/24 15:00 23:00 07:00 Intake Total 39 ml 135.25 ml Balance 39 ml 135.25 ml medications Current Medications Medications Dose Ordered Sig/Antoinette Route Start Time Stop Time Status Last Admin Dose Admin Acetaminophen/ Hydrocodone Bitart 1 tab Q4HP PRN PO 07/04/24 17:00 Hold Ondansetron HCl 4 mg Q4HP PRN IV 07/04/24 17:00 Acetaminophen 650 mg Q6HP PRN PO 07/04/24 17:00 Nitroglycerin 0.4 mg Q5MINP PRN SL 07/04/24 17:00 Morphine Sulfate 2 mg Q30M PRN IV 07/04/24 17:00 Hold Piperacillin Sod/ Tazobactam Sod 100 ml @ 25 mls/hr Q12HR IV 07/04/24 22:00 07/05/24 10:00 25 MLS/HR Albuterol 2.5 mg Q4HWA [facility] 07/04/24 18:00 07/05/24 14:00 2.5 MG Ipratropium [place] 0.5 mg Q4HWA [facility] 07/04/24 18:00 07/05/24 14:00 0.5 MG Methylprednisolone Sodium Succinate 60 mg Q8HR IV 07/04/24 22:00 07/05/24 06:46 60 MG Sodium Chloride 1,000 ml @ 75 mls/hr [id number] IV 07/05/24 10:00 07/05/24 10:00 75 MLS/HR Heparin Sodium/ Dextrose 250 ml @ 12 mls/hr [id number] IV 07/05/24 13:15 07/05/24 13:15 12 MLS/HR objective Gen.: Patient lying in bed in no apparent distress. On supplemental oxygen. Head: Normocephalic, atraumatic. Eyes: EOMI/PERRLA. Ears: Normal hearing. Normal anatomy. Neck/trachea: Trachea midline, supple. Nose: Normal external anatomy. Mouth: Moist mucous membranes. Chest: Decreased air entry bilaterally. No wheezing or rhonchi. Cardiovascular: Positive S1, positive S2. Regular rate and rhythm. Abdomen: Positive bowel sounds in all 4 quadrants. Soft, non-tender, non- distended. : Deferred. Rectal: Deferred. Skin: Warm, dry. Intact. Extremities: 2+ radial pulses bilaterally. No lower extremity edema. Neuro: Awake, alert, oriented x3. No gross motor or sensory deficits. Cranial nerves II through XII intact. Gait not assessed. laboratory and microbiology Laboratory Tests 07/05/24 11:00 07/05/24 03:01 Test 07/05/24 11:00 Range/Units Serum Glucose 262 H 74-106 mg/dL Assessment/Plan Impression: Acute hypoxic respiratory failure Cough Dyspnea Elevated troponin/NSTEMI DM type II Acute kidney injury. Nicotine dependence Events: Remains on supplemental oxygen, 4 LPM NC Taper O2 as tolerated Continue bronchodilators Continue steroids Continue antibiotics - Zosyn Incentive spirometry Heparin drip. Cardiology recs appreciated. Monitor renal function Creatinine trending down. Lactic acid trending down. Labs and imaging reviewed. Rest of plan as noted below. Plan: Supplemental oxygen Titrate to keep O2 sats above 92%. Continue bronchodilators. Continue antibiotics IV steroids Incentive spirometry Cardiology was consulted d/t elevated troponin. Nephrology consulted for ANGELA Monitor renal function. Monitor electrolytes. Supplement as necessary. Monitor ins and outs. DVT prophylaxis. Prognosis: Poor given patient's multiple co-morbidities. Rest of plan per hospitalist and other consultants. Thank you Dr. Eldon Maki MD, for allowing me to participate in this patient's care. Further recommendations will depend on the patient's clinical course. Please do not hesitate to contact me if you have any questions or concerns. This medical document was created using an electronic medical record system with [employer] system. Although these documentations are being carefully reviewed, there may still be some phonetic and typographical changes. The errors are purely typographical, due to imperfection on the software program, and do not reflect any compromise in the patient's medical care. Plan discussed with: Patient, Other (RN) KOKI HANSEN MD Jul 05, 2024 15:04
[2024-07-05 17:10] LABS: INR 1.38 (0.9-1.15); Prothrombin Time 14.3 sec (9.3-11.8)
[2024-07-05 23:54] LABS: INR 1.14 (0.9-1.15); Partial Thromboplastin Time 34.9 SEC (24.5-34.5)
[2024-07-06] VITALS (19 sets, daily range): BP systolic 111–131; BP diastolic 71–85; PULSE 72–107; RESP 14–20; TEMP 97.5–98.7; O2SAT 93–100
[2024-07-06] MEDS: HEPARIN SODIUM (PORCINE) 5000 UNITS/ML 1ML VIAL IV ONE (01:15)
[2024-07-06] MEDS: HEPARIN DRIP/D5W 100UNITS/ML 250 ML IV SCH (01:19)
[2024-07-06 07:19] LABS: Basophils # (auto) 0 10 ^3/uL (0-0.2); Basophils % (auto) 0.1 % (0.0-2.0); Eosinophils # (auto) 0 10 ^3/uL (0-0.8); Hematocrit 39.3 % (41.0-53.0); Hemoglobin 13.6 g/dL (13.5-17.5); Lymphocytes # (auto) 0.8 10 ^3/uL (0.4-5.4); Lymphocytes % (auto) 4.8 % (10.0-50.0); Mean Corpuscular Hemoglobin 31.2 pg (28.0-32.0); Mean Corpuscular Hgb Conc. 34.7 g/dL (32.0-36.0); Mean Corpuscular Volume 89.8 fL (80.0-100.0); Monocytes # (auto) 1.1 10 ^3/uL (0-1.3); Monocytes % (auto) 6.7 % (0.0-12.0); Neutrophils # (auto) 14.3 10 ^3/uL (1.6-8.6); Neutrophils % (auto) 88.4 % (37.0-80.0); Platelet Count (auto) 233 10^3/uL (140-450); Red Blood Cells 4.38 10^6/uL (4.5-5.90); Red Cell Distribution Width 13.8 % (11.8-14.3); White Blood Cell 16.2 10^3/uL (4.4-10.8)
[2024-07-06 07:37] LABS: Anion Gap 7 (5-15); Carbon Dioxide 24 mmol/L (20-31)
[2024-07-06 07:40] LABS: INR 1.01 (0.9-1.15); Prothrombin Time 10.7 sec (9.3-11.8)
[2024-07-06 07:42] LABS: BUN/Creatinine Ratio 29.1 (10.0-20.0)
[2024-07-06 07:44] LABS: Blood Urea Nitrogen 53 mg/dL (9-23); Chloride 106 mmol/L (98-107); Glucose 206 mg/dL (74-106); Sodium 137 mmol/L (136-145)
[2024-07-06 07:45] LABS: Calcium 7.4 mg/dL (8.7-10.4)
[2024-07-06] MEDS: ONDANSETRON HCL 4 MG/2 ML VIAL IV PRN (09:07)
[2024-07-06] MEDS: MAALOX PLUS or MAALOX 30 ML PO ONE (10:52)
--- NOTE | 2024-07-06 11:39 | DVHPN2 ---
Progress Note Date Seen: Jul 06, 2024 Medical Necessity Reason Pt with a Central, PICC or Fol: No Subjective Patient reports: No new complaints Other Systems: Patient seen and examined by myself today in follow-up O2 nasal cannula Objective vital signs Vital Sign Date Time Temp Pulse Resp B/P (MAP) Pulse Ox O2 Delivery O2 Flow Rate FiO2 07/06/24 10:00 98 Nasal Cannula 2.0 07/06/24 10:00 28 07/06/24 09:30 103 16 07/06/24 09:00 97.5 126/85 (99) 97.5 Total Intake and Output 07/05/24 07/05/24 07/06/24 15:00 23:00 07:00 Intake Total 42 ml 0 ml 800 ml Balance 42 ml 0 ml 800 ml medications Current Medications Medications Dose Ordered Sig/Antoinette Route Start Time Stop Time Status Last Admin Dose Admin Acetaminophen/ Hydrocodone Bitart 1 tab Q4HP PRN PO 07/04/24 17:00 Hold Ondansetron HCl 4 mg Q4HP PRN IV 07/04/24 17:00 07/06/24 09:07 4 MG Acetaminophen 650 mg Q6HP PRN PO 07/04/24 17:00 Nitroglycerin 0.4 mg Q5MINP PRN SL 07/04/24 17:00 Morphine Sulfate 2 mg Q30M PRN IV 07/04/24 17:00 Hold Piperacillin Sod/ Tazobactam Sod 100 ml @ 25 mls/hr Q12HR IV 07/04/24 22:00 07/06/24 09:07 25 MLS/HR Albuterol 2.5 mg Q4HWA [facility] 07/04/24 18:00 07/06/24 09:23 2.5 MG Ipratropium [place] 0.5 mg Q4HWA [facility] 07/04/24 18:00 07/06/24 09:22 0.5 MG Methylprednisolone Sodium Succinate 60 mg Q8HR IV 07/04/24 22:00 07/06/24 05:33 60 MG Sodium Chloride 1,000 ml @ 75 mls/hr [id number] IV 07/05/24 10:00 07/06/24 01:24 75 MLS/HR Heparin Sodium/ Dextrose 250 ml @ 17 mls/hr [id number] IV 07/06/24 00:30 07/06/24 01:19 17 MLS/HR Examination: LUNGS:Normal, CVS:Normal, MSK:Normal laboratory and microbiology Laboratory Tests 07/06/24 06:24 Test 07/06/24 06:24 Range/Units Serum Glucose 206 H 74-106 mg/dL Microbiology Date/Time Source Procedure Growth Status 07/04/24 15:00 Blood Blood Culture - Preliminary NO GROWTH AFTER 24 HOURS OF INCUBATION. Resulted Problem List/Assessment/Plan Problem List/Assessment/Plan Acute kidney injury superimposed Chronic Kidney Disease secondary hemodynamic mediated Cardiomyopathy NSTEMI History of methamphetamine abuse Sepsis Recommendations Kidney function is improving Output charted Check urine electrolytes Check kidney ultrasound Cardiology consult We will continue to follow up Plan discussed with: Patient LALO ATKINSON MD Jul 06, 2024 11:39
[2024-07-06 12:54] LABS: Magnesium 2.1 mg/dL (1.6-2.6)
[2024-07-06 12:55] LABS: Phosphorus 2.7 mg/dL (2.4-5.1)
--- NOTE | 2024-07-06 13:08 | DVH ---
INDICATION: [place] TECHNIQUE: Multiple real-time sonographic images of the kidneys and bladder were obtained. COMPARISON: None FINDINGS: RIGHT kidney measures 11.5 cm in length. No hydronephrosis. LEFT kidney measures 6.4 cm in length. Atrophic left kidney. Increased echogenicity. No hydronephrosis. No large intraluminal masses are seen in the bladder. IMPRESSION: Atrophic left kidney.
--- NOTE | 2024-07-06 13:12 | DVHPN2 ---
Subjective Overnight events noted patient is feeling little better. Reviewed: Care Plan Changes from previous H/P or p: No Changes Objective Vitals Vital Signs Date Time Temp Pulse Resp B/P (MAP) Pulse Ox O2 Delivery O2 Flow Rate FiO2 07/06/24 10:00 98 Nasal Cannula 2.0 07/06/24 10:00 28 07/06/24 09:30 103 16 07/06/24 09:00 97.5 126/85 (99) 97.5 Intake/Output Intake and Output 07/06/24 07:00 Intake Total 842 ml Balance 842 ml Intake Oral 800 ml IV Total 42 ml # Voids 2 Exam HEENT pupils are reactive Neck is supple CV is S1-S2 regular rate and rhythm Respiratory bilateral basal crackles as well as expiratory wheezes GI positive bowel sound Extremity trace edema [employer] no motor deficit Medications Current Medications Medications Dose Ordered Sig/Antoinette Route Start Time Stop Time Status Last Admin Dose Admin Acetaminophen/ Hydrocodone Bitart 1 tab Q4HP PRN PO 07/04/24 17:00 Hold Ondansetron HCl 4 mg Q4HP PRN IV 07/04/24 17:00 07/06/24 09:07 4 MG Acetaminophen 650 mg Q6HP PRN PO 07/04/24 17:00 Nitroglycerin 0.4 mg Q5MINP PRN SL 07/04/24 17:00 Morphine Sulfate 2 mg Q30M PRN IV 07/04/24 17:00 Hold Piperacillin Sod/ Tazobactam Sod 100 ml @ 25 mls/hr Q12HR IV 07/04/24 22:00 07/06/24 09:07 25 MLS/HR Albuterol 2.5 mg Q4HWA [facility] 07/04/24 18:00 07/06/24 09:23 2.5 MG Ipratropium [place] 0.5 mg Q4HWA [facility] 07/04/24 18:00 07/06/24 09:22 0.5 MG Methylprednisolone Sodium Succinate 60 mg Q8HR IV 07/04/24 22:00 07/06/24 05:33 60 MG Sodium Chloride 1,000 ml @ 75 mls/hr [id number] IV 07/05/24 10:00 07/06/24 01:24 75 MLS/HR Heparin Sodium/ Dextrose 250 ml @ 17 mls/hr [id number] IV 07/06/24 00:30 07/06/24 01:19 17 MLS/HR Famotidine 20 mg Q12HR PO 07/06/24 13:30 UNV Laboratory Results Laboratory Tests 07/06/24 06:24 Chemistry Test 07/06/24 06:24 Calcium Level 7.4 mg/dL (8.7-10.4) L Magnesium Level Pending Phosphorus Level Pending Coagulation Test 07/05/24 16:34 07/05/24 23:17 07/06/24 06:24 Prothrombin Time 14.3 sec (9.3-11.8) H 12.0 sec (9.3-11.8) H 10.7 sec (9.3-11.8) Prothrombin Time INR 1.38 (0.9-1.15) H 1.14 (0.9-1.15) 1.01 (0.9-1.15) Activated Partial Thromboplast Time 37.0 SEC (24.5-34.5) H 34.9 SEC (24.5-34.5) H 51.0 SEC (24.5-34.5) H Urinalysis Test 07/04/24 18:38 Urine Color Yellow (Yellow) Urine Clarity Clear (Clear) Urine pH 5.5 (5.0-9.0) Urine Specific [place] 1.018 (1.001-1.035) Urine Protein 2+ (Negative) H Urine Ketones Negative (Negative) Urine Blood Negative /uL (Negative) Urine Nitrite Negative (Negative) Urine Bilirubin Negative (Negative) Urine Urobilinogen Normal mg/dL (Negative) Urine Leukocyte Esterase Negative /uL (Negative) Urine RBC 1 /hpf (0 - 3) Urine WBC 1 /hpf (0 - 3) Urine Squamous Epithelial Cells Few /hpf (<5) Urine Bacteria None seen /hpf (None Seen) Urine Mucus Few (None Seen) Urine Glucose Normal mg/dL (Normal) Microbiology Microbiology Date/Time Source Procedure Growth Status 07/04/24 15:00 Blood Blood Culture - Preliminary NO GROWTH AFTER 24 HOURS OF INCUBATION. Resulted Assessment/Plan Assessment/Plan 69-year-old male with a known history of COPD, chronic tobacco use disorder, hypertension, initially presented to the hospital with the increasing shortness a breath cough with green phlegm found to have 1. Acute hypoxic respiratory failure secondary to acute COPD exacerbation and bilateral pneumonia 2. Acute COPD exacerbation 3. Bilateral pneumonia 4. NSTEMI 5. Chronic tobacco use disorder 6. Acute kidney injury suspected secondary to vasomotor nephropathy 7. Hypertension -continue IV antibiotics, Solu-Medrol, med nebs, O2 supplementation -continue heparin drip, risks benefits and alternatives of heparin drip including life-threatening bleeding disability explained to the patient in detail who understand verbalized understanding and agreeable to plan. Plan discussed with: Patient My Orders Orders - CARLEEN GUARDADO MD Procedure Category Date Status Time Hepatitis B Surface LAB 07/05/24 In Process Antigen 18:28 Heparin Per Pharmacy [facility] 07/05/24 In Process Protocol 18:29 Heparin Drip/D5w PHA 07/06/24 In Process 100units/Ml 00:30 Complete Blood Count LAB 07/07/24 Verified 04:00 PTPTT LAB 07/06/24 Logged 12:30 Heparin Per Pharmacy [facility] 07/06/24 In Process Protocol 08:39 Famotidine Tablet PHA 07/06/24 Logged (Pepcid Tablet) 13:30 Date of Service: Jul 06, 2024 Billing Provider: CARLEEN GUARDADO MD Common Visit Codes: NOT BILLABLE CARLEEN GUARDADO MD Jul 06, 2024 13:12
[2024-07-06] MEDS: FAMOTIDINE 20 MG TAB PO SCH (13:31)
[2024-07-06 14:49] LABS: INR 0.98 (0.9-1.15); Partial Thromboplastin Time 49.1 SEC (24.5-34.5); Prothrombin Time 10.4 sec (9.3-11.8)
[2024-07-06] MEDS: NITROGLYCERIN 0.4 MG SL TAB SL PRN (15:30)
[2024-07-06] MEDS ORDERED: NITROGLYCERIN 0.4 MG SL TAB SL PRN (15:30)
[2024-07-06 20:37] LABS: Urine Bacteria None Seen /hpf (None Seen)
[2024-07-06 20:45] LABS: Urine Blood Negative /uL (Negative); Urine Clarity Clear (Clear); Urine Color Yellow (Yellow); Urine Protein, UAD 1+ (Negative); Urine Specific Gravity 1.024 (1.001-1.035); Urine Squamous Epithelial Cell None Seen /hpf (<5); Urine Urobilinogen Normal (Negative); Urine WBC <1 /hpf (0 - 3); Urine pH 5.5 (5.0-9.0)
[2024-07-06 20:49] LABS: INR 0.96 (0.9-1.15); Partial Thromboplastin Time 55.7 SEC (24.5-34.5); Prothrombin Time 10.2 sec (9.3-11.8)
[2024-07-06 21:01] LABS: Protein, Urine 68.2 mg/dL (1-14)
[2024-07-06 21:04] LABS: Creatinine, Urine 84.11 mg/dL (30.0-125.0); Creatinine, Urine 86.82 mg/dL (30.0-125.0); Urine Protein/Creatinine Ratio 0.79
--- NOTE | 2024-07-06 22:03 | DVHPN2 ---
Progress Note - Dictate Date Seen: Jul 06, 2024 Medical Necessity Reason Pt with a Central, PICC or Fol: No Subjective Patient seen and examined at bedside. Remains on supplemental oxygen Overnight events reviewed. vital signs Vital Sign Date Time Temp Pulse Resp B/P (MAP) Pulse Ox O2 Delivery O2 Flow Rate FiO2 07/06/24 18:56 95 16 99 07/06/24 18:48 Nasal Cannula* 3 32 07/06/24 17:00 97.8 118/73 (88) 97.8 Total Intake and Output 07/05/24 07/05/24 07/06/24 15:00 23:00 07:00 Intake Total 42 ml 0 ml 800 ml Balance 42 ml 0 ml 800 ml medications Current Medications Medications Dose Ordered Sig/Antoinette Route Start Time Stop Time Status Last Admin Dose Admin Acetaminophen/ Hydrocodone Bitart 1 tab Q4HP PRN PO 07/04/24 17:00 Hold Ondansetron HCl 4 mg Q4HP PRN IV 07/04/24 17:00 07/06/24 21:53 4 MG Acetaminophen 650 mg Q6HP PRN PO 07/04/24 17:00 Nitroglycerin 0.4 mg Q5MINP PRN SL 07/04/24 17:00 07/06/24 15:40 0.4 MG Morphine Sulfate 2 mg Q30M PRN IV 07/04/24 17:00 Hold Piperacillin Sod/ Tazobactam Sod 100 ml @ 25 mls/hr Q12HR IV 07/04/24 22:00 07/06/24 09:07 25 MLS/HR Albuterol 2.5 mg Q4HWA [facility] 07/04/24 18:00 07/06/24 18:48 2.5 MG Ipratropium [place] 0.5 mg Q4HWA [facility] 07/04/24 18:00 07/06/24 18:48 0.5 MG Methylprednisolone Sodium Succinate 60 mg Q8HR IV 07/04/24 22:00 07/06/24 21:53 60 MG Sodium Chloride 1,000 ml @ 75 mls/hr [id number] IV 07/05/24 10:00 07/06/24 12:07 75 MLS/HR Heparin Sodium/ Dextrose 250 ml @ 17 mls/hr [id number] IV 07/06/24 00:30 07/06/24 15:42 17 MLS/HR Famotidine 20 mg DAILY PO 07/06/24 13:30 07/06/24 13:31 20 MG Nitroglycerin 0.4 mg Q5MINP PRN SL 07/06/24 15:30 objective Gen.: Patient lying in bed in no apparent distress. On supplemental oxygen. Head: Normocephalic, atraumatic. Eyes: EOMI/PERRLA. Ears: Normal hearing. Normal anatomy. Neck/trachea: Trachea midline, supple. Nose: Normal external anatomy. Mouth: Moist mucous membranes. Chest: Decreased air entry bilaterally. No wheezing or rhonchi. Cardiovascular: Positive S1, positive S2. Regular rate and rhythm. Abdomen: Positive bowel sounds in all 4 quadrants. Soft, non-tender, non- distended. : Deferred. Rectal: Deferred. Skin: Warm, dry. Intact. Extremities: 2+ radial pulses bilaterally. No lower extremity edema. Neuro: Awake, alert, oriented x3. No gross motor or sensory deficits. Cranial nerves II through XII intact. Gait not assessed. laboratory and microbiology Laboratory Tests 07/06/24 06:24 Test 07/06/24 06:24 Range/Units Serum Glucose 206 H 74-106 mg/dL Assessment/Plan Impression: Acute hypoxic respiratory failure Cough Dyspnea Elevated troponin/NSTEMI DM type II Acute kidney injury. Nicotine dependence Events: Remains on supplemental oxygen, 2 LPM NC Taper O2 as tolerated Improved O2 requirements Continue bronchodilators Continue steroids Continue antibiotics - Zosyn Leukocytosis, WBC 16.2 K - likely reactive. Incentive spirometry Heparin drip. Cardiology recs appreciated. Monitor renal function Creatinine trending down. Renal ultrasound notable for findings of atrophic left kidney. Labs and imaging reviewed. Rest of plan as noted below. Plan: Supplemental oxygen Titrate to keep O2 sats above 92%. Continue bronchodilators. Continue antibiotics IV steroids Incentive spirometry Cardiology was consulted d/t elevated troponin. Nephrology consulted for ANGELA Monitor renal function. Monitor electrolytes. Supplement as necessary. Monitor ins and outs. DVT prophylaxis. Prognosis: Poor given patient's multiple co-morbidities. Rest of plan per hospitalist and other consultants. Thank you Dr. Eldon Maki MD, for allowing me to participate in this patient's care. Further recommendations will depend on the patient's clinical course. Please do not hesitate to contact me if you have any questions or concerns. This medical document was created using an electronic medical record system with [employer] computerized dictation system. Although these documentations are being carefully reviewed, there may still be some phonetic and typographical changes. The errors are purely typographical, due to imperfection on the software program, and do not reflect any compromise in the patient's medical care. Plan discussed with: Patient, Other (SHONNA Cruz) KOKI HANSEN MD Jul 06, 2024 22:03
[2024-07-07] VITALS (18 sets, daily range): BP systolic 134–164; BP diastolic 86–97; PULSE 71–113; RESP 16–20; TEMP 97.3–97.9; O2SAT 91–100
[2024-07-07 07:12] LABS: Basophils # (auto) 0 10 ^3/uL (0-0.2); Basophils % (auto) 0.1 % (0.0-2.0); Eosinophils # (auto) 0 10 ^3/uL (0-0.8); Hematocrit 38.1 % (41.0-53.0); Hemoglobin 13.2 g/dL (13.5-17.5); Lymphocytes # (auto) 0.7 10 ^3/uL (0.4-5.4); Lymphocytes % (auto) 5.8 % (10.0-50.0); Mean Corpuscular Hemoglobin 31.1 pg (28.0-32.0); Mean Corpuscular Hgb Conc. 34.5 g/dL (32.0-36.0); Mean Corpuscular Volume 90.1 fL (80.0-100.0); Monocytes # (auto) 0.7 10 ^3/uL (0-1.3); Monocytes % (auto) 6.1 % (0.0-12.0); Neutrophils # (auto) 10.6 10 ^3/uL (1.6-8.6); Nucleated Red Blood Cells % 0.1 %; Platelet Count (auto) 238 10^3/uL (140-450); Red Blood Cells 4.23 10^6/uL (4.5-5.90); Red Cell Distribution Width 13.8 % (11.8-14.3); White Blood Cell 12.1 10^3/uL (4.4-10.8)
[2024-07-07 07:24] LABS: INR 0.95 (0.9-1.15); Partial Thromboplastin Time 43.6 SEC (24.5-34.5); Prothrombin Time 10.1 sec (9.3-11.8)
[2024-07-07 12:06] LABS: Anti-Nuclear Antibody Direct Negative (Negative)
--- NOTE | 2024-07-07 13:39 | DVHINCON2 ---
Date Seen: Jul 07, [address] Maki Reason for Consultation Shortness of breath History of Present Illness 69-year-old gentleman with a history of drug abuse and congestive heart failure has been having progressive symptoms of shortness of breath with dyspnea on exertion. He was having significant difficulty breathing for which came to the hospital for further evaluation and treatment. If patient is a smoker of about a pack a day and uses methamphetamines daily. Does not abuse alcohol. He smokes about a pack a day. Past Medical History His past medical history significant for atrial fibrillation hypertension hyperlipidemia significant COPD. Family History: FHx: emphysema G8 MOTHER, Allergies: Coded Allergies: Codeine (Verified Allergy, Severe, 10/31/19) Home Meds No Active Prescriptions or Reported Meds Current Medications Current Medications Medications (Trade) Dose Ordered Sig/Antoinette Route PRN Reason Start Time Stop Time Status Last Admin Nitroglycerin (Ntrostat Sublingual) 0.4 mg Q5MINP PRN SL FOR CHEST PAIN 07/06/24 15:30 Review of Systems No fevers chills or weight loss. Cardiac and respiratory as noted above with a history of shortness of breath. GI musculoskeletal endocrine hematologic oncologic negative. Vital Signs Vital Signs Date Time Temp Pulse Resp B/P (MAP) Pulse Ox O2 Delivery O2 Flow Rate FiO2 07/07/24 10:28 91 16 100 07/07/24 10:22 Nasal Cannula* 3 32 07/07/24 09:00 97.3 134/95 (108) 97.3 Physical Exam He is awake alert and oriented. No acute distress. Poorly kept and malodorous. His vital signs are noted. HEENT examination is otherwise unremarkable no jugular distention no bruits. Atraumatic and normocephalic skull. Diminished air entry with bilateral wheezing and prolonged expiratory phase. Heart exam reveals regular S1-S2. 2/6 systolic ejection murmur. Abdominal examination is otherwise unremarkable. Extremities reveal adequate perfusion no clubbing or cyanosis. No significant edema. Neurologically intact. integumentary is normal. EKG shows sinus rhythm right bundle-branch block nonspecific changes Labs/Diagnostic Data EKG shows sinus rhythm right bundle branch block. Atrophic left kidney on ultrasound. Echocardiogram shows an EF of 35% with global hypokinesis. Labs Test 07/07/24 05:45 07/06/24 20:00 07/06/24 06:24 07/05/24 19:03 Range/Units White Blood Count 12.1 #H 4.4-10.8 10^3/uL Red Blood Count 4.23 L 4.5-5.90 10^6/uL Hemoglobin 13.2 L 13.5-17.5 g/dL Hematocrit 38.1 L 41.0-53.0 % Mean Corpuscular Volume 90.1 80.0-100.0 fL Mean Corpuscular Hemoglobin 31.1 28.0-32.0 pg Mean Corpuscular Hemoglobin Concent 34.5 32.0-36.0 g/dL Red Cell Distribution Width 13.8 11.8-14.3 % Platelet Count 238 140-450 10^3/uL Mean Platelet Volume 8.6 6.9-10.8 fL Neutrophils (%) (Auto) 88.0 H 37.0-80.0 % Lymphocytes (%) (Auto) 5.8 L 10.0-50.0 % Monocytes (%) (Auto) 6.1 0.0-12.0 % Eosinophils (%) (Auto) 0.0 0.0-7.0 % Basophils (%) (Auto) 0.1 0.0-2.0 % Neutrophils # (Auto) 10.6 H 1.6-8.6 10 ^3/uL Lymphocytes # (Auto) 0.7 0.4-5.4 10 ^3/uL Monocytes # (Auto) 0.7 0-1.3 10 ^3/uL Eosinophils # (Auto) 0 0-0.8 10 ^3/uL Basophils # (Auto) 0 0-0.2 10 ^3/uL Nucleated Red Blood Cells 0.1 % Prothrombin Time 10.1 9.3-11.8 sec Prothrombin Time INR 0.95 0.9-1.15 Activated Partial Thromboplast Time 43.6 H 24.5-34.5 SEC Urine Color Yellow Yellow Urine Clarity Clear Clear Urine pH 5.5 5.0-9.0 Urine Specific [place] 1.024 1.001-1.035 Urine Protein 1+ H Negative Urine Ketones Negative Negative Urine Blood Negative Negative /uL Urine Nitrite Negative Negative Urine Bilirubin Negative Negative Urine Urobilinogen Normal Negative mg/dL Urine Leukocyte Esterase Negative Negative /uL Urine RBC 1 0 - 3 /hpf Urine WBC <1 0 - 3 /hpf Urine Squamous Epithelial Cells None seen <5 /hpf Urine Bacteria None seen None Seen /hpf Urine Creatinine 86.82 30.0-125.0 mg/dL Urine Protein/Creatinine Ratio 0.79 Urine Sodium 41 40-220 mmol/L Urine Glucose 1+ H Normal mg/dL Urine Total Protein 68.2 H 1-14 mg/dL Sodium Level 137 136-145 mmol/L Potassium Level 4.0 3.5-5.1 mmol/L Chloride Level 106 98-107 mmol/L Carbon Dioxide Level 24 20-31 mmol/L Anion Gap 7 5-15 Blood Urea Nitrogen 53 H 9-23 mg/dL Creatinine 1.82 H 0.700-1.30 mg/dL Glomerular Filtration Rate Calc 39 >90 mL/min BUN/Creatinine Ratio 29.1 H 10.0-20.0 Serum Glucose 206 H 74-106 mg/dL Calcium Level 7.4 L 8.7-10.4 mg/dL Phosphorus Level 2.7 2.4-5.1 mg/dL Magnesium Level 2.1 1.6-2.6 mg/dL Vitamin D 25-Hydroxy 22.6 L 30.0-100 ng/mL Parathyroid Hormone (Intact) 164.1 H 18.4-80.1 pg/mL Troponin I High Sensitivity 433 *H </=54 ng/L Anti-Nuclear Antibody Screen Negative Negative Test 07/05/24 17:51 07/05/24 03:01 07/04/24 18:55 07/04/24 18:38 Range/Units Hepatitis B Surface Antigen Negative Negative Total Bilirubin 1.4 H 0.2-1.0 mg/dL Aspartate Amino Transferase (AST) 26 13-40 U/L Alanine Aminotransferase (ALT) 20 7-40 U/L Alkaline Phosphatase 42 L 46-116 U/L Total Protein 6.6 5.7-8.2 g/dL Albumin 3.4 3.2-4.8 g/dL Differential Total Cells Counted 100.0 100 Neutrophils % (Manual) 50 37.0-80.0 Band Neutrophils % (Manual) 17 Lymphocytes % (Manual) 19 10.0-50.0 Monocytes % (Manual) 10 0-12 Eosinophils % (Manual) 0 0-7 Basophils % (Manual) 0 0.0-2.0 Metamyelocytes % (manual) 0 Myelocytes % (Manual) 0 Promyelocytes % (Manual) 0 Blast Cells % (Manual) 0 Reactive Lymphocytes 4 Platelet Estimate Adequate Urine Mucus Few None Seen Test 07/04/24 17:46 07/04/24 15:00 Range/Units Lactic Acid Level 2.4 *H 0.4-2.0 mmol/L B-Type Natriuretic Peptide 837.83 0-100 pg/mL Microbiology Date/Time Source Procedure Growth Status 07/04/24 15:00 Blood Blood Culture - Preliminary NO GROWTH AFTER 48 HOURS OF INCUBATION. Resulted Assessment Chronic kidney disease. Cardiomyopathy with congestive heart failure with reduced ejection fraction. COPD exacerbation. History of methamphetamine abuse. Hypertension. Probable CAD. Plan/Recommendation We will recommend initiation of Entresto for cardiomyopathy. Cessation of smoking and methamphetamine abuse. Continue conservative medical management for now. We will follow up as outpatient. Continue Entresto Plan discussed with: Patient Date of Service: Jul 07, 2024 Billing Provider: DEIRDRE CASTANON Sr., MD Cardiology Common Codes: [id number] INP/OBS CARE (High) DEIRDRE CASTANON Sr., MD Jul 07, 2024 13:39
--- NOTE | 2024-07-07 13:39 | DVHPN2 ---
Progress Note Date Seen: Jul 07, 2024 Medical Necessity Reason Pt with a Central, PICC or Fol: No Subjective Patient reports: No new complaints Other Systems: Patient seen and examined by myself today in follow-up Objective vital signs Vital Sign Date Time Temp Pulse Resp B/P (MAP) Pulse Ox O2 Delivery O2 Flow Rate FiO2 07/07/24 10:28 91 16 100 07/07/24 10:22 Nasal Cannula* 3 32 07/07/24 09:00 97.3 134/95 (108) 97.3 Total Intake and Output 07/06/24 07/06/24 07/07/24 15:00 23:00 07:00 Intake Total 100 ml 678 ml 500 ml Balance 100 ml 678 ml 500 ml medications Current Medications Medications Dose Ordered Sig/Antoinette Route Start Time Stop Time Status Last Admin Dose Admin Acetaminophen/ Hydrocodone Bitart 1 tab Q4HP PRN PO 07/04/24 17:00 Hold Ondansetron HCl 4 mg Q4HP PRN IV 07/04/24 17:00 07/06/24 21:53 4 MG Acetaminophen 650 mg Q6HP PRN PO 07/04/24 17:00 Nitroglycerin 0.4 mg Q5MINP PRN SL 07/04/24 17:00 07/06/24 15:40 0.4 MG Morphine Sulfate 2 mg Q30M PRN IV 07/04/24 17:00 Hold Piperacillin Sod/ Tazobactam Sod 100 ml @ 25 mls/hr Q12HR IV 07/04/24 22:00 07/07/24 09:36 25 MLS/HR Albuterol 2.5 mg Q4HWA NEB 07/04/24 18:00 07/07/24 10:22 2.5 MG Ipratropium [place] 0.5 mg Q4HWA NEB 07/04/24 18:00 07/07/24 10:22 0.5 MG Methylprednisolone Sodium Succinate 60 mg Q8HR IV 07/04/24 22:00 07/07/24 05:36 60 MG Sodium Chloride 1,000 ml @ 75 mls/hr [id number] IV 07/05/24 10:00 07/06/24 12:07 75 MLS/HR Heparin Sodium/ Dextrose 250 ml @ 17 mls/hr [id number] IV 07/06/24 00:30 07/07/24 08:39 19 MLS/HR Famotidine 20 mg DAILY PO 07/06/24 13:30 07/07/24 09:36 20 MG Nitroglycerin 0.4 mg Q5MINP PRN SL 07/06/24 15:30 Examination: LUNGS:Normal, CVS:Normal, MSK:Normal laboratory and microbiology Laboratory Tests 07/07/24 05:45 07/06/24 06:24 Test 07/06/24 06:24 Range/Units Serum Glucose 206 H 74-106 mg/dL Microbiology Date/Time Source Procedure Growth Status 07/04/24 15:00 Blood Blood Culture - Preliminary NO GROWTH AFTER 48 HOURS OF INCUBATION. Resulted Problem List/Assessment/Plan Problem List/Assessment/Plan Acute kidney injury superimposed Chronic Kidney Disease stage IIIB secondary to hemodynamic mediated. FeNa > 2% Cardiomyopathy NSTEMI History of methamphetamine abuse Atrophic left kidney Right lower lobe pneumonia Recommendations Kidney function is improving No urine output charted IV antibiotics kidney ultrasound reported atrophic left kidney Cardiology consult We will continue to follow up Plan discussed with: Patient LALO ATKINSON MD Jul 07, 2024 13:39
--- NOTE | 2024-07-07 16:51 | DVHPN2 ---
Subjective Overnight events noted patient is feeling 20%-30% better. Reviewed: Care Plan Changes from previous H/P or p: No Changes Objective Vitals Vital Signs Date Time Temp Pulse Resp B/P (MAP) Pulse Ox O2 Delivery O2 Flow Rate FiO2 07/07/24 14:27 92 16 100 07/07/24 14:21 Nasal Cannula 3.0 07/07/24 14:21 32 07/07/24 09:00 97.3 134/95 (108) 97.3 Intake/Output Intake and Output 07/07/24 07:00 Intake Total 1278 ml Balance 1278 ml Intake Oral 1078 ml IV Total 200 ml # Voids 4 Exam HEENT pupils are reactive Neck is supple CV is S1-S2 regular rate and rhythm Respiratory bilateral basal crackles as well as expiratory wheezes GI positive bowel sound Extremity trace edema 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 Medications Current Medications Medications Dose Ordered Sig/Antoinette Route Start Time Stop Time Status Last Admin Dose Admin Acetaminophen/ Hydrocodone Bitart 1 tab Q4HP PRN PO 07/04/24 17:00 Hold Ondansetron HCl 4 mg Q4HP PRN IV 07/04/24 17:00 07/06/24 21:53 4 MG Acetaminophen 650 mg Q6HP PRN PO 07/04/24 17:00 Nitroglycerin 0.4 mg Q5MINP PRN SL 07/04/24 17:00 07/06/24 15:40 0.4 MG Morphine Sulfate 2 mg Q30M PRN IV 07/04/24 17:00 Hold Piperacillin Sod/ Tazobactam Sod 100 ml @ 25 mls/hr Q12HR IV 07/04/24 22:00 07/07/24 09:36 25 MLS/HR Albuterol 2.5 mg Q4HWA NEB 07/04/24 18:00 07/07/24 14:21 2.5 MG Ipratropium [place] 0.5 mg Q4HWA NEB 07/04/24 18:00 07/07/24 14:21 0.5 MG Methylprednisolone Sodium Succinate 60 mg Q8HR IV 07/04/24 22:00 07/07/24 14:30 60 MG Sodium Chloride 1,000 ml @ 75 mls/hr [id number] IV 07/05/24 10:00 07/07/24 15:20 75 MLS/HR Heparin Sodium/ Dextrose 250 ml @ 17 mls/hr [id number] IV 07/06/24 00:30 07/07/24 08:39 19 MLS/HR Famotidine 20 mg DAILY PO 07/06/24 13:30 07/07/24 09:36 20 MG Nitroglycerin 0.4 mg Q5MINP PRN SL 07/06/24 15:30 Sacubitril/ Valsartan 1 tab BID PO 07/07/24 22:00 Laboratory Results Laboratory Tests 07/06/24 06:24 07/07/24 05:45 Coagulation Test 07/06/24 20:13 07/07/24 05:45 07/07/24 15:08 Prothrombin Time 10.2 sec (9.3-11.8) 10.1 sec (9.3-11.8) Pending Prothrombin Time INR 0.96 (0.9-1.15) 0.95 (0.9-1.15) Pending Activated Partial Thromboplast Time 55.7 SEC (24.5-34.5) H 43.6 SEC (24.5-34.5) H Pending Urinalysis Test 07/04/24 18:38 07/06/24 20:00 Urine Mucus Few (None Seen) Urine Color Yellow (Yellow) Urine Clarity Clear (Clear) Urine pH 5.5 (5.0-9.0) Urine Specific [place] 1.024 (1.001-1.035) Urine Protein 1+ (Negative) H Urine Ketones Negative (Negative) Urine Blood Negative /uL (Negative) Urine Nitrite Negative (Negative) Urine Bilirubin Negative (Negative) Urine Urobilinogen Normal mg/dL (Negative) Urine Leukocyte Esterase Negative /uL (Negative) Urine RBC 1 /hpf (0 - 3) Urine WBC <1 /hpf (0 - 3) Urine Squamous Epithelial Cells None seen /hpf (<5) Urine Bacteria None seen /hpf (None Seen) Urine Creatinine 86.82 mg/dL (30.0-125.0) Urine Protein/Creatinine Ratio 0.79 Urine Sodium 41 mmol/L (40-220) Urine Glucose 1+ mg/dL (Normal) H Urine Total Protein 68.2 mg/dL (1-14) H Microbiology Microbiology Date/Time Source Procedure Growth Status 07/04/24 15:00 Blood Blood Culture - Preliminary NO GROWTH AFTER 72 HOURS OF INCUBATION. Resulted Assessment/Plan Assessment/Plan 69-year-old male with a known history of COPD, chronic tobacco use disorder, hypertension, initially presented to the hospital with the increasing shortness a breath cough with green phlegm found to have 1. Acute hypoxic respiratory failure secondary to acute COPD exacerbation and bilateral pneumonia 2. Acute COPD exacerbation 3. Bilateral pneumonia 4. NSTEMI 5. Chronic tobacco use disorder 6. Acute kidney injury suspected secondary to vasomotor nephropathy 7. Hypertension -continue IV antibiotics, Solu-Medrol, med nebs, O2 supplementation -continue heparin drip, risks benefits and alternatives of heparin drip including life-threatening bleeding disability explained to the patient in detail who understand verbalized understanding and agreeable to plan. Plan discussed with: Patient My Orders Orders - CARLEEN GUARDADO MD Procedure Category Date Status Time PTPTT LAB 07/07/24 In Process 14:45 Communication Order ORDERS 07/07/24 Transmitted 14:51 Date of Service: Jul 07, 2024 Billing Provider: CARLEEN GUARDADO MD Common Visit Codes: NOT BILLABLE CARLEEN GUARDADO MD Jul 07, 2024 16:51
[2024-07-07 17:26] LABS: INR 0.98 (0.9-1.15); Partial Thromboplastin Time 69.8 SEC (24.5-34.5); Prothrombin Time 10.4 sec (9.3-11.8)
--- NOTE | 2024-07-07 21:22 | DVHPN2 ---
Progress Note - Dictate Date Seen: Jul 07, 2024 Medical Necessity Reason Pt with a Central, PICC or Fol: No Subjective Patient seen and examined at bedside. Remains on supplemental oxygen Overnight events reviewed. vital signs Vital Sign Date Time Temp Pulse Resp B/P (MAP) Pulse Ox O2 Delivery O2 Flow Rate FiO2 07/07/24 21:00 97.9 97 18 164/97 (119) 98 97.9 07/07/24 18:59 3.0 07/07/24 18:16 Nasal Cannula 07/07/24 18:16 32 Total Intake and Output 07/06/24 07/06/24 07/07/24 15:00 23:00 07:00 Intake Total 100 ml 678 ml 500 ml Balance 100 ml 678 ml 500 ml medications Current Medications Medications Dose Ordered Sig/Antoinette Route Start Time Stop Time Status Last Admin Dose Admin Acetaminophen/ Hydrocodone Bitart 1 tab Q4HP PRN PO 07/04/24 17:00 Hold Ondansetron HCl 4 mg Q4HP PRN IV 07/04/24 17:00 07/06/24 21:53 4 MG Acetaminophen 650 mg Q6HP PRN PO 07/04/24 17:00 Nitroglycerin 0.4 mg Q5MINP PRN SL 07/04/24 17:00 07/06/24 15:40 0.4 MG Morphine Sulfate 2 mg Q30M PRN IV 07/04/24 17:00 Hold Piperacillin Sod/ Tazobactam Sod 100 ml @ 25 mls/hr Q12HR IV 07/04/24 22:00 07/07/24 09:36 25 MLS/HR Albuterol 2.5 mg Q4HWA NEB 07/04/24 18:00 07/07/24 18:15 2.5 MG Ipratropium [place] 0.5 mg Q4HWA NEB 07/04/24 18:00 07/07/24 18:16 0.5 MG Methylprednisolone Sodium Succinate 60 mg Q8HR IV 07/04/24 22:00 07/07/24 14:30 60 MG Sodium Chloride 1,000 ml @ 75 mls/hr [id number] IV 07/05/24 10:00 07/07/24 15:20 75 MLS/HR Famotidine 20 mg DAILY PO 07/06/24 13:30 07/07/24 09:36 20 MG Nitroglycerin 0.4 mg Q5MINP PRN SL 07/06/24 15:30 Sacubitril/ Valsartan 1 tab BID PO 07/07/24 22:00 objective Gen.: Patient lying in bed in no apparent distress. On supplemental oxygen. Head: Normocephalic, atraumatic. Eyes: EOMI/PERRLA. Ears: Normal hearing. Normal anatomy. Neck/trachea: Trachea midline, supple. Nose: Normal external anatomy. Mouth: Moist mucous membranes. Chest: Decreased air entry bilaterally. Bilateral wheezing. No rhonchi. Cardiovascular: Positive S1, positive S2. Regular rate and rhythm. Abdomen: Positive bowel sounds in all 4 quadrants. Soft, non-tender, non- distended. : Deferred. Rectal: Deferred. Skin: Warm, dry. Intact. Extremities: 2+ radial pulses bilaterally. No lower extremity edema. Neuro: Awake, alert, oriented x3. No gross motor or sensory deficits. Cranial nerves II through XII intact. Gait not assessed. laboratory and microbiology Laboratory Tests 07/07/24 05:45 07/06/24 06:24 Test 07/06/24 06:24 Range/Units Serum Glucose 206 H 74-106 mg/dL Assessment/Plan Impression: Acute hypoxic respiratory failure Cough Dyspnea Elevated troponin/NSTEMI DM type II Acute kidney injury. Nicotine dependence Events: Remains on supplemental oxygen, 3 LPM NC Taper O2 as tolerated Continue bronchodilators Continue steroids Continue antibiotics - Zosyn Leukocytosis, WBC trending down- 16.2 K --> 12.1 K Incentive spirometry Wheezing improving. Heparin drip. Follow up Cardiology recommendations. Echo reviewed; shows an EF of 35% with global hypokinesis Monitor renal function Creatinine trending down. Renal ultrasound notable for findings of atrophic left kidney. Labs and imaging reviewed. Rest of plan as noted below. Plan: Supplemental oxygen Titrate to keep O2 sats above 92%. Continue bronchodilators. Continue antibiotics IV steroids Incentive spirometry Cardiology was consulted d/t elevated troponin. Nephrology consulted for ANGELA Monitor renal function. Monitor electrolytes. Supplement as necessary. Monitor ins and outs. DVT prophylaxis. Prognosis: Poor given patient's multiple co-morbidities. Rest of plan per hospitalist and other consultants. Thank you Dr. Eldon Maki MD, for allowing me to participate in this patient's care. Further recommendations will depend on the patient's clinical course. Please do not hesitate to contact me if you have any questions or concerns. This medical document was created using an electronic medical record system with [employer] dictation system. Although these documentations are being carefully reviewed, there may still be some phonetic and typographical changes. The errors are purely typographical, due to imperfection on the software program, and do not reflect any compromise in the patient's medical care. Plan discussed with: Patient, Other (SHONNA Taylor) KOKI HANSEN MD Jul 07, 2024 21:22
[2024-07-07] MEDS: SACUBITRIL-VALSARTAN 24mg/26mg TAB PO SCH (22:23)
[2024-07-08] VITALS (18 sets, daily range): BP systolic 140–153; BP diastolic 71–95; PULSE 61–99; RESP 16–19; TEMP 97.7–98.4; O2SAT 91–100
[2024-07-08 03:06] LABS: Complement C3 94 mg/dL (82-167)
[2024-07-08 11:06] LABS: Antimyeloperoxidase (MPO) Ab <0.2 units (0.0-0.9); Antiproteinase 3 (PR-3) Ab <0.2 units (0.0-0.9)
--- NOTE | 2024-07-08 14:32 | DVHPN2 ---
Progress Note Date Seen: Jul 08, 2024 Medical Necessity Reason Pt with a Central, PICC or Fol: No Subjective Review of Systems No new complaints. Patient reports: No new complaints Objective vital signs Vital Sign Date Time Temp Pulse Resp B/P (MAP) Pulse Ox O2 Delivery O2 Flow Rate FiO2 07/08/24 14:17 94 18 99 07/08/24 14:11 Nasal Cannula* 2 28 07/08/24 12:49 97.8 153/79 (103) 97.8 Total Intake and Output 07/07/24 07/07/24 07/08/24 15:00 23:00 07:00 Intake Total 100 ml 725 ml 800 ml Output Total 650 ml Balance 100 ml 725 ml 150 ml medications Current Medications Medications Dose Ordered Sig/Antoinette Route Start Time Stop Time Status Last Admin Dose Admin Acetaminophen/ Hydrocodone Bitart 1 tab Q4HP PRN PO 07/04/24 17:00 Hold Ondansetron HCl 4 mg Q4HP PRN IV 07/04/24 17:00 07/06/24 21:53 4 MG Acetaminophen 650 mg Q6HP PRN PO 07/04/24 17:00 Nitroglycerin 0.4 mg Q5MINP PRN SL 07/04/24 17:00 07/06/24 15:40 0.4 MG Morphine Sulfate 2 mg Q30M PRN IV 07/04/24 17:00 Hold Piperacillin Sod/ Tazobactam Sod 100 ml @ 25 mls/hr Q12HR IV 07/04/24 22:00 07/08/24 10:00 25 MLS/HR Albuterol 2.5 mg Q4HWA NEB 07/04/24 18:00 07/08/24 14:11 2.5 MG Ipratropium [place] 0.5 mg Q4HWA NEB 07/04/24 18:00 07/08/24 14:11 0.5 MG Methylprednisolone Sodium Succinate 60 mg Q8HR IV 07/04/24 22:00 07/08/24 06:31 60 MG Sodium Chloride 1,000 ml @ 75 mls/hr [id number] IV 07/05/24 10:00 07/07/24 15:20 75 MLS/HR Famotidine 20 mg DAILY PO 07/06/24 13:30 07/08/24 10:00 20 MG Nitroglycerin 0.4 mg Q5MINP PRN SL 07/06/24 15:30 Sacubitril/ Valsartan 1 tab BID PO 07/07/24 22:00 07/08/24 10:04 1 TAB Examination Gen: Appears stated age, in no acute distress Pulm: Bilateral air entry, no rales. CV: RRR, normal S1 and S2 Ext: No edema noted. Neuro: AOx4 laboratory and microbiology Laboratory Tests 07/07/24 05:45 07/06/24 06:24 Test 07/06/24 06:24 Range/Units Serum Glucose 206 H 74-106 mg/dL Microbiology Date/Time Source Procedure Growth Status 07/04/24 15:00 Blood Blood Culture - Preliminary NO GROWTH AFTER 72 HOURS OF INCUBATION. Resulted Labs and/or images reviewed: Labs reviewed by me Problem List/Assessment/Plan Problem List/Assessment/Plan IMP Acute kidney injury superimposed Chronic Kidney Disease stage IIIB secondary to hemodynamic mediated. FeNa > 2%-ongoing pending labs. reviewed labs from 07/06 Cardiomyopathy NSTEMI History of methamphetamine abuse Atrophic left kidney Right lower lobe pneumonia- IV abx REC Serial chemistry panels Avoidance of nephrotoxins including NSAIDs. Avoidance of contrast if able. Acceptable urine output May continue IV antibiotics Strict I&Os Will continue to follow Plan discussed with: Patient My Orders My Orders Orders - CIRO FUENTES Procedure Category Date Status Time Basic Metabolic Panel LAB 07/08/24 Logged 12:50 Basic Metabolic Panel LAB 07/09/24 Verified 04:00 CIRO FUENTES Jul 08, 2024 14:32
[2024-07-08] MEDS: LISINOPRIL 5 MG TAB PO ONE (15:11)
[2024-07-08 15:37] LABS: Chloride 103 mmol/L (98-107); Potassium 4.4 mmol/L (3.5-5.1)
[2024-07-08 15:38] LABS: Anion Gap 8 (5-15); Calcium 8.7 mg/dL (8.7-10.4); Carbon Dioxide 21 mmol/L (20-31)
[2024-07-08 15:43] LABS: BUN/Creatinine Ratio 22.9 (10.0-20.0)
--- NOTE | 2024-07-08 15:50 | DVHPN2 ---
Subjective ZOSYN PATIENT DENIES ANY CHEST PAIN BUT BLOOD PRESSURE IS UNCONTROLLED. Reviewed: Care Plan Changes from previous H/P or p: No Changes Objective Vitals Vital Signs Date Time Temp Pulse Resp B/P (MAP) Pulse Ox O2 Delivery O2 Flow Rate FiO2 07/08/24 15:11 153/79 07/08/24 14:17 94 18 99 07/08/24 14:11 Nasal Cannula* 2 28 07/08/24 12:49 97.8 97.8 Intake/Output Intake and Output 07/08/24 07:00 Intake Total 1625 ml Output Total 650 ml Balance 975 ml Intake Oral 1425 ml IV Total 200 ml Output Urine Total 650 ml # Voids 3 Exam HEENT pupils are reactive Neck is supple CV is S1-S2 regular rate and rhythm Respiratory bilateral basal crackles as well as expiratory wheezes GI positive bowel sound Extremity trace edema MONOTYPER no motor deficit Medications Current Medications Medications Dose Ordered Sig/Antoinette Route Start Time Stop Time Status Last Admin Dose Admin Acetaminophen/ Hydrocodone Bitart 1 tab Q4HP PRN PO 07/04/24 17:00 Hold Ondansetron HCl 4 mg Q4HP PRN IV 07/04/24 17:00 07/06/24 21:53 4 MG Acetaminophen 650 mg Q6HP PRN PO 07/04/24 17:00 Nitroglycerin 0.4 mg Q5MINP PRN SL 07/04/24 17:00 07/06/24 15:40 0.4 MG Morphine Sulfate 2 mg Q30M PRN IV 07/04/24 17:00 Hold Piperacillin Sod/ Tazobactam Sod 100 ml @ 25 mls/hr Q12HR IV 07/04/24 22:00 07/08/24 10:00 25 MLS/HR Albuterol 2.5 mg Q4HWA NEB 07/04/24 18:00 07/08/24 14:11 2.5 MG Ipratropium [place] 0.5 mg Q4HWA NEB 07/04/24 18:00 07/08/24 14:11 0.5 MG Methylprednisolone Sodium Succinate 60 mg Q8HR IV 07/04/24 22:00 07/08/24 14:45 60 MG Sodium Chloride 1,000 ml @ 75 mls/hr [id number] IV 07/05/24 10:00 07/07/24 15:20 75 MLS/HR Famotidine 20 mg DAILY PO 07/06/24 13:30 07/08/24 10:00 20 MG Nitroglycerin 0.4 mg Q5MINP PRN SL 07/06/24 15:30 Sacubitril/ Valsartan 1 tab BID PO 07/07/24 22:00 07/08/24 10:04 1 TAB Metoprolol Tartrate 25 mg BID PO 07/08/24 22:00 Lisinopril 10 mg BID PO 07/08/24 22:00 Laboratory Results Laboratory Tests 07/07/24 05:45 Chemistry Test 07/08/24 15:00 Calcium Level Pending Urinalysis Test 07/04/24 18:38 07/06/24 20:00 Urine Mucus Few (None Seen) Urine Color Yellow (Yellow) Urine Clarity Clear (Clear) Urine pH 5.5 (5.0-9.0) Urine Specific [place] 1.024 (1.001-1.035) Urine Protein 1+ (Negative) H Urine Ketones Negative (Negative) Urine Blood Negative /uL (Negative) Urine Nitrite Negative (Negative) Urine Bilirubin Negative (Negative) Urine Urobilinogen Normal mg/dL (Negative) Urine Leukocyte Esterase Negative /uL (Negative) Urine RBC 1 /hpf (0 - 3) Urine WBC <1 /hpf (0 - 3) Urine Squamous Epithelial Cells None seen /hpf (<5) Urine Bacteria None seen /hpf (None Seen) Urine Creatinine 86.82 mg/dL (30.0-125.0) Urine Protein/Creatinine Ratio 0.79 Urine Sodium 41 mmol/L (40-220) Urine Glucose 1+ mg/dL (Normal) H Urine Total Protein 68.2 mg/dL (1-14) H Microbiology Microbiology Date/Time Source Procedure Growth Status 07/04/24 15:00 Blood Blood Culture - Preliminary NO GROWTH AFTER 72 HOURS OF INCUBATION. Resulted Assessment/Plan Assessment/Plan 69-year-old male with a known history of COPD, chronic tobacco use disorder, hypertension, initially presented to the hospital with the increasing shortness a breath cough with green phlegm found to have 1. Acute hypoxic respiratory failure secondary to acute COPD exacerbation and bilateral pneumonia 2. Acute COPD exacerbation 3. Bilateral pneumonia 4. NSTEMI, HEPARIN DRIP HAS BEEN DISCONTINUED, MEDICAL MANAGEMENT PER CARDIOLOGY 5. Chronic tobacco use disorder 6. Acute kidney injury suspected secondary to vasomotor nephropathy 7. Hypertension UNCONTROLLED -ADD BETA JUD, RESUME LISINOPRIL ONE, RECHECK BMP IN THE MORNING -continue IV antibiotics, Solu-Medrol, med nebs, O2 supplementation -CONTINUE ENTRESTO. Plan discussed with: Patient, Other My Orders Orders - CARLEEN GUARDADO MD Procedure Category Date Status Time Metoprolol Tartrate PHA 07/08/24 In Process Tablet (Lopressor Ta 22:00 Lisinopril Tablet PHA 07/08/24 In Process (Zestril Tablet) 22:00 Date of Service: Jul 08, 2024 Billing Provider: CARLEEN GUARDADO MD Common Visit Codes: NOT BILLABLE CARLEEN GUARDADO MD Jul 08, 2024 15:50
[2024-07-08 15:57] LABS: Sodium 132 mmol/L (136-145)
[2024-07-08 15:58] LABS: Blood Urea Nitrogen 43 mg/dL (9-23); Glucose 527 mg/dL (74-106)
[2024-07-08] MEDS ORDERED: DEXTROSE (50%) 50ML SYRG IV PRN (16:15)
[2024-07-08] MEDS: ACCU-CHEK COMFORT CURVE STRIP VI SCH (17:12)
[2024-07-08] MEDS: InsuLIN REG 1unit/0.01ml Soln (100units/ml) SC SCH ×2 (17:25→21:32)
[2024-07-08] MEDS: hydrALAZINE HCL 20 MG/ML VL IV PRN (18:45)
[2024-07-08] MEDS: METOPROLOL TARTRATE 25 MG TAB PO SCH (21:22)
[2024-07-08] MEDS: LISINOPRIL 5 MG TAB PO SCH (21:22)
--- NOTE | 2024-07-08 21:24 | DVHPN2 ---
Progress Note - Dictate Date Seen: Jul 08, 2024 Medical Necessity Reason Pt with a Central, PICC or Fol: No Subjective Patient seen and examined at bedside. Remains on supplemental oxygen Overnight events reviewed. vital signs Vital Sign Date Time Temp Pulse Resp B/P (MAP) Pulse Ox O2 Delivery O2 Flow Rate FiO2 07/08/24 21:00 98.0 94 19 140/79 (99) 92 98.0 07/08/24 20:00 Nasal Cannula* 2 28 Total Intake and Output 07/07/24 07/07/24 07/08/24 15:00 23:00 07:00 Intake Total 100 ml 725 ml 800 ml Output Total 650 ml Balance 100 ml 725 ml 150 ml medications Current Medications Medications Dose Ordered Sig/Antoinette Route Start Time Stop Time Status Last Admin Dose Admin Acetaminophen/ Hydrocodone Bitart 1 tab Q4HP PRN PO 07/04/24 17:00 Hold Ondansetron HCl 4 mg Q4HP PRN IV 07/04/24 17:00 07/06/24 21:53 4 MG Acetaminophen 650 mg Q6HP PRN PO 07/04/24 17:00 Nitroglycerin 0.4 mg Q5MINP PRN SL 07/04/24 17:00 07/06/24 15:40 0.4 MG Morphine Sulfate 2 mg Q30M PRN IV 07/04/24 17:00 Hold Piperacillin Sod/ Tazobactam Sod 100 ml @ 25 mls/hr Q12HR IV 07/04/24 22:00 07/08/24 10:00 25 MLS/HR Albuterol 2.5 mg Q4HWA [facility] 07/04/24 18:00 07/08/24 18:11 2.5 MG Ipratropium [place] 0.5 mg Q4HWA [facility] 07/04/24 18:00 07/08/24 18:11 0.5 MG Sodium Chloride 1,000 ml @ 75 mls/hr [id number] IV 07/05/24 10:00 07/07/24 15:20 75 MLS/HR Famotidine 20 mg DAILY PO 07/06/24 13:30 07/08/24 10:00 20 MG Nitroglycerin 0.4 mg Q5MINP PRN SL 07/06/24 15:30 Sacubitril/ Valsartan 1 tab BID PO 07/07/24 22:00 07/08/24 10:04 1 TAB Metoprolol Tartrate 25 mg BID PO 07/08/24 22:00 Lisinopril 10 mg BID PO 07/08/24 22:00 Diagnostic Test (Pha) 1 strip ACHS 07/08/24 17:00 07/08/24 17:12 1 STRIP Insulin Human Regular HS SC 07/08/24 22:00 Insulin Human Regular AC SC 07/08/24 17:00 07/08/24 17:25 15 UNITS Dextrose 50 ml UD PRN IV 07/08/24 16:15 Methylprednisolone Sodium Succinate 40 mg Q12HR IV 07/09/24 10:00 Insulin Glargine 20 units DAILY@2200 SC 07/08/24 22:00 Hydralazine HCl 10 mg Q6HP PRN IV 07/08/24 18:15 07/08/24 18:45 10 MG objective Gen.: Patient lying in bed in no apparent distress. On supplemental oxygen. Head: Normocephalic, atraumatic. Eyes: EOMI/PERRLA. Ears: Normal hearing. Normal anatomy. Neck/trachea: Trachea midline, supple. Nose: Normal external anatomy. Mouth: Moist mucous membranes. Chest: Decreased air entry bilaterally. Bilateral wheezing. No rhonchi. Cardiovascular: Positive S1, positive S2. Regular rate and rhythm. Abdomen: Positive bowel sounds in all 4 quadrants. Soft, non-tender, non- distended. : Deferred. Rectal: Deferred. Skin: Warm, dry. Intact. Extremities: 2+ radial pulses bilaterally. No lower extremity edema. Neuro: Awake, alert, oriented x3. No gross motor or sensory deficits. Cranial nerves II through XII intact. Gait not assessed. laboratory and microbiology Laboratory Tests 07/08/24 15:00 07/07/24 05:45 Test 07/08/24 15:00 Range/Units Serum Glucose 527 #*H 74-106 mg/dL Assessment/Plan Impression: Acute hypoxic respiratory failure Cough Dyspnea Elevated troponin/NSTEMI DM type II Acute kidney injury. Nicotine dependence Events: Remains on supplemental oxygen, 2 LPM NC Taper O2 as tolerated Continue bronchodilators Continue steroids Continue antibiotics - Zosyn Incentive spirometry Wheezing improving. Cardiology recommendations appreciated. Echo reviewed; shows an EF of 35% with global hypokinesis Monitor renal function Monitor electrolytes. Supplement as necessary. Renal ultrasound notable for findings of atrophic left kidney. Pepcid for heartburn. CPAP PRN due to ANTONIO - EPAP 8 cm H2O; RT can titrate to minimize apneic episodes. Labs and imaging reviewed. Rest of plan as noted below. Plan: Supplemental oxygen Titrate to keep O2 sats above 92%. Continue bronchodilators. Continue antibiotics IV steroids Incentive spirometry Cardiology was consulted d/t elevated troponin. Nephrology consulted for ANGELA Monitor renal function. Monitor electrolytes. Supplement as necessary. Monitor ins and outs. DVT prophylaxis. Prognosis: Poor given patient's multiple co-morbidities. Rest of plan per hospitalist and other consultants. Thank you Dr. Eldon Maki MD, for allowing me to participate in this patient's care. Further recommendations will depend on the patient's clinical course. Please do not hesitate to contact me if you have any questions or concerns. This medical document was created using an electronic medical record system with [facility] dictation system. Although these documentations are being carefully reviewed, there may still be some phonetic and typographical changes. The errors are purely typographical, due to imperfection on the software program, and do not reflect any compromise in the patient's medical care. Plan discussed with: Patient, Other (SHONNA Taylor) KOKI HANSEN MD Jul 08, 2024 21:24
[2024-07-08] MEDS: INSULIN LANTUS (GLARGINE) 1 /0.01ml (100units/ml) SC SCH (21:32)
[2024-07-09 01:00] VITALS: BP 133/83; PULSE 91; RESP 19; TEMP 98; O2SAT 93
[2024-07-09] MEDS: ACETAMINOPHEN 325 MG TAB PO PRN (03:09)
[2024-07-09 05:00] VITALS: BP 129/77; PULSE 56; RESP 17; TEMP 97.4; O2SAT 95
[2024-07-09 06:41] LABS: Chloride 107 mmol/L (98-107); Potassium 4.4 mmol/L (3.5-5.1); Sodium 139 mmol/L (136-145)
[2024-07-09 06:42] LABS: Anion Gap 7 (5-15); Calcium 8.9 mg/dL (8.7-10.4); Carbon Dioxide 25 mmol/L (20-31)
[2024-07-09 06:47] LABS: BUN/Creatinine Ratio 29.9 (10.0-20.0)
[2024-07-09 07:27] VITALS: PULSE 89; RESP 16; O2SAT 94
[2024-07-09 07:33] VITALS: PULSE 86; RESP 16; O2SAT 99
[2024-07-09 08:00] VITALS: PULSE 80; O2SAT 92
[2024-07-09 08:22] LABS: Blood Urea Nitrogen 49 mg/dL (9-23); Glucose 182 mg/dL (74-106)
[2024-07-09] MEDS ORDERED: methylPREDNISolone SOD SUCC 40 MG/ML VL IV SCH (10:00)
[2024-07-09 16:06] LABS: Cytoplasmic (C-ANCA) <1:20 titer (Neg:<1:20); Perinuclear (P-ANCA) <1:20 titer (Neg:<1:20)
--- NOTE | 2024-07-09 23:02 | DVHPN2 ---
Progress Note - Dictate Date Seen: Jul 09, 2024 Medical Necessity Reason Pt with a Central, PICC or Fol: No Subjective Patient seen and examined at bedside. Remains on supplemental oxygen Overnight events reviewed. vital signs Vital Sign Date Time Temp Pulse Resp B/P (MAP) Pulse Ox O2 Delivery O2 Flow Rate FiO2 07/09/24 08:00 80 92 Room Air* 0 N/A Nasal Cannula* 07/09/24 07:33 16 07/09/24 05:00 97.4 129/77 (94) 97.4 Total Intake and Output 07/08/24 07/08/24 07/09/24 15:00 23:00 07:00 Intake Total 899 ml 1100 ml Balance 899 ml 1100 ml objective Gen.: Patient lying in bed in no apparent distress. On supplemental oxygen. Head: Normocephalic, atraumatic. Eyes: EOMI/PERRLA. Ears: Normal hearing. Normal anatomy. Neck/trachea: Trachea midline, supple. Nose: Normal external anatomy. Mouth: Moist mucous membranes. Chest: Decreased air entry bilaterally. Bilateral wheezing. No rhonchi. Cardiovascular: Positive S1, positive S2. Regular rate and rhythm. Abdomen: Positive bowel sounds in all 4 quadrants. Soft, non-tender, non- distended. : Deferred. Rectal: Deferred. Skin: Warm, dry. Intact. Extremities: 2+ radial pulses bilaterally. No lower extremity edema. Neuro: Awake, alert, oriented x3. No gross motor or sensory deficits. Cranial nerves II through XII intact. Gait not assessed. laboratory and microbiology Laboratory Tests 07/09/24 06:01 07/07/24 05:45 Test 07/09/24 06:01 Range/Units Serum Glucose 182 #H 74-106 mg/dL Assessment/Plan Impression: Acute hypoxic respiratory failure Cough Dyspnea Elevated troponin/NSTEMI DM type II Acute kidney injury. Nicotine dependence Events: Remains on supplemental oxygen, 2 LPM NC Taper O2 as tolerated Continue bronchodilators Continue steroids Continue antibiotics - Zosyn Incentive spirometry Disposition per hospitalist. Pepcid for heartburn. CPAP PRN due to ANTONIO - EPAP 8 cm H2O; RT can titrate to minimize apneic episodes. Labs and imaging reviewed. Rest of plan as noted below. Plan: Supplemental oxygen Titrate to keep O2 sats above 92%. Continue bronchodilators. Continue antibiotics IV steroids Incentive spirometry Cardiology was consulted d/t elevated troponin. Nephrology consulted for ANGELA Cardiology recommendations appreciated. Echo reviewed; shows an EF of 35% with global hypokinesis Monitor renal function. Monitor electrolytes. Supplement as necessary. Monitor ins and outs. Renal ultrasound notable for findings of atrophic left kidney. DVT prophylaxis. Prognosis: Poor given patient's multiple co-morbidities. Rest of plan per hospitalist and other consultants. Thank you Dr. Eldon Maki MD, for allowing me to participate in this patient's care. Further recommendations will depend on the patient's clinical course. Please do not hesitate to contact me if you have any questions or concerns. This medical document was created using an electronic medical record system with [employer] computerized dictation system. Although these documentations are being carefully reviewed, there may still be some phonetic and typographical changes. The errors are purely typographical, due to imperfection on the software program, and do not reflect any compromise in the patient's medical care. Plan discussed with: Patient, Other (SHONNA Taylor) KOKI HANSEN MD Jul 09, 2024 23:02
--- NOTE | 2024-07-13 14:02 | ECG ---
[facility] Test Date: 2024-07-06 Test Time: 15:27:24 Pat Name: LESLEY ABEBE Department: Respiratoy Room: 0293T B Gender: M Colleter: : 1955 Requested By: DEIRDRE CASTANON Order Number: [id number] Reading MD: Faby Clayton Measurements Intervals [place] Rate: 94 P: 74 [place]: 132 QRS: 75 QRSD: 89 T: 55 QT: 381 QTc: 477 Interpretive Statements Sinus rhythm Consider left ventricular hypertrophy Borderline prolonged QT interval Electronically Signed On 07-13-2024 19:00:01 PST by Faby Clayton Please click the below link to view image of tracing.
--- NOTE | 2024-07-13 14:03 | ECG ---
[facility] Test Date: 2024-07-06 Test Time: 15:30:12 Pat Name: LESLEY ABEBE Department: Respiratoy Room: 0293T B Gender: M Wool Spotter: : 1955 Requested By: DEIRDRE CASTANON Order Number: [id number] Reading MD: Faby Clayton Measurements Intervals [place] Rate: 93 P: 73 [place]: 127 QRS: 75 QRSD: 89 T: 54 QT: 389 QTc: 484 Interpretive Statements Sinus rhythm Consider left ventricular hypertrophy Borderline prolonged QT interval Electronically Signed On 07-13-2024 19:00:10 PST by Faby Clayton Please click the below link to view image of tracing.
== END 2024-07-09 08:10 | disposition left against medical advice (07) | DRG 280 ==
LOC: EDBD 13:50 → ER 13:53 → TELE 16:56 → TELE-WESTW 07-05 15:55
PROVIDERS: ADMIT Internal Medicine; ATTEND Internal Medicine
PROC: 5A09357 Assistance with Respiratory Ventilation, Less than 24 Consecutive Hours, Continuous Positive Airway Pressure (ICD-10-PCS; principal; 2024-07-08)
DX: I21.4 Non-ST elevation (NSTEMI) myocardial infarction (principal); J15.69 Pneumonia due to other Gram-negative bacteria; J96.01 Acute respiratory failure with hypoxia; N17.0 Acute kidney failure with tubular necrosis; J15.9 Unspecified bacterial pneumonia; J44.0 Chronic obstructive pulmonary disease with (acute) lower respiratory infection; J44.1 Chronic obstructive pulmonary disease with (acute) exacerbation; I13.0 Hypertensive heart and chronic kidney disease with heart failure and stage 1 through stage 4 chronic kidney disease, or unspecified chronic kidney disease; I42.9 Cardiomyopathy, unspecified; I50.20 Unspecified systolic (congestive) heart failure; Z20.822 Contact with and (suspected) exposure to COVID-19; E11.22 Type 2 diabetes mellitus with diabetic chronic kidney disease; E78.5 Hyperlipidemia, unspecified; E87.5 Hyperkalemia; F17.210 Nicotine dependence, cigarettes, uncomplicated; I48.91 Unspecified atrial fibrillation; N18.31 Chronic kidney disease, stage 3a; F15.10 Other stimulant abuse, uncomplicated; N26.1 Atrophy of kidney (terminal); G47.33 Obstructive sleep apnea (adult) (pediatric); Z53.29 Procedure and treatment not carried out because of patient's decision for other reasons; Z68.34 Body mass index [BMI] 34.0-34.9, adult; Z83.3 Family history of diabetes mellitus; Z82.5 Family history of asthma and other chronic lower respiratory diseases; Z88.5 Allergy status to narcotic agent; Z79.84 Long term (current) use of oral hypoglycemic drugs
CPT/HCPCS: 36415; 71045; 76775; 80048; 80053; 81001; 82306; 82570; 82962; 83036; 83520; 83605; 83735; 83880; 83970; 84100; 84156; 84300; 84484; 85007; 85025; 85027; 85610; 85730; 86038; 86160; 86256; 87040; 87340; 93005; 93306; 94640; 94660; 99291; G0378; J1815; J2405; J2543

== ENCOUNTER 2024-07-10 10:15 | Emergency (ER) | payer BC, MEDICAID ==
[~2024-07-10] VITALS: Ht 165.1 cm; Wt 82.0 kg
[2024-07-10] MEDS ORDERED: ACETAMINOPHEN 325 MG TAB PO ONE (11:22)
[2024-07-10 11:34] LABS: Chloride 103 mmol/L (98-107); Potassium 4.1 mmol/L (3.5-5.1); Sodium 137 mmol/L (136-145)
[2024-07-10 11:35] LABS: Anion Gap 8 (5-15); Carbon Dioxide 26 mmol/L (20-31)
[2024-07-10 11:38] LABS: Hematocrit 52.8 % (41.0-53.0); Hemoglobin 17.7 g/dL (13.5-17.5); Mean Corpuscular Hemoglobin 30.2 pg (28.0-32.0); Mean Corpuscular Hgb Conc. 33.6 g/dL (32.0-36.0); Mean Corpuscular Volume 89.9 fL (80.0-100.0); Platelet Count (auto) 332 10^3/uL (140-450); Red Blood Cells 5.88 10^6/uL (4.5-5.90); Red Cell Distribution Width 14.1 % (11.8-14.3); White Blood Cell 13.3 10^3/uL (4.4-10.8)
[2024-07-10 11:39] LABS: Basophils % (manual) 0 (0.0-2.0); Blast Cells 0; Eosinophils % (manual) 0 (0-7); Metamyelocytes % 0; Myelocytes % 0; Promyelocytes % 0; Reactive Lymphocytes 0
[2024-07-10 11:40] LABS: BUN/Creatinine Ratio 28.8 (10.0-20.0)
[2024-07-10 11:46] LABS: Blood Urea Nitrogen 42 mg/dL (9-23); Glucose 152 mg/dL (74-106)
[2024-07-10 12:05] LABS: Band Neutrophils % (manual) 2; Lymphocytes % (manual) 33 (10.0-50.0); Monocytes % (manual) 12 (0-12)
[2024-07-10 12:06] LABS: Platelet Estimate Adequate
--- NOTE | 2024-07-10 12:29 | DVH ---
CHEST RADIOGRAPH Indication: sob Technique: Single frontal view of the chest was obtained Comparison: XY CHEST PORTABLE on DOS: 07/04/24 FINDINGS: Lines and Tubes: None Lungs: Right lower lobe consolidation. Pleura: No effusion. No pneumothorax. Cardiomediastinal contours: Unremarkable Bones: No acute osseous abnormality. IMPRESSION: 1. Right lower lobe consolidation.
--- NOTE | 2024-07-10 12:43 | ED.PDOC ---
History of Present Illness HPI Comments 69 y/o M, Hx of AFIB, COPD, DM, HLD, HTN, PNA, and polysubstance abuse, is BIBA for c/o shortness of breath for 1x week. Patient is a poor historian and endorses on still being short of breath following recent [facility] visit when he was Dx with PNA, earlier. He reports no recent sick contact, illicit substance use, or other relevant or pertinent Hx. Patient denies having any chest pain, cough, congestion, fever, chills, or other associated symptoms or modifiers at this time. Chief Complaint: Flu like Time Seen by MD: 10:10 Primary Care Provider: ARISTEO Reviewed Notes: Nurses Notes, Medications, Allergies Allergies: Coded Allergies: Codeine (Verified Allergy, Severe, 10/31/19) Home Meds No Active Prescriptions or Reported Meds Information Source: Patient, Emergency Med Personnel Mode of Arrival: EMS Severity: Moderate Timing: Weeks Duration: Since onset Past Medical History PAST MEDICAL HISTORY: AFIB, COPD, DM, High Lipids, HTN Past Medical History (Other): PNA Surgical History: Hernia Repair Surgical History (Other): cataracts Family History Family History: Reviewed,noncontributory to illness, Family hx of DM Social History Smoker: Cigarettes Alcohol: Denies ETOH Use Drugs: Marijuana, Methamphetamine Lives In: Home Respiratory: reports: shortness of breath All Other Systems: Reviewed and Negative (negative unless otherwise stated above or in HPI) Physical Exam General Appearance: Moderate Distress HEENT: Normal ENT Inspection, Pharynx Normal, TMs Normal Neck: Full Range of Motion, Non-Tender, Normal, Normal Inspection Respiratory: Chest Non-Tender, Lungs Clear, No Accessory Muscle Use, No Respiratory Distress, Normal Breath Sounds Cardiovascular: No Edema, No JVD, No Murmur, No Gallop, Normal Peripheral Pulses, Regular Rate/Rhythm Breast Exam: Deferred Gastrointestinal: No Organomegaly, Non Tender, No Pulsatile Mass, Normal Bowel Sounds, Soft Genitalia: Deferred Pelvic: Deferred Rectal: Deferred Extremities: No calf tenderness, Normal capillary refill, Normal inspection, Normal range of motion, Non-tender, No pedal edema Musculoskeletal : Apperance: Normal Neurologic: Alert, rail technician II-XII nml as Tested, No Motor Deficits, Normal Affect, Normal Mood, No Sensory Deficits Cerebellar Function: NOT DONE Reflexes: NOT DONE Skin: Dry, Normal Color, Warm Peripheral Pulses: 3+ Radial (R), 3+ Radial (L) Lymphatic: No Adenopathy Was a procedure done? Was a procedure done?: No Differential Dx Considerations may include: PNA, bronchitis, covid19, influenza, URI, viral syndrome, COPD exacerbation X-Ray, Labs, Meds, VS Vital Signs Date Time Temp Pulse Resp B/P (MAP) Pulse Ox O2 Delivery O2 Flow Rate FiO2 07/10/24 11:13 97.7 99 18 132/82 (99) 96 Lab Test 07/10/24 11:05 Range/Units White Blood Count 13.3 H 4.4-10.8 10^3/uL Red Blood Count 5.88 4.5-5.90 10^6/uL Hemoglobin 17.7 #H 13.5-17.5 g/dL Hematocrit 52.8 # 41.0-53.0 % Mean Corpuscular Volume 89.9 80.0-100.0 fL Mean Corpuscular Hemoglobin 30.2 28.0-32.0 pg Mean Corpuscular Hemoglobin Concent 33.6 32.0-36.0 g/dL Red Cell Distribution Width 14.1 11.8-14.3 % Platelet Count 332 140-450 10^3/uL Mean Platelet Volume 7.6 6.9-10.8 fL Neutrophils (%) (Auto) 37.0-80.0 % Lymphocytes (%) (Auto) 10.0-50.0 % Monocytes (%) (Auto) 0.0-12.0 % Basophils (%) (Auto) 0.0-2.0 % Neutrophils # (Auto) 1.6-8.6 10 ^3/uL Lymphocytes # (Auto) 0.4-5.4 10 ^3/uL Monocytes # (Auto) 0-1.3 10 ^3/uL Differential Total Cells Counted 100.0 100 Neutrophils % (Manual) 53 37.0-80.0 Band Neutrophils % (Manual) 2 Lymphocytes % (Manual) 33 10.0-50.0 Monocytes % (Manual) 12 0-12 Eosinophils % (Manual) 0 0-7 Basophils % (Manual) 0 0.0-2.0 Metamyelocytes % (manual) 0 Myelocytes % (Manual) 0 Promyelocytes % (Manual) 0 Blast Cells % (Manual) 0 Reactive Lymphocytes 0 Platelet Estimate Adequate Sodium Level 137 136-145 mmol/L Potassium Level 4.1 3.5-5.1 mmol/L Chloride Level 103 98-107 mmol/L Carbon Dioxide Level 26 20-31 mmol/L Anion Gap 8 5-15 Blood Urea Nitrogen 42 H 9-23 mg/dL Creatinine 1.46 H 0.700-1.30 mg/dL Glomerular Filtration Rate Calc 51 >90 mL/min BUN/Creatinine Ratio 28.8 H 10.0-20.0 Serum Glucose 152 H 74-106 mg/dL Calcium Level 9.0 8.7-10.4 mg/dL Patient alert. Came in because of shortness a breath. Not in distress. Vitals stable. Saturation pristine on room air. Respiration within normal limits. WBC slightly elevated. Reviewed his previous visit. Chest x-ray shows pneumonia. Not requiring oxygen. He is comfortable. Was given Rocephin. Was given azithromycin. Explained to the patient. Adel will transfer the patient [phone]. Time of 1ST Reevaluation: 10:40 Reevaluation 1ST: Unchanged Time of 2ND Reevaluation: 13:31 Reevaluation 2ND: Improved Patient Education/Counseling: Diagnosis, Treatment Family Education/Counseling: No Family Present Additional Information I reviewed the following notes from patient's past medical encounters: 07/04/24 ED physician documentation The following tests were ordered, and results were reviewed by me: BMP, CBC, D- DIMER, MANUAL DIFFERENTIAL, CXR Additional Information was gathered from interviewing the following independent historians: EMT I reviewed and agreed with the following test results read by other providers: CXR I discussed treatment and results with medical personnel Departure 1 Departure Time of Disposition: 13:32 Impression: Primary Impression: Pneumonia Qualified Codes: J18.9 - Pneumonia, unspecified organism Disposition: ADMITTED INPATIENT Admit to: Med Surg Condition: Guarded e-Prescriptions No Active Prescriptions or Reported Meds Critical Care Note Critical Care Time?: No Stability Stability form required: No Heart Score Heart Score: Heart Score Response (Comments) Value History N/A 0 EKG N/A 0 Age N/A 0 Risk Factors N/A 0 Troponin N/A 0 Total 0 I personally scribed for ROLANDO KOCH MD ([email or web address]) on 07/10/24 at 12:43. Electronically submitted by Chris Johnson [email or web address]). ROLANDO KOCH MD Jul 10, 2024 12:43
[2024-07-10] MEDS: cefTRIAXone 1GM/50ML D5W 50 ML IV ONE (19:37)
[2024-07-10] MEDS: AZITHROMYCIN 500MG/ 250ML 250 ML IV ONE (19:49)
[2024-07-10 20:00] VITALS: BP 162/113; PULSE 73; RESP 20; TEMP 97.5; O2SAT 94
[2024-07-10 20:11] LABS: COVID19 ANTIGEN SOFIA FIA NEGATIVE (NEGATIVE); Rapid Influenza A Negative (Negative); Rapid Influenza B Negative (Negative)
--- NOTE | 2024-07-11 07:04 | ECG ---
[facility] Test Date: 2024-07-10 Test Time: 19:53:45 Pat Name: LESLEY ABEBE Department: ED Room: Gender: M Registered Nurse Cardiac Telemetry: SHEBA : 1955 Requested By: ROLANDO KOCH Order Number: [id number] Reading MD: Faby Clayton Measurements Intervals [place] Rate: 141 P: 87 [place]: 109 QRS: 74 QRSD: 79 T: 29 QT: 285 QTc: 437 Interpretive Statements Sinus tachycardia with irregular rate LAE, consider biatrial enlargement Electronically Signed On 07-11-2024 8:55:48 PST by Faby Clayton Please click the below link to view image of tracing.
== END 2024-07-10 20:22 | disposition short-term general hospital (02) ==
LOC: EDBD 10:15 → ER 10:15
DX: J18.9 Pneumonia, unspecified organism (principal); J44.0 Chronic obstructive pulmonary disease with (acute) lower respiratory infection; E11.9 Type 2 diabetes mellitus without complications; E78.5 Hyperlipidemia, unspecified; F17.210 Nicotine dependence, cigarettes, uncomplicated; I10 Essential (primary) hypertension; F12.10 Cannabis abuse, uncomplicated; F15.10 Other stimulant abuse, uncomplicated; Z88.5 Allergy status to narcotic agent; Z98.890 Other specified postprocedural states; Z20.822 Contact with and (suspected) exposure to COVID-19
CPT/HCPCS: 36415; 71045; 80048; 85007; 85027; 87426; 87804; 93005; 96365; 96368; 99285; J0456; J0696